=== PATIENT | female | born 1940 | race Caucasian/White ===

== ENCOUNTER 2017-08-12 15:41 | Inpatient (IN) | payer MEDICARE ==
[2017-08-12] MEDS ORDERED: Ketorolac Tromethamine 30 MG/ML VIAL ONE (16:58)
[2017-08-12 17:09] LABS: #Eosinphils 0.3 thou/uL (0.0-0.7); #Lymphocytes 1.6 thou/uL (1.20-3.40); #Monocytes 0.5 thou/uL (0.11-0.59); #Neutrophils 4.1 thou/uL (1.40-6.50); %Basophils 0.4 % (0.0-1.0); %Eosinophils 4.7 % (0.0-10.0); %Monocytes 7.4 % (0.0-10.0); %Neutrophils 62.6 % (42.0-75.0); Hemoglobin 9.9 g/dL (12.0-16.0); Mean Corpuscular HGB CONC 31.7 g/dL (32.0-36.0); Mean Corpuscular Hemoglobin 29.2 pg (27.0-31.0); Mean Corpuscular Volume 92.3 fl (81.0-99.0); Mean Platelet Volume 7.2 fL (7.4-10.4); Platelet Count 185 thou/uL (130-400); RBC Distribution Width 11.5 % (11.5-14.5); Red Blood Cell (RBC) Count 3.39 mill/uL (4.20-5.40); White Blood Cell (WBC) Count 6.5 thou/uL (4.8-10.8)
[2017-08-12 17:30] LABS: ALT (SGPT) 11 U/L (8-55); AST (SGOT) 14 U/L (5-34); Albumin 4.1 g/dL (3.4-4.8); Alkaline Phosphatase 79 U/L (40-150); Anion Gap 14 mmol/L (10-20); BUN (Urea Nitrogen) 36 mg/dL (9.8-20.1); Bilirubin, Total 0.3 mg/dL (0.2-1.2); Calc. Creatinine Clearance 0 mL/min (70-130); Calcium 8.9 mg/dL (7.8-10.44); Carbon Dioxide 24 mmol/L (23-31); Chloride 105 mmol/L (98-107); Estimated GFR-MDRD 39; Globulin 2.9 g/dL (2.4-3.5); Glucose 166 mg/dL (83-110); Sodium 138 mmol/L (136-145)
[2017-08-12] MEDS ORDERED: Ampicillin/Sulbactam 3 GM in Sodium Chloride 0.9% 100 ML IVPB ONE (17:30)
--- NOTE | 2017-08-12 18:14 | RAD ---
FRONTAL VIEW CHEST: 08/12/17 COMPARISON: 04/20/17 HISTORY: Fever. FINDINGS: There is enlargement of the cardiac silhouette and prominence of pulmonary vasculature. Bilateral int erstitial opacities are seen. There is obscuration of the left lung base by the enlarged cardiac silh ouette. Vascular calcifications are present. IMPRESSION: Findings indicate decompensated CHF. Correlate clinically. Recommend imaging followup to confirm reso lution. POS: [facility]
--- NOTE | 2017-08-12 18:16 | RAD ---
RIGHT LEG THREE VIEWS: 08/12/17 INDICATION: Cellulitis, pitting edema. FINDINGS: There is no fracture or dislocation of the osseous structures of the right leg. There is chronic appe aring deformity of the imaged right foot. No radiopaque foreign bodies are identified. IMPRESSION: No acute osseous abnormality of the right leg. POS: [facility]
[2017-08-12] MEDS ORDERED: hydrALAZINE 20 MG/ML VIAL SLOW IVP PRN (20:20)
[2017-08-12] MEDS ORDERED: cloNIDine 0.1 MG TAB PO PRN (20:20)
[2017-08-12] MEDS ORDERED: Ondansetron PF 4 MG/2 ML Vial IVP PRN (20:20)
[2017-08-12] MEDS ORDERED: Ondansetron ODT 4 MG TAB PO PRN (20:20)
[2017-08-12] MEDS ORDERED: HumaLOG 300 UNITS/3 ML VIAL SC PRN ×2 (20:20)
[2017-08-12] MEDS ORDERED: Dextrose 50% Abboject 50 ML SYRINGE SLOW IVP PRN (20:20)
[2017-08-12] MEDS ORDERED: Dextrose 5% in Water 1,000 ML IV PRN (20:20)
[2017-08-12 22:02] VITALS: BMI 43.0
--- NOTE | 2017-08-12 23:52 | ULT ---
ULTRASOUND WITH DOPPLER DUPLEX VENOUS LOWER EXTREMITY RIGHT CPT: 59040 ICD-10-PCS: B54D HISTORY: Pain, edema of right lower extremity. TECHNIQUE: Color flow Doppler, spectral waveform analysis of pulsed Doppler, and giles-scale imaging with giovani rocío and augmentation, were used to evaluate the right common femoral, femoral, popliteal, posterior tibial, and superficial femoral, veins; and the proximal portions of the profunda femoral and greater saphenous, veins. FINDINGS: Appropriate compressibility and flow within the imaged deep vein system of the right lower extremity. There is a incidentally imaged circumscribed hypoechoic focus of the right thigh soft tissues measuri ng approximately 2 cm in diameter. IMPRESSION: 1. No DVT. 2. Incidental note of cystic structure within the soft tissues of the right thigh. This is of in determinate etiology. Consider imaging followup to provide continued assessment. POS: [facility]
--- NOTE | 2017-08-13 00:31 | HP ---
DATE OF ADMISSION: 08/12/2017 PRIMARY CARE PROVIDER: Jay Osorio M.D. CHIEF COMPLAINT: Lower extremity pain and swelling. HISTORY OF PRESENT ILLNESS: This is a 77-year-old female who presents from [place] [facility] where she has been a current resident over the last 3 years who has noticed incr easing pain, redness, and swelling in the right greater than left lower extremities. The patient morgan s admit to history of venous stasis dermatitis and cellulitis, most recently treated in the summer of 2016. The patient denies any recent antibiotic exposure, recent fall, injury, greer, or chemical ex posure. The patient felt like the redness was increasing and that it would resolve on its own; howev er, this was progressed with red areas moving up above her knee into the middle a portion of the thig h. The patient denied any known fever or documented fever, but states she has felt warm. The patien t denied any cough, shortness of breath, fainting episodes or shortness of breath while lying flat. The patient does state that she was recently placed on diabetic medications after glucose was consist ent with new onset diabetes. The patient is unsure of the name of the medication, but denies insulin therapy. The patient denied taking any specific home remedies for the lower extremity, but does pro p her leg up when she is sitting. The patient states she is minimally mobile with use of a rolling w alker and contact guard assistance at the [facility]. The patient denied any recent fall s. In the emergency room, the patient underwent general evaluation including plain radiographs of th e lower extremity showing no acute findings. Chest x-ray was performed showing questionable edema; h owever, patient has no specific hypoxia or shortness of breath on exam. PAST MEDICAL HISTORY: 1. Chronic venous stasis with intermittent dermatitis. 2. Generalized weakness with use of a rolling walker. 3. History of venous insufficiency of lower extremities. 4. Diabetes mellitus type 2. Last hemoglobin A1c 10.3 on 06/03/2017. 5. Hypertension. 6. Hypothyroidism. 7. History of severe cervical spinal stenosis with radiculopathy and myelopathy, improved. 8. Osteoarthritis. 9. Morbid obesity. 10. Chronic back pain. PAST SURGICAL HISTORY: 1. Status post cervical spine decompression and fusion. 2. Status post lumbar laminectomy x3. 3. Status post hysterectomy. 4. Status post EGD. CURRENT MEDICATIONS: Based on previous admission in 2017: 1. Lasix 40 mg p.o. b.i.d. 2. Gabapentin 100 mg p.o. t.i.d. 3. Levothyroxine 100 mcg p.o. daily. 4. Lisinopril 10 mg one tab p.o. daily. 5. Metformin 500 mg p.o. b.i.d. 6. Kenalog 200 mg topically b.i.d. p.r.n. ALLERGIES: MORPHINE SULFATE and BACTRIM. FAMILY HISTORY: Positive for hypertension and diabetes. SOCIAL HISTORY: The patient resides at [facility] x3 years. No current alc ohol, tobacco, or illicit drug use. Ambulates with a rolling walker and contact guard assistance. N o current falls. Accompanied by her daughter in the emergency room. REVIEW OF SYSTEMS: The following complete review of systems was negative, unless otherwise mentioned in the HPI or below: Constitutional: Weight loss or gain, ability to conduct usual activities. Sk in: Rash, itching. Eyes: Double vision, pain. ENT/Mouth: Nose bleeding, neck stiffness, pain, te nderness. Cardiovascular: Palpitations, dyspnea on exertion, orthopnea. Respiratory: Shortness of breath, wheezing, cough, hemoptysis, fever or night sweats. Gastrointestinal: Poor appetite, abdom inal pain, heartburn, nausea, vomiting, constipation, or diarrhea. Genitourinary: Urgency, frequenc y, dysuria, nocturia. Musculoskeletal: Pain, swelling. Neurologic/Psychiatric: Anxiety, depressio n. Allergy/Immunologic: Skin rash, bleeding tendency. Otherwise negative except as stated per HPI. PHYSICAL EXAMINATION: VITAL SIGNS: On admission, blood pressure 153/56, pulse 63, respiratory rate 22, temperature 98 deg james Fahrenheit, O2 saturation 96% on 2 liters per minute by nasal cannula. GENERAL APPEARANCE: This is a 77-year-old female, alert and oriented x3, pleasant, convers ant, smiling, in no acute distress. HEENT: Pupils are equal, round, and reactive to light and accommodation. Extraocular muscles are in tact. No scleral icterus, no conjunctival injection. Nares patent. OP is clear. Teeth in fair rep air. NECK: Supple, no cervical adenopathy, no thyromegaly, no carotid bruits, no JVD appreciated. Cervic al spine with limited range of motion in the terminal degrees of rotation. No meningeal signs apprec iated. CHEST: Diminished breath sounds in the bases bilaterally. No rhonchi, wheezing, or crackles. CARDIOVASCULAR: S1, S2 with distant heart sounds. No murmur detected. ABDOMEN: Obese, soft, nontender, nondistended. Bowel sounds are positive in all four quadrants. Th ere is no hepatosplenomegaly. Landmarks are difficult to palpate due to patient's body habitus. EXTREMITIES: Bilateral lower extremity edema to the knees. Right lower extremity with erythema circ umferential below the knee with smaller section of erythema extending above the knee medially. Warm to touch, mild tenderness to palpation. No palpable cords. Pulses are palpable distally at the dors johana pedis, posterior tibial, and popliteal arteries bilaterally. Capillary refill less than 2 secon ds. NEUROLOGIC: Cranial nerves II-XII are grossly intact. No focal or lateralizing signs appreciated. The patient not observed ambulatory during this exam. PERTINENT LABORATORY AND X-RAY FINDINGS: Sodium 138, potassium 5.0, chloride 105, CO2 of 24, BUN 36, creatinine 1.32 with estimated GFR of 39, glucose 166, calcium 8.9, hemoglobin A1c 10.3 on 8. LFTs within normal limits. Albumin 4.1. CBC showed a white blood cell count of 6.5, hemoglobin 10, hematocrit 31, platelet count 185 with normal differential. Plain radiographs of the right lower extremity including tibia and fibula views showed no acute process. Portable chest x-ray dated 08/02 showed questionable prominence of pulmonary vasculature bilaterally. ASSESSMENT AND PLAN: 1. Right lower extremity acute cellulitis. The patient will be admitted to the medical floor. We w ill continue vancomycin 1 gram IV q.12 hours with additional Rocephin 2 grams IV q.24 hours. We will continue serial monitoring of clinical improvement with antibiotic therapy. Check right lower extrem ity venous Doppler study to rule out deep venous thrombosis. Continue Lovenox 40 mg subcutaneously d aily. 2. Chronic venous stasis dermatitis with venous insufficiency. We will continue symptomatic and sup portive management. Consider Wound Care consult if patient clinically decompensates. 3. Chronic kidney disease stage 3. Avoid nephrotoxic agents and contrast media. Repeat creatinine in the a.m. Hold metformin. 4. Diabetes mellitus type 2. Last hemoglobin A1c 10.3 on 05/2017. Insulin sliding scale for reflex ana coverage. Accu-Cheks before meals and at bedtime. 5. Deconditioning. We will obtain PT evaluation for functional assessment. Contact guard assistanc e for out of bed to chair. Fall risk precautions. 6. Prophylaxis. Sequential compression devices held due to lower extremity edema. Lovenox 40 mg marroquin bcutaneously daily. Pepcid 20 mg p.o. b.i.d. 7. Code status is FULL. Surrogate medical decision maker is the patient's daughter.
[2017-08-13] MEDS: Famotidine 20 MG TAB PO SCH ×3 (00:51→20:26)
[2017-08-13] MEDS: cefTRIAXone\\ROCEPHIN 2 GM in Sodium Chloride 0.9% 100 ML IVPB SCH ×2 (00:51→20:27)
[2017-08-13] MEDS: Vancomycin HCl 1 GM in Premix Bag 1 BAG IVPB SCH ×2 (06:06→17:06)
[2017-08-13 08:01] LABS: ALT (SGPT) 13 U/L (8-55); AST (SGOT) 13 U/L (5-34); Albumin 3.7 g/dL (3.4-4.8); Alkaline Phosphatase 68 U/L (40-150); Anion Gap 13 mmol/L (10-20); BUN (Urea Nitrogen) 39 mg/dL (9.8-20.1); Bilirubin, Total 0.4 mg/dL (0.2-1.2); Calc. Creatinine Clearance 72 mL/min (70-130); Calcium 8.6 mg/dL (7.8-10.44); Carbon Dioxide 25 mmol/L (23-31); Chloride 107 mmol/L (98-107); Estimated GFR-MDRD 41; Globulin 2.5 g/dL (2.4-3.5); Glucose 77 mg/dL (83-110); Potassium 4.6 mmol/L (3.5-5.1); Protein, Total 6.2 g/dL (6.0-8.3); Sodium 140 mmol/L (136-145)
[2017-08-13] MEDS: Enoxaparin Sodium 40 MG/0.4 ML SYRINGE SC SCH (08:08)
[2017-08-13 08:41] LABS: Hemoglobin 9.4 g/dL (12.0-16.0); Mean Corpuscular HGB CONC 32.7 g/dL (32.0-36.0); Mean Corpuscular Hemoglobin 30.1 pg (27.0-31.0); Mean Corpuscular Volume 92.1 fl (81.0-99.0); Mean Platelet Volume 7.7 fL (7.4-10.4); Platelet Count 178 thou/uL (130-400); RBC Distribution Width 11.5 % (11.5-14.5); Red Blood Cell (RBC) Count 3.14 mill/uL (4.20-5.40); White Blood Cell (WBC) Count 5.3 thou/uL (4.8-10.8)
[2017-08-13] MEDS ORDERED: Polyethylene Glycol 3350 17 GM Packet PO PRN (09:02)
[2017-08-13] MEDS ORDERED: Mag-Al Plus 1200 MG/1200 MG/120 MG/30 ML UDCUP PO PRN (09:02)
[2017-08-13] MEDS ORDERED: Milk Of Magnesia 30 ML UDCUP PO PRN (09:02)
[2017-08-13] MEDS ORDERED: Acetaminophen 325 MG TAB PO PRN (09:02)
[2017-08-13] MEDS: Glimepiride 1 MG TAB PO SCH ×2 (09:35→20:23)
[2017-08-13 09:48] LABS: Band 1 % (5-11); Eosinophils 7 % (0-10); Lymphocytes 30 % (21-51); MDiff Complete? YES; Monocytes 7 % (0-10); Neutrophil 55 % (42-75); RBC Morphology Normal
--- NOTE | 2017-08-13 11:34 | PDOC.PN ---
- Subjective Encounter Start Date: 08/13/17 Encounter Start Time: 11:33 Subjective: feels better.still some pain in left lef -: Rash better - Objective Resuscitation Status: Resuscitation Status FULL:Full Resuscitation MAR Reviewed: Yes Vital Signs & Weight: Vital Signs (12 hours) Temp Pulse Resp BP Pulse Ox 08/13/17 08:32 98.7 F 70 16 119/70 94 L 08/13/17 08:00 98.7 F 70 16 94 L 08/13/17 04:00 97.5 F L 69 18 123/72 96 08/13/17 00:00 98.2 F 66 18 100/62 97 Result Diagrams: 08/13/17 03:30 08/13/17 06:30 Additional Labs: Accuchecks 08/13/17 08/12/17 04:09 20:32 POC Glucose 91 128 H Radiology Reviewed by me: Yes (Doppler-no DVT) Phys Exam - Physical Examination Constitutional: NAD HEENT: PERRLA, moist MMs, sclera anicteric, oral pharynx no lesions Neck: no nodes, no JVD, supple, full ROM Respiratory: no wheezing, no rales, no rhonchi, clear to auscultation bilateral Cardiovascular: RRR, no significant murmur Gastrointestinal: soft, non-tender, no distention, positive bowel sounds Musculoskeletal: pulses present, edema present erythem abetter on R leg Neurological: non-focal, normal sensation, moves all 4 limbs Psychiatric: normal affect, A&O x 3 Skin: no rash Dx/Plan (1) Cellulitis of right leg Code(s): L03.115 - CELLULITIS OF RIGHT LOWER LIMB Status: Acute (2) Venous stasis ulcer of left lower extremity Code(s): I83.029 - VARICOSE VEINS OF LEFT LOWER EXTREMITY W ULCER OF UNSP SITE Status: Chronic (3) DJD (degenerative joint disease), lumbar Code(s): M51.36 - OTHER INTERVERTEBRAL DISC DEGENERATION, LUMBAR REGION Status : Chronic (4) Hypertension Code(s): I10 - ESSENTIAL (PRIMARY) HYPERTENSION Status: Chronic (5) Hypothyroidism Code(s): E03.9 - HYPOTHYROIDISM, UNSPECIFIED Status: Chronic (6) Morbid obesity Code(s): E66.01 - MORBID (SEVERE) OBESITY DUE TO EXCESS CALORIES Status: Chronic (7) Anemia Code(s): D64.9 - ANEMIA, UNSPECIFIED Status: Resolved - Plan continue antibiotics, PT/OT, out of bed/ambulate, DVT proph w/SCDs cont IV ABx. Clinically better.follow Cx -: OT/PT * . Review of Systems - Review of Systems Constitutional: negative: fever, chills, sweats, weakness, malaise, other ENT: negative: Ear Pain, Ear Discharge, Nose Pain, Nose Discharge, Nose Congestion, Mouth Pain, Mouth Swelling, Throat Pain, Throat Swelling, Other Respiratory: negative: Cough, Dry, Shortness of Breath, Hemoptysis, SOB with Excertion, Pleuritic Pain, Sputum, Wheezing Cardiovascular: negative: chest pain, palpitations, orthopnea, paroxysmal nocturnal dyspnea, edema, light headedness, other Gastrointestinal: negative: Nausea, Vomiting, Abdominal Pain, Diarrhea, Constipation, Melena, Hematochezia, Other Genitourinary: negative: Dysuria, Frequency, Incontinence, Hematuria, Retention , Other Musculoskeletal: negative: Neck Pain, Shoulder Pain, Arm Pain, Back Pain, Hand Pain, Leg Pain, Foot Pain, Other Skin: Rash. negative: Lesions, Barry, Bruising, Other Neurological: negative: Weakness, Numbness, Incoordination, Change in Speech, Confusion, Seizures, Other - Medications/Allergies Allergies/Adverse Reactions: Allergies Allergy/AdvReac Type Severity Reaction Status Date / Time morphine Allergy Verified 06/30/16 20:06 sulfamethoxazole Allergy Verified 06/30/16 20:06 [From Bactrim] trimethoprim [From Bactrim] Allergy Verified 06/30/16 20:06 Medications: Current Medications Acetaminophen (Tylenol) 1,000 mg PO Q6H PRN PRN Reason: Headache/Fever or Mild Pain Acetaminophen (Tylenol) 650 mg PO Q4H PRN PRN Reason: Fever>101/(Mi/Mod/Sev) Pain Al Hydroxide/Mg Hydroxide (Maalox Plus) 30 ml PO Q4H PRN PRN Reason: GI Upset Clonidine (Catapres) 0.1 mg PO Q4H PRN PRN Reason: Systolic BP > 180 Dextrose/Water (Dextrose 50%) 25 gm SLOW IVP PRN PRN PRN Reason: Hypoglycemia Enoxaparin Sodium (Lovenox) 40 mg SC 0900 RELL Last Admin: 08/13/17 08:08 Dose: 40 mg Famotidine (Pepcid) 20 mg PO BID [facility] Last Admin: 08/13/17 08:08 Dose: 20 mg Furosemide (Lasix) 40 mg PO BID [facility] Gabapentin (Neurontin) 100 mg PO TID [facility] Glimepiride (Amaryl) 1 mg PO BID [facility] Last Admin: 08/13/17 09:35 Dose: 1 mg Glucagon (Glucagon) 1 mg IM PRN PRN PRN Reason: Hypoglycemia Hydralazine HCl (Apresoline) 10 mg SLOW IVP Q4H PRN PRN Reason: Systolic BP > 180 Ceftriaxone Sodium 2 gm/ (Sodium Chloride) 100 mls @ 200 mls/hr IVPB Q24HR [facility] Last Admin: 08/13/17 00:51 Dose: Not Given Dextrose/Water (D5w) 1,000 mls @ 0 mls/hr IV .Q0M PRN; As Directed PRN Reason: Hypoglycemia Vancomycin HCl 1 gm/ Device 200 mls @ 200 mls/hr IVPB 0600,1800 [facility] Last Admin: 08/13/17 06:06 Dose: 200 mls Insulin Human Lispro (Humalog) 0 units SC .MILD SLIDING SCALE PRN PRN Reason: Mild Correctional Scale Insulin Human Lispro (Humalog) 0 units SC .BEDTIME SLIDING SC PRN PRN Reason: Bedtime Correctional Scale Levothyroxine Sodium (Synthroid) 100 mcg PO 0600 [facility] Lisinopril (Zestril) 10 mg PO DAILY [facility] Magnesium Hydroxide (Milk Of Magnesium) 30 ml PO DAILY PRN PRN Reason: Constipation Multivitamins (Theragran) 1 tab PO DAILY [facility] Ondansetron HCl (Zofran Odt) 4 mg PO Q6H PRN PRN Reason: Nausea/Vomiting Ondansetron HCl (Zofran) 4 mg IVP Q6H PRN PRN Reason: Nausea/Vomiting Polyethylene Glycol (Miralax) 17 gm PO DAILYPRN PRN PRN Reason: Constipation Sodium Chloride (Flush - Normal Saline) 10 ml IVF Q12HR [facility] Sodium Chloride (Flush - Normal Saline) 10 ml IVF PRN PRN PRN Reason: Saline Flush Spironolactone (Aldactone) 12.5 mg PO DAILY [facility] Triamcinolone Acetonide (Kenalog 0.1% Cream) 0 gm TOP BID [facility]
[2017-08-13] MEDS: Gabapentin 100 MG CAP PO SCH ×2 (14:00→20:24)
[2017-08-13] MEDS: Acetaminophen 500 MG TAB PO PRN (20:26)
[2017-08-13] MEDS: Triamcinolone 0.1% Cream 15 GM TUBE TOP SCH (20:29)
[2017-08-13] MEDS ORDERED: Furosemide 40 MG TAB PO SCH (21:00)
[2017-08-13] MEDS ORDERED: Glimepiride 4 MG TAB PO SCH (21:00)
[2017-08-13] MEDS ORDERED: Triamcinolone 40 MG/ML VIAL TOP SCH (21:00)
[2017-08-14 05:48] LABS: Vancomycin, Trough 21.2 ug/mL
[2017-08-14] MEDS: Levothyroxine Sodium 100 MCG TAB PO SCH (06:04)
[2017-08-14] MEDS: Vancomycin HCl 1 GM in Premix Bag 1 BAG IVPB SCH (06:04)
[2017-08-14] MEDS ORDERED: Non-Formulary Item 1 EACH (Multivitamin [Multivitamins] 1 CAP) PO SCH (09:00)
[2017-08-14] MEDS: Famotidine 20 MG TAB PO SCH ×2 (09:37→20:13)
[2017-08-14] MEDS: Glimepiride 1 MG TAB PO SCH ×2 (09:37→20:13)
[2017-08-14] MEDS: Lisinopril 10 MG TAB PO SCH (09:37)
[2017-08-14] MEDS: Furosemide 40 MG TAB PO SCH ×2 (09:38→14:33)
[2017-08-14] MEDS: Multivit, Therapeutic 1 TAB PO SCH (09:38)
[2017-08-14] MEDS: Spironolactone 25 MG TAB PO SCH (09:38)
[2017-08-14] MEDS: Gabapentin 100 MG CAP PO SCH ×3 (09:38→20:13)
[2017-08-14] MEDS: Enoxaparin Sodium 40 MG/0.4 ML SYRINGE SC SCH (09:40)
[2017-08-14] MEDS: Triamcinolone 0.1% Cream 15 GM TUBE TOP SCH ×2 (09:48→23:42)
--- NOTE | 2017-08-14 11:53 | PQF ---
CLINICAL DOCUMENTATION IMPROVEMENT CLARIFICATION FORM: ICD-10 Updated PLEASE DO AN ADDENDUM TO THE PROGRESS NOTE WITH ANY DOCUMENTATION UPDATES OR ADDITIONS AND CARRY THROUGH TO DC SUMMARY. THANK YOU. DATE: 08/14/17 ATTN: Dr. Cerda Please exercise your independent, professional judgment in responding to the clarification form. Clinical indicators are provided on the bottom of this form for your review Please check appropriate box(s): I (concur) with the Nursing Assessment findings as stated below. [ ] Pressure Ulcer: (Stage I: Erythema; Stage II: Partial thickness; Stage III : Full thickness; Stage IV: Necrosis to muscle/bone) [ X ] Location: ____Sacrococcygeal Stage (I to IV): _2 (Left Right Bilateral N/ A ) [ ] Location: Stage (I to IV): (Left Right Bilateral N/A ) [ ] No pressure ulcer diagnosis [ ] Deep tissue injury [ ] Other diagnosis [ ] Unable to determine In addition, please specify: Present on Admission (POA): [ X ] Yes [ ] No [ ] Unable to determine For continuity of documentation, please document condition throughout progress notes and discharge summary. Thank You. CLINICAL INDICATORS - SIGNS / SYMPTOMS / LABS NURSING ASSESSMENT 08/13/17 @ 0800: SACROCOCCYGEAL PRESSURE ULCER. STAGE II RISKS: H&P: HX OF CHRONIC VENOUS STASIS W/ INTERMITTENT DERMATITIS. GENERALIZED WEAKNESS W/ USE OF A ROLLING WALKER. DM 2, HYPERTENSION. TREATMENT: SKIN INTERVENTIONS PER NURSING PROTOCOL: SKIN KEPT FROM EXCESSIVE MOISTURE TURN 30 DEGREES SIDE TO SIDE. SUPPORT PILLOWS PLACED. Pre-ulcer skin changes limited to persistent focal edema (Stage 1) Abrasion, blister, partial thickness skin loss involving epidermis and/or dermis (Stage 2) Full thickness skin loss involving damage or necrosis of SQ tissue. (Stage 3) Necrosis of soft tissue through to underlying muscle, tendon, or bone. (Stage 4) Purple or maroon discolored skin or blood filled blister Thank you, Ashley (This form is maintained as a part of the permanent medical record) 2015 [email or web address]. All Rights Reserved Ashley London RN, BSN [email or web address] Office: [phone] [facility]
--- NOTE | 2017-08-14 15:06 | PDOC.PN ---
- Subjective Encounter Start Date: 08/14/17 Encounter Start Time: 15:04 Subjective: feels better. no new complaints - Objective Resuscitation Status: Resuscitation Status FULL:Full Resuscitation MAR Reviewed: Yes Vital Signs & Weight: Vital Signs (12 hours) Temp Pulse Resp BP BP Pulse Ox 08/14/17 09:37 117/70 08/14/17 08:00 98.9 F 70 18 94 L 08/14/17 07:26 98.9 F 70 18 117/70 94 L I&O: 08/13/17 08/14/17 08/15/17 06:59 06:59 06:59 Intake Total 680 400 Balance 680 400 Result Diagrams: 08/13/17 03:30 08/13/17 06:30 Additional Labs: Accuchecks 08/14/17 08/14/17 08/13/17 11:24 06:07 20:23 POC Glucose 192 H 94 186 H 08/13/17 17:12 POC Glucose 112 H Microbiology 08/12/17 16:57 Venous blood - Right Hand Blood Culture - Preliminary Specimen has been received and culture in progress. No Growth to date. 08/12/17 16:57 Venous blood - Right Hand Blood Culture - Preliminary NO GROWTH AT 48 HOURS 08/12/17 16:57 Venous blood - Right Arm Blood Culture - Preliminary Specimen has been received and culture in progress. No Growth to date. 08/12/17 16:57 Venous blood - Right Arm Blood Culture - Preliminary NO GROWTH AT 48 HOURS Laboratory Tests 12/15/16 01/23/17 03/12/17 05:00 11:45 16:30 Creatinine 0.82 1.20 H 1.27 H 04/20/17 05/27/17 08/12/17 23:25 16:20 16:52 Creatinine 1.29 H 1.26 H 1.32 H 08/13/17 06:30 Creatinine 1.27 H Phys Exam - Physical Examination Constitutional: NAD HEENT: PERRLA, moist MMs, sclera anicteric, oral pharynx no lesions Neck: no nodes, no JVD, supple, full ROM Respiratory: no wheezing, no rales, no rhonchi, clear to auscultation bilateral Cardiovascular: RRR, no significant murmur, no rub, gallop Gastrointestinal: soft, non-tender, no distention, positive bowel sounds Musculoskeletal: pulses present, edema present reduced erythema of R lower leg Psychiatric: normal affect, A&O x 3 Skin: no rash Dx/Plan (1) Cellulitis of right leg Code(s): L03.115 - CELLULITIS OF RIGHT LOWER LIMB Status: Acute (2) Venous stasis ulcer of left lower extremity Code(s): I83.029 - VARICOSE VEINS OF LEFT LOWER EXTREMITY W ULCER OF UNSP SITE Status: Chronic (3) DJD (degenerative joint disease), lumbar Code(s): M51.36 - OTHER INTERVERTEBRAL DISC DEGENERATION, LUMBAR REGION Status : Chronic (4) Hypertension Code(s): I10 - ESSENTIAL (PRIMARY) HYPERTENSION Status: Chronic (5) Hypothyroidism Code(s): E03.9 - HYPOTHYROIDISM, UNSPECIFIED Status: Chronic (6) Morbid obesity Code(s): E66.01 - MORBID (SEVERE) OBESITY DUE TO EXCESS CALORIES Status: Chronic (7) Anemia Code(s): D64.9 - ANEMIA, UNSPECIFIED Status: Resolved (8) Sacral decubitus ulcer, stage II Code(s): L89.152 - PRESSURE ULCER OF SACRAL REGION, STAGE 2 Status: Chronic - Plan continue antibiotics, out of bed/ambulate, DVT proph w/SCDs cont IV ABx.clinically better -: asking for Swing bed placement.wiill try to arrange -: DC in next 24 hours if arranged -: cont home meds as below HS stable * . Review of Systems - Review of Systems Constitutional: weakness. negative: fever, chills, sweats, malaise, other ENT: negative: Ear Pain, Ear Discharge, Nose Pain, Nose Discharge, Nose Congestion, Mouth Pain, Mouth Swelling, Throat Pain, Throat Swelling, Other Respiratory: negative: Cough, Dry, Shortness of Breath, Hemoptysis, SOB with Excertion, Pleuritic Pain, Sputum, Wheezing Cardiovascular: negative: chest pain, palpitations, orthopnea, paroxysmal nocturnal dyspnea, edema, light headedness, other Gastrointestinal: negative: Nausea, Vomiting, Abdominal Pain, Diarrhea, Constipation, Melena, Hematochezia, Other Genitourinary: negative: Dysuria, Frequency, Incontinence, Hematuria, Retention , Other Musculoskeletal: negative: Neck Pain, Shoulder Pain, Arm Pain, Back Pain, Hand Pain, Leg Pain, Foot Pain, Other Skin: negative: Rash, Lesions, Barry, Bruising, Other Neurological: negative: Weakness, Numbness, Incoordination, Change in Speech, Confusion, Seizures, Other - Medications/Allergies Allergies/Adverse Reactions: Allergies Allergy/AdvReac Type Severity Reaction Status Date / Time morphine Allergy Verified 06/30/16 20:06 sulfamethoxazole Allergy Verified 06/30/16 20:06 [From Bactrim] trimethoprim [From Bactrim] Allergy Verified 06/30/16 20:06 Medications: Current Medications Acetaminophen (Tylenol) 1,000 mg PO Q6H PRN PRN Reason: Headache/Fever or Mild Pain Last Admin: 08/13/17 20:26 Dose: 1,000 mg Acetaminophen (Tylenol) 650 mg PO Q4H PRN PRN Reason: Fever>101/(Mi/Mod/Sev) Pain Al Hydroxide/Mg Hydroxide (Maalox Plus) 30 ml PO Q4H PRN PRN Reason: GI Upset Clonidine (Catapres) 0.1 mg PO Q4H PRN PRN Reason: Systolic BP > 180 Dextrose/Water (Dextrose 50%) 25 gm SLOW IVP PRN PRN PRN Reason: Hypoglycemia Enoxaparin Sodium (Lovenox) 40 mg SC 0900 [facility] Last Admin: 08/14/17 09:40 Dose: 40 mg Famotidine (Pepcid) 20 mg PO BID [facility] Last Admin: 08/14/17 09:37 Dose: 20 mg Furosemide (Lasix) 40 mg PO 0900,1400 [facility] Last Admin: 08/14/17 14:33 Dose: 40 mg Gabapentin (Neurontin) 100 mg PO TID [facility] Last Admin: 08/14/17 14:33 Dose: 100 mg Glimepiride (Amaryl) 1 mg PO BID [facility] Last Admin: 08/14/17 09:37 Dose: 1 mg Glucagon (Glucagon) 1 mg IM PRN PRN PRN Reason: Hypoglycemia Hydralazine HCl (Apresoline) 10 mg SLOW IVP Q4H PRN PRN Reason: Systolic BP > 180 Ceftriaxone Sodium 2 gm/ (Sodium Chloride) 100 mls @ 200 mls/hr IVPB Q24HR [facility] Last Admin: 08/13/17 20:27 Dose: 100 mls Dextrose/Water (D5w) 1,000 mls @ 0 mls/hr IV .Q0M PRN; As Directed PRN Reason: Hypoglycemia Vancomycin HCl 750 mg/ Sodium (Chloride) 250 mls @ 200 mls/hr IVPB 0600,1800 [facility] Insulin Human Lispro (Humalog) 0 units SC .MILD SLIDING SCALE PRN PRN Reason: Mild Correctional Scale Insulin Human Lispro (Humalog) 0 units SC .BEDTIME SLIDING SC PRN PRN Reason: Bedtime Correctional Scale Levothyroxine Sodium (Synthroid) 100 mcg PO 0600 [facility] Last Admin: 08/14/17 06:04 Dose: 100 mcg Lisinopril (Zestril) 10 mg PO DAILY [facility] Last Admin: 08/14/17 09:37 Dose: 10 mg Magnesium Hydroxide (Milk Of Magnesium) 30 ml PO DAILY PRN PRN Reason: Constipation Miscellaneous Medication (Pharmacy To Dose) 1 each IVPB PRN PRN PRN Reason: . Multivitamins (Theragran) 1 tab PO DAILY [facility] Last Admin: 08/14/17 09:38 Dose: 1 tab Ondansetron HCl (Zofran Odt) 4 mg PO Q6H PRN PRN Reason: Nausea/Vomiting Ondansetron HCl (Zofran) 4 mg IVP Q6H PRN PRN Reason: Nausea/Vomiting Polyethylene Glycol (Miralax) 17 gm PO DAILYPRN PRN PRN Reason: Constipation Sodium Chloride (Flush - Normal Saline) 10 ml IVF Q12HR [facility] Last Admin: 08/14/17 09:38 Dose: 10 ml Sodium Chloride (Flush - Normal Saline) 10 ml IVF PRN PRN PRN Reason: Saline Flush Spironolactone (Aldactone) 12.5 mg PO DAILY [facility] Last Admin: 08/14/17 09:38 Dose: 12.5 mg Triamcinolone Acetonide (Kenalog 0.1% Cream) 0 gm TOP BID [facility] Last Admin: 08/14/17 09:48 Dose: 1 applic
[2017-08-14] MEDS: Vancomycin HCl 750 MG in Sodium Chloride 0.9% 250 ML 250 ML IVPB SCH (17:36)
[2017-08-14] MEDS: cefTRIAXone\\ROCEPHIN 2 GM in Sodium Chloride 0.9% 100 ML IVPB SCH (20:12)
[2017-08-14] MEDS: Acetaminophen 500 MG TAB PO PRN (20:16)
[2017-08-15] MEDS: Vancomycin HCl 750 MG in Sodium Chloride 0.9% 250 ML 250 ML IVPB SCH (06:15)
[2017-08-15] MEDS: Levothyroxine Sodium 100 MCG TAB PO SCH (06:15)
[2017-08-15] MEDS: Multivit, Therapeutic 1 TAB PO SCH (07:57)
[2017-08-15] MEDS: Famotidine 20 MG TAB PO SCH ×2 (07:57→20:31)
[2017-08-15] MEDS: Lisinopril 10 MG TAB PO SCH (07:58)
[2017-08-15] MEDS: Gabapentin 100 MG CAP PO SCH ×3 (07:59→20:31)
[2017-08-15] MEDS: Furosemide 40 MG TAB PO SCH ×2 (07:59→14:18)
[2017-08-15] MEDS: Glimepiride 1 MG TAB PO SCH ×2 (07:59→20:31)
[2017-08-15] MEDS: Spironolactone 25 MG TAB PO SCH (07:59)
[2017-08-15] MEDS: Triamcinolone 0.1% Cream 15 GM TUBE TOP SCH ×2 (08:00→20:36)
[2017-08-15] MEDS: Enoxaparin Sodium 40 MG/0.4 ML SYRINGE SC SCH (08:01)
--- NOTE | 2017-08-15 13:00 | PDOC.PN ---
- Subjective Encounter Start Date: 08/15/17 Encounter Start Time: 12:58 Subjective: feels well. redness and pain much better in leg - Objective Resuscitation Status: Resuscitation Status FULL:Full Resuscitation MAR Reviewed: Yes Vital Signs & Weight: Vital Signs (12 hours) Temp Pulse Resp BP BP Pulse Ox 08/15/17 09:50 98 F 69 20 128/72 96 08/15/17 08:00 98 F 69 20 96 08/15/17 07:58 128/72 I&O: 08/14/17 08/15/17 08/16/17 06:59 06:59 06:59 Intake Total 680 1440 Balance 680 1440 Result Diagrams: 08/13/17 03:30 08/13/17 06:30 Additional Labs: Accuchecks 08/15/17 08/14/17 08/14/17 11:10 20:12 16:35 POC Glucose 145 H 137 H 197 H Microbiology 08/12/17 16:57 Venous blood - Right Hand Blood Culture - Preliminary NO GROWTH AT 48 HOURS 08/12/17 16:57 Venous blood - Right Arm Blood Culture - Preliminary NO GROWTH AT 48 HOURS Phys Exam - Physical Examination Constitutional: NAD HEENT: PERRLA, moist MMs, sclera anicteric, oral pharynx no lesions Neck: no nodes, no JVD, supple, full ROM Respiratory: no wheezing, no rales, no rhonchi, clear to auscultation bilateral Cardiovascular: RRR, no significant murmur Gastrointestinal: soft, non-tender, no distention, positive bowel sounds Musculoskeletal: no edema, pulses present RLE erythem receeding Neurological: non-focal, normal sensation, moves all 4 limbs Psychiatric: normal affect, A&O x 3 Skin: no rash Dx/Plan (1) Cellulitis of right leg Code(s): L03.115 - CELLULITIS OF RIGHT LOWER LIMB Status: Acute (2) Venous stasis ulcer of left lower extremity Code(s): I83.029 - VARICOSE VEINS OF LEFT LOWER EXTREMITY W ULCER OF UNSP SITE Status: Chronic (3) DJD (degenerative joint disease), lumbar Code(s): M51.36 - OTHER INTERVERTEBRAL DISC DEGENERATION, LUMBAR REGION Status : Chronic (4) Hypertension Code(s): I10 - ESSENTIAL (PRIMARY) HYPERTENSION Status: Chronic (5) Hypothyroidism Code(s): E03.9 - HYPOTHYROIDISM, UNSPECIFIED Status: Chronic (6) Morbid obesity Code(s): E66.01 - MORBID (SEVERE) OBESITY DUE TO EXCESS CALORIES Status: Chronic (7) Anemia Code(s): D64.9 - ANEMIA, UNSPECIFIED Status: Resolved (8) Sacral decubitus ulcer, stage II Code(s): L89.152 - PRESSURE ULCER OF SACRAL REGION, STAGE 2 Status: Chronic - Plan continue antibiotics, out of bed/ambulate, DVT proph w/SCDs Cont IV ABx.Clinically better. -: home meds as below. -: DC when swing bed approved. -: am labs * . Review of Systems - Review of Systems Constitutional: weakness. negative: fever, chills, sweats, malaise, other ENT: negative: Ear Pain, Ear Discharge, Nose Pain, Nose Discharge, Nose Congestion, Mouth Pain, Mouth Swelling, Throat Pain, Throat Swelling, Other Respiratory: negative: Cough, Dry, Shortness of Breath, Hemoptysis, SOB with Excertion, Pleuritic Pain, Sputum, Wheezing Cardiovascular: negative: chest pain, palpitations, orthopnea, paroxysmal nocturnal dyspnea, edema, light headedness, other Gastrointestinal: negative: Nausea, Vomiting, Abdominal Pain, Diarrhea, Constipation, Melena, Hematochezia, Other Genitourinary: negative: Dysuria, Frequency, Incontinence, Hematuria, Retention , Other Musculoskeletal: negative: Neck Pain, Shoulder Pain, Arm Pain, Back Pain, Hand Pain, Leg Pain, Foot Pain, Other Skin: negative: Rash, Lesions, Barry, Bruising, Other Neurological: negative: Weakness, Numbness, Incoordination, Change in Speech, Confusion, Seizures, Other - Medications/Allergies Allergies/Adverse Reactions: Allergies Allergy/AdvReac Type Severity Reaction Status Date / Time morphine Allergy Verified 06/30/16 20:06 sulfamethoxazole Allergy Verified 06/30/16 20:06 [From Bactrim] trimethoprim [From Bactrim] Allergy Verified 06/30/16 20:06 Medications: Current Medications Acetaminophen (Tylenol) 1,000 mg PO Q6H PRN PRN Reason: Headache/Fever or Mild Pain Last Admin: 08/14/17 20:16 Dose: 1,000 mg Acetaminophen (Tylenol) 650 mg PO Q4H PRN PRN Reason: Fever>101/(Mi/Mod/Sev) Pain Al Hydroxide/Mg Hydroxide (Maalox Plus) 30 ml PO Q4H PRN PRN Reason: GI Upset Clonidine (Catapres) 0.1 mg PO Q4H PRN PRN Reason: Systolic BP > 180 Dextrose/Water (Dextrose 50%) 25 gm SLOW IVP PRN PRN PRN Reason: Hypoglycemia Enoxaparin Sodium (Lovenox) 40 mg SC 0900 [facility] Last Admin: 08/15/17 08:01 Dose: 40 mg Famotidine (Pepcid) 20 mg PO BID [facility] Last Admin: 08/15/17 07:57 Dose: 20 mg Furosemide (Lasix) 40 mg PO 0900,1400 [facility] Last Admin: 08/15/17 07:59 Dose: 40 mg Gabapentin (Neurontin) 100 mg PO TID [facility] Last Admin: 08/15/17 07:59 Dose: 100 mg Glimepiride (Amaryl) 1 mg PO BID [facility] Last Admin: 08/15/17 07:59 Dose: 1 mg Glucagon (Glucagon) 1 mg IM PRN PRN PRN Reason: Hypoglycemia Hydralazine HCl (Apresoline) 10 mg SLOW IVP Q4H PRN PRN Reason: Systolic BP > 180 Ceftriaxone Sodium 2 gm/ (Sodium Chloride) 100 mls @ 200 mls/hr IVPB Q24HR [facility] Last Admin: 08/14/17 20:12 Dose: 100 mls Dextrose/Water (D5w) 1,000 mls @ 0 mls/hr IV .Q0M PRN; As Directed PRN Reason: Hypoglycemia Vancomycin HCl 750 mg/ Sodium (Chloride) 250 mls @ 200 mls/hr IVPB 0600,1800 [facility] Last Admin: 08/15/17 06:15 Dose: 250 mls Insulin Human Lispro (Humalog) 0 units SC .MILD SLIDING SCALE PRN PRN Reason: Mild Correctional Scale Insulin Human Lispro (Humalog) 0 units SC .BEDTIME SLIDING SC PRN PRN Reason: Bedtime Correctional Scale Levothyroxine Sodium (Synthroid) 100 mcg PO 0600 [facility] Last Admin: 08/15/17 06:15 Dose: 100 mcg Lisinopril (Zestril) 10 mg PO DAILY [facility] Last Admin: 08/15/17 07:58 Dose: 10 mg Magnesium Hydroxide (Milk Of Magnesium) 30 ml PO DAILY PRN PRN Reason: Constipation Miscellaneous Medication (Pharmacy To Dose) 1 each IVPB PRN PRN PRN Reason: . Multivitamins (Theragran) 1 tab PO DAILY [facility] Last Admin: 08/15/17 07:57 Dose: 1 tab Ondansetron HCl (Zofran Odt) 4 mg PO Q6H PRN PRN Reason: Nausea/Vomiting Ondansetron HCl (Zofran) 4 mg IVP Q6H PRN PRN Reason: Nausea/Vomiting Polyethylene Glycol (Miralax) 17 gm PO DAILYPRN PRN PRN Reason: Constipation Sodium Chloride (Flush - Normal Saline) 10 ml IVF Q12HR [facility] Last Admin: 08/15/17 08:00 Dose: 10 ml Sodium Chloride (Flush - Normal Saline) 10 ml IVF PRN PRN PRN Reason: Saline Flush Spironolactone (Aldactone) 12.5 mg PO DAILY [facility] Last Admin: 08/15/17 07:59 Dose: 12.5 mg Triamcinolone Acetonide (Kenalog 0.1% Cream) 0 gm TOP BID [facility] Last Admin: 08/15/17 08:00 Dose: 1 applic
[2017-08-15 17:30] LABS: Vancomycin, Trough 24.6 ug/mL
[2017-08-15] MEDS: Acetaminophen 500 MG TAB PO PRN (19:30)
[2017-08-15] MEDS: cefTRIAXone\\ROCEPHIN 2 GM in Sodium Chloride 0.9% 100 ML IVPB SCH (20:32)
[2017-08-16 05:23] LABS: Anion Gap 11 mmol/L (10-20); BUN (Urea Nitrogen) 30 mg/dL (9.8-20.1); Calc. Creatinine Clearance 89 mL/min (70-130); Calcium 8.4 mg/dL (7.8-10.44); Carbon Dioxide 25 mmol/L (23-31); Chloride 107 mmol/L (98-107); Estimated GFR-MDRD 52; Glucose 90 mg/dL (83-110); Potassium 4.4 mmol/L (3.5-5.1); Sodium 139 mmol/L (136-145)
[2017-08-16] MEDS ORDERED: Vancomycin HCl 1.25 GM in Sodium Chloride 0.9% 250 ML 250 ML IVPB SCH (06:00)
[2017-08-16] MEDS: Levothyroxine Sodium 100 MCG TAB PO SCH (06:15)
[2017-08-16] MEDS: Famotidine 20 MG TAB PO SCH ×2 (07:48→20:27)
[2017-08-16] MEDS: Glimepiride 1 MG TAB PO SCH (07:50)
[2017-08-16] MEDS: Furosemide 40 MG TAB PO SCH ×2 (07:50→14:57)
[2017-08-16] MEDS: Spironolactone 25 MG TAB PO SCH (07:50)
[2017-08-16] MEDS: Multivit, Therapeutic 1 TAB PO SCH (07:52)
[2017-08-16] MEDS: Gabapentin 100 MG CAP PO SCH ×3 (07:52→20:27)
[2017-08-16] MEDS: Lisinopril 10 MG TAB PO SCH (07:52)
[2017-08-16] MEDS: Triamcinolone 0.1% Cream 15 GM TUBE TOP SCH ×2 (07:53→20:28)
[2017-08-16] MEDS: Enoxaparin Sodium 40 MG/0.4 ML SYRINGE SC SCH (07:53)
--- NOTE | 2017-08-16 11:55 | PDOC.PN ---
- Subjective Encounter Start Date: 08/16/17 Encounter Start Time: 11:53 Subjective: feels better. leg pain better -: c/o IV site pain and swelling - Objective Resuscitation Status: Resuscitation Status FULL:Full Resuscitation MAR Reviewed: Yes Vital Signs & Weight: Vital Signs (12 hours) Temp Pulse Resp BP BP Pulse Ox 08/16/17 08:00 98.4 F 65 20 93 L 08/16/17 07:52 115/67 08/16/17 07:12 98.4 F 65 20 115/67 94 L I&O: 08/15/17 08/16/17 08/17/17 06:59 06:59 06:59 Intake Total 1440 1000 Balance 1440 1000 Result Diagrams: 08/13/17 03:30 08/16/17 04:16 Additional Labs: Accuchecks 08/16/17 08/16/17 08/15/17 11:07 06:11 20:26 POC Glucose 173 H 96 183 H 08/15/17 08/15/17 16:22 06:11 POC Glucose 114 H 120 H Microbiology 08/12/17 16:57 Venous blood - Right Hand Blood Culture - Preliminary NO GROWTH AT 48 HOURS 08/12/17 16:57 Venous blood - Right Arm Blood Culture - Preliminary NO GROWTH AT 48 HOURS Phys Exam - Physical Examination Constitutional: NAD HEENT: PERRLA, moist MMs, sclera anicteric, oral pharynx no lesions Neck: no JVD Respiratory: no wheezing, no rales, no rhonchi, clear to auscultation bilateral Cardiovascular: RRR, no significant murmur Gastrointestinal: soft, non-tender, no distention, positive bowel sounds Musculoskeletal: no edema, pulses present Right leg erythem better,no warmth,still operator brandy Neurological: non-focal, normal sensation, moves all 4 limbs Psychiatric: normal affect, A&O x 3 Skin: no rash Dx/Plan (1) Cellulitis of right leg Code(s): L03.115 - CELLULITIS OF RIGHT LOWER LIMB Status: Acute (2) Venous stasis ulcer of left lower extremity Code(s): I83.029 - VARICOSE VEINS OF LEFT LOWER EXTREMITY W ULCER OF UNSP SITE Status: Chronic (3) DJD (degenerative joint disease), lumbar Code(s): M51.36 - OTHER INTERVERTEBRAL DISC DEGENERATION, LUMBAR REGION Status : Chronic (4) Hypertension Code(s): I10 - ESSENTIAL (PRIMARY) HYPERTENSION Status: Chronic (5) Hypothyroidism Code(s): E03.9 - HYPOTHYROIDISM, UNSPECIFIED Status: Chronic (6) Morbid obesity Code(s): E66.01 - MORBID (SEVERE) OBESITY DUE TO EXCESS CALORIES Status: Chronic (7) Anemia Code(s): D64.9 - ANEMIA, UNSPECIFIED Status: Resolved (8) Sacral decubitus ulcer, stage II Code(s): L89.152 - PRESSURE ULCER OF SACRAL REGION, STAGE 2 Status: Chronic - Plan DVT proph w/SCDs clinically better.change IV Abx to PO.DC IV -: awiting placement -: HD stable * . Review of Systems - Review of Systems Constitutional: negative: fever, chills, sweats, weakness, malaise, other ENT: negative: Ear Pain, Ear Discharge, Nose Pain, Nose Discharge, Nose Congestion, Mouth Pain, Mouth Swelling, Throat Pain, Throat Swelling, Other Respiratory: negative: Cough, Dry, Shortness of Breath, Hemoptysis, SOB with Excertion, Pleuritic Pain, Sputum, Wheezing Cardiovascular: negative: chest pain, palpitations, orthopnea, paroxysmal nocturnal dyspnea, edema, light headedness, other Gastrointestinal: negative: Nausea, Vomiting, Abdominal Pain, Diarrhea, Constipation, Melena, Hematochezia, Other Genitourinary: negative: Dysuria, Frequency, Incontinence, Hematuria, Retention , Other Musculoskeletal: negative: Neck Pain, Shoulder Pain, Arm Pain, Back Pain, Hand Pain, Leg Pain, Foot Pain, Other Skin: Rash Neurological: negative: Weakness, Numbness, Incoordination, Change in Speech, Confusion, Seizures, Other - Medications/Allergies Allergies/Adverse Reactions: Allergies Allergy/AdvReac Type Severity Reaction Status Date / Time morphine Allergy Verified 06/30/16 20:06 sulfamethoxazole Allergy Verified 06/30/16 20:06 [From Bactrim] trimethoprim [From Bactrim] Allergy Verified 06/30/16 20:06 Medications: Current Medications Acetaminophen (Tylenol) 1,000 mg PO Q6H PRN PRN Reason: Headache/Fever or Mild Pain Last Admin: 08/15/17 19:30 Dose: 1,000 mg Acetaminophen (Tylenol) 650 mg PO Q4H PRN PRN Reason: Fever>101/(Mi/Mod/Sev) Pain Al Hydroxide/Mg Hydroxide (Maalox Plus) 30 ml PO Q4H PRN PRN Reason: GI Upset Cephalexin (Keflex) 250 mg PO Q6HR [facility] Clonidine (Catapres) 0.1 mg PO Q4H PRN PRN Reason: Systolic BP > 180 Dextrose/Water (Dextrose 50%) 25 gm SLOW IVP PRN PRN PRN Reason: Hypoglycemia Doxycycline Hyclate (Vibramycin) 100 mg PO BID [facility] Enoxaparin Sodium (Lovenox) 40 mg SC 0900 [facility] Last Admin: 08/16/17 07:53 Dose: 40 mg Famotidine (Pepcid) 20 mg PO BID [facility] Last Admin: 08/16/17 07:48 Dose: 20 mg Furosemide (Lasix) 40 mg PO 0900,1400 [facility] Last Admin: 08/16/17 07:50 Dose: 40 mg Gabapentin (Neurontin) 100 mg PO TID [facility] Last Admin: 08/16/17 07:52 Dose: 100 mg Glimepiride (Amaryl) 1 mg PO BID [facility] Last Admin: 08/16/17 07:50 Dose: 1 mg Glucagon (Glucagon) 1 mg IM PRN PRN PRN Reason: Hypoglycemia Hydralazine HCl (Apresoline) 10 mg SLOW IVP Q4H PRN PRN Reason: Systolic BP > 180 Dextrose/Water (D5w) 1,000 mls @ 0 mls/hr IV .Q0M PRN; As Directed PRN Reason: Hypoglycemia Insulin Human Lispro (Humalog) 0 units SC .MILD SLIDING SCALE PRN PRN Reason: Mild Correctional Scale Insulin Human Lispro (Humalog) 0 units SC .BEDTIME SLIDING SC PRN PRN Reason: Bedtime Correctional Scale Levothyroxine Sodium (Synthroid) 100 mcg PO 0600 [facility] Last Admin: 08/16/17 06:15 Dose: 100 mcg Lisinopril (Zestril) 10 mg PO DAILY [facility] Last Admin: 08/16/17 07:52 Dose: 10 mg Magnesium Hydroxide (Milk Of Magnesium) 30 ml PO DAILY PRN PRN Reason: Constipation Miscellaneous Medication (Pharmacy To Dose) 1 each IVPB PRN PRN PRN Reason: . Multivitamins (Theragran) 1 tab PO DAILY [facility] Last Admin: 08/16/17 07:52 Dose: 1 tab Ondansetron HCl (Zofran Odt) 4 mg PO Q6H PRN PRN Reason: Nausea/Vomiting Ondansetron HCl (Zofran) 4 mg IVP Q6H PRN PRN Reason: Nausea/Vomiting Polyethylene Glycol (Miralax) 17 gm PO DAILYPRN PRN PRN Reason: Constipation Sodium Chloride (Flush - Normal Saline) 10 ml IVF Q12HR [facility] Last Admin: 08/16/17 07:48 Dose: 10 ml Sodium Chloride (Flush - Normal Saline) 10 ml IVF PRN PRN PRN Reason: Saline Flush Spironolactone (Aldactone) 12.5 mg PO DAILY [facility] Last Admin: 08/16/17 07:50 Dose: 12.5 mg Triamcinolone Acetonide (Kenalog 0.1% Cream) 0 gm TOP BID [facility] Last Admin: 08/16/17 07:53 Dose: 1 applic
[2017-08-16] MEDS: Cephalexin 250 MG CAP PO SCH ×3 (12:17→23:51)
[2017-08-16] MEDS: Acetaminophen 500 MG TAB PO PRN (17:25)
[2017-08-16] MEDS ORDERED: Glimepiride 1 MG TAB PO SCH (20:15)
[2017-08-16] MEDS: Doxycycline 100 MG CAP PO SCH (20:27)
[2017-08-17] MEDS: Acetaminophen 500 MG TAB PO PRN ×2 (00:46→06:10)
[2017-08-17] MEDS: Cephalexin 250 MG CAP PO SCH ×2 (06:10→12:30)
[2017-08-17] MEDS: Levothyroxine Sodium 100 MCG TAB PO SCH (06:10)
[2017-08-17 07:29] VITALS: BP 124/70; TEMP 98.6
[2017-08-17] MEDS ORDERED: Glimepiride 1 MG TAB PO SCH (08:00)
[2017-08-17] MEDS: Lisinopril 10 MG TAB PO SCH (08:28)
[2017-08-17] MEDS: Furosemide 40 MG TAB PO SCH (08:28)
[2017-08-17] MEDS: Gabapentin 100 MG CAP PO SCH (08:28)
[2017-08-17] MEDS: Spironolactone 25 MG TAB PO SCH (08:28)
[2017-08-17] MEDS: Multivit, Therapeutic 1 TAB PO SCH (08:28)
[2017-08-17] MEDS: Enoxaparin Sodium 40 MG/0.4 ML SYRINGE SC SCH (08:29)
[2017-08-17] MEDS: Doxycycline 100 MG CAP PO SCH (08:29)
[2017-08-17] MEDS: Triamcinolone 0.1% Cream 15 GM TUBE TOP SCH (08:30)
[2017-08-17] MEDS: Famotidine 20 MG TAB PO SCH (09:39)
--- NOTE | 2017-08-17 12:35 | DIS ---
DATE OF ADMISSION: 08/12/2017 DATE OF DISCHARGE: 08/17/2017 CONDITION AT THE TIME OF DISCHARGE: Stable and improved. DISCHARGE DISPOSITION: [facility] swing bed. PRIMARY DISCHARGE DIAGNOSIS: Right lower extremity cellulitis. SECONDARY DISCHARGE DIAGNOSES: 1. Chronic venous stasis of the lower extremities. 2. 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 3. Hypertension. 4. Hypothyroidism. 5. Morbid obesity. 6. Chronic anemia. 7. Sacral decubitus ulcer stage 2. DISCHARGE MEDICATIONS: As follows: Resume home medications as per HPI. New medications, Florastor 250 mg daily, doxycycline 100 mg p.o. b.i.d. and Keflex 250 mg p.o. q.6 hours. Please note that anti biotics were given for 7 more days. Resume home medications as follows, lisinopril 10 mg daily, Shobha ctone 12.5 mg daily, glimepiride 1 mg p.o. b.i.d., Maru lotion topically b.i.d., gabapentin 100 mg t .i.d., Tylenol as needed, Maalox as needed, Synthroid 100 mcg daily, Lasix 40 mg p.o. b.i.d., Kenalog topically b.i.d., MiraLax as needed, milk of magnesia as needed. PRIMARY CARE PHYSICIAN: Jay Osorio M.D. CONSULTATIONS: Inhouse None. PROCEDURES DONE: In the hospital, x-ray of the tibia and fibula of the right leg, which is negative for any acute osseous abnormality. HOSPITAL COURSE: Ms. Leslie is a very pleasant 77-year-old female with past medical history as out lined above presented to the hospital with complaints of lower extremity pain and swelling from her [facility]. She has history of chronic venous stasis dermatitis and cellulit is and most recently was treated in 12/2016 with IV antibiotics. Upon presentation, she was noticed to have worsening of right lower extremity cellulitis extending from her lower leg all the way up to above her knee. She was hemodynamically stable upon presentation. X-ray of the leg done in the ER d id not show any acute osseous processes. She was started on empiric IV antibiotics and was admitted for further evaluation and care. Please see admission history and physical for further details. The patient also underwent an ultrasound of the lower extremity and it was also negative for any DVT. She had somewhat slow response to the IV antibiotic, but eventually the cellulitis started to clear . She was restarted on her home medication including the diuretics and remained stable throughout e hospitalization. PHYSICAL EXAMINATION: She was seen and examined prior to discharge. VITAL SIGNS: Include temperature 98.6, pulse of 75, respirations 18, saturating 94%-97% on room air, blood pressure 124/70. GENERAL: No acute distress, awake, alert, and oriented x3. CHEST: Clear to auscultation without any wheezing, rales or rhonchi. Rhythm is regular without any murmurs, rubs, or gallops. EXTREMITIES: Right lower extremity cellulitis is much improved, but she still has some residual tend erness and erythema, which is receding from the markings. She got done in the ER. LABORATORY DATA: Blood cultures remain negative at 48 hours. Hemoglobin 9.4, which was 9.9 upon adm ission, blood sugar of 152. She is encouraged to follow up with the primary care physician. She was given options for rehabilitation and she chose [facility] bed which was set up for [facility] with the help of the case management. She has been approved and will be discharged today. Total time spent in the discharge of this patient 35 minutes including [id number] interaction and d iscussion of the discharge plan with the patient as well as with the case briefer.
--- NOTE | 2017-09-28 14:19 | EKG ---
Test Reason : Blood Pressure : / mmHG Vent. Rate : 061 BPM Atrial Rate : 340 BPM P-R Int : 000 ms QRS Dur : 078 ms QT Int : 416 ms P-R-T Axes : 000 054 055 degrees QTc Int : 418 ms Junctional rhythm Low voltage QRS Abnormal ECG Reconfirmed by ROSITA ESPINOZA ([id number]), assistant film editor PHILOMENA MUNGUIA ([id number]) on 09/28/2017 2:19:36 PM Referred By: Confirmed By:ROSITA ESPINOZA
== END 2017-08-17 12:52 | disposition swing bed (61) | DRG 603 ==
LOC: ERS 15:41 → T4-A 18:55
PROVIDERS: ADMIT Emergency Medicine; ATTEND Emergency Medicine
DX: L03.115 Cellulitis of right lower limb (principal); L89.152 Pressure ulcer of sacral region, stage 2; E11.22 Type 2 diabetes mellitus with diabetic chronic kidney disease; N18.3 Chronic kidney disease, stage 3 (moderate); E66.01 Morbid (severe) obesity due to excess calories; D64.9 Anemia, unspecified; Z68.41 Body mass index [BMI] 40.0-44.9, adult; I87.8 Other specified disorders of veins; L30.9 Dermatitis, unspecified; Z79.84 Long term (current) use of oral hypoglycemic drugs; E03.9 Hypothyroidism, unspecified; M19.90 Unspecified osteoarthritis, unspecified site; M54.9 Dorsalgia, unspecified; Z88.5 Allergy status to narcotic agent; Z88.2 Allergy status to sulfonamides; I12.9 Hypertensive chronic kidney disease with stage 1 through stage 4 chronic kidney disease, or unspecified chronic kidney disease; M47.9 Spondylosis, unspecified; I83.028 Varicose veins of left lower extremity with ulcer other part of lower leg; M51.36 Other intervertebral disc degeneration, lumbar region
CPT/HCPCS: 36415; 36416; 71045; 80048; 80053; 80202; 83605; 85007; 85025; 85027; 87040; 93005; 94760; 96365; 96366; 96375; G8978-GP-CL; G8979-GP-CJ; J0295; J0696; J1650; J1885; J3370; J7050

== ENCOUNTER 2017-12-16 15:11 | Inpatient (IN) | payer MEDICARE ==
[2017-12-16] MEDS ORDERED: Clindamycin/D5W 900 mg/50 ml Premix Bag ONE (16:28)
[2017-12-16 17:18] LABS: CKMB 1.3 ng/mL (0-6.6); Troponin I Less than 0.010 ng/mL (< 0.028)
--- NOTE | 2017-12-16 18:04 | ULT ---
ULTRASOUND ABDOMEN LIMITED: (RIGHT UPPER QUADRANT) 12/16/17 HISTORY: 77-year-old female with upper abdominal pain and nausea. FINDINGS: Gallbladder: Multiple tiny calculi a few millimeters in size each, intermixed with sludge. Normal wal l thickness. No sonographic Schaefer's sign. Common duct: 3 mm. Liver: Slightly heterogeneously increased echogenicity suggestive of fatty liver. Pancreas: Nonspecific sonographic appearance. Right kidney: No hydronephrosis. IMPRESSION: Positive for cholelithiasis. SU Zuniga POS: SURINDER
[2017-12-16 19:13] LABS: Troponin I Less than 0.010 ng/mL (< 0.028)
[2017-12-16] MEDS ORDERED: Dextrose 5% in Water 1,000 ML IV PRN (19:41)
[2017-12-16] MEDS ORDERED: HumaLOG 300 UNITS/3 ML VIAL SC PRN (19:41)
[2017-12-16] MEDS ORDERED: Dextrose 50% Abboject 50 ML SYRINGE SLOW IVP PRN (19:41)
[2017-12-16] MEDS ORDERED: Nystatin Powder 15 GM BOT TOP PRN (19:46)
[2017-12-16 21:16] VITALS: BMI 41.3
[2017-12-16] MEDS: Vancomycin HCl 1.75 GM in Sodium Chloride 0.9% 500 ML IVPB SCH (22:14)
[2017-12-16 22:51] LABS: Troponin I Less than 0.010 ng/mL (< 0.028)
--- NOTE | 2017-12-17 00:14 | HP ---
CHIEF COMPLAINT: Chest pain. HISTORY OF PRESENT ILLNESS: This patient is a 77-year-old female with history of multiple prior admi ssions for cellulitis in the right lower extremity. The patient today reports that she is having robby st pressure that started after breakfast around 7:30 in the morning. It was initially described as a pressure sensation on the right side of the chest, but eventually migrated to central chest and cove r the entire anterior chest wall. She has reported some gradual progression of this even over the pr evious couple of days. She had no nausea, vomiting or diaphoresis. She did have a bit of dizziness, feel like the room is spinning a bit, especially when standing up. The patient also reports a rash to her right lower extremity for 2-3 days. This has been recurring c ellulitis that has been treated on many occasions. She has been using some steroid lotion for about 4 days. She denies any associated fevers or chills. Also, of note, the patient has recently been on a course of antibiotics for UTI, but she is not aware of what those antibiotics are at this time. REVIEW OF SYSTEMS: Notable for some general malaise. She has had the lower extremity edema. She linares s had some mild palpitations associated with chest pain for the last few days. The patient also repo rts chronic generalized weakness from prior neurologic issues. PAST MEDICAL HISTORY: Notable for chronic low back pain, congestive heart failure, CVA, hypertension , diabetes mellitus, hypothyroidism, recurrent right lower extremity cellulitis and history of cervic al stenosis requiring surgical decompression. PAST SURGICAL HISTORY: Multiple prior back surgeries, hysterectomy, prior anterior approach, decompr ession of cervical spinal stenosis and tonsillectomy. FAMILY HISTORY: Father had an aneurysm. Mother had heart disease and stroke. SOCIAL HISTORY: Nonsmoker, nondrinker, nondrug user. The patient is . She lives in an [facility] facility in [place]. She is DO NOT INTUBATE and her surrogate decision maker would Shakila mandel, her daughter reachable at [phone]. ALLERGIES: Include MORPHINE, SULFA, and SULFAMETHOXAZOLE. CURRENT MEDICATIONS: Include triamcinolone cream, Aldactone 12.5 every day, MiraLax 17 grams daily, multivitamin 1 daily, lisinopril 10 every day, Synthroid 100 mcg every day, glimepiride 1 p.o. daily, gabapentin 300 t.i.d., Lasix 80 mg q.a.m. and 40 mg every 1400 hours, clindamycin 300 mg p.o. q.i.d. , Keflex 500 mg q.6 hours and Tylenol p.r.n. PHYSICAL EXAMINATION: VITAL SIGNS: Temperature 98.5, pulse 65, respirations 18, O2 sat 94%, blood pressure 117/58. GENERAL APPEARANCE: Obese age appropriate female in no distress. She is awake, alert, oriented, ple asant, cooperative. HEENT: PERRL. No OP lesions. NECK: Supple and symmetric. CARDIOVASCULAR: Regular rate and rhythm, no murmur. LUNGS: Clear to auscultation bilaterally. ABDOMEN: Soft, nontender, nondistended, positive bowel sounds. SKIN: Warm and dry. She does have significant erythema over the anteromedial aspect of the right ca lf. The skin has a bumpy appearance in this area and it is warm to touch. SKIN: Reveals some foul smelling moist areas in the pannus folds. LABORATORY DATA: White blood cell count 6.6, hemoglobin 9.7, platelets 180. Sodium 141, potassium 5 .0, BUN 40, creatinine 1.32, magnesium 2.7, AST 47. Troponins negative x3. TSH 1.54. Chest x-ray n egative. Ultrasound of the right upper quadrant obtained in the Emergency Department reveals gallsto bria. No sonographic Schaefer's sign. Some fatty liver, possible. EKG shows no evidence of ischemic c hanges. IMRPESSION AND PLAN: 1. Chest pain. Patient does have some risk factors for coronary artery disease. We will keep on te le overnight. Continue to check isoenzymes. We will get a stress test in the morning. 2. Right lower extremity cellulitis. The patient has been on numerous antibiotics. We will start h er on vancomycin. We are going to consult ID given the recurrent nature of this to ensure that we ca n try to prevent this from coming back in the future as much as possible. 3. Diabetes mellitus. Continue with the usual meds along with sliding scale insulin with Accu-Cheks . 4. Hypertension. Continue with the lisinopril. 5. Hypothyroidism. Continue with her current Synthroid dose.
[2017-12-17 01:17] LABS: Troponin I Less than 0.010 ng/mL (< 0.028)
[2017-12-17 05:50] LABS: #Eosinphils 0.2 thou/uL (0.0-0.7); #Lymphocytes 0.7 thou/uL (1.20-3.40); #Monocytes 0.4 thou/uL (0.11-0.59); #Neutrophils 3.5 thou/uL (1.40-6.50); %Basophils 0.8 % (0.0-1.0); %Eosinophils 4.5 % (0.0-10.0); %Lymphocytes 14.3 % (21.0-51.0); %Monocytes 8.8 % (0.0-10.0); %Neutrophils 71.6 % (42.0-75.0); Mean Corpuscular HGB CONC 33.3 g/dL (32.0-36.0); Mean Corpuscular Hemoglobin 29.5 pg (27.0-31.0); Mean Corpuscular Volume 88.7 fL (78.0-98.0); Mean Platelet Volume 7.8 fL (7.4-10.4); Platelet Count 161 thou/uL (130-400); RBC Distribution Width 11.3 % (11.5-14.5); White Blood Cell (WBC) Count 4.9 thou/uL (4.8-10.8)
[2017-12-17 06:14] LABS: Anion Gap 11 mmol/L (10-20); BUN (Urea Nitrogen) 34 mg/dL (9.8-20.1); Calc. Creatinine Clearance 76 mL/min (70-130); Calcium 8.5 mg/dL (7.8-10.44); Carbon Dioxide 27 mmol/L (23-31); Chloride 105 mmol/L (98-107); Estimated GFR-MDRD 46; Glucose 98 mg/dL (83-110); Potassium 4.4 mmol/L (3.5-5.1); Sodium 139 mmol/L (136-145)
[2017-12-17] MEDS: Enoxaparin Sodium 30 MG/0.3 ML SYRINGE SC SCH (09:14)
[2017-12-17] MEDS: Acetaminophen 325 MG TAB PO PRN ×2 (09:14→16:07)
--- NOTE | 2017-12-17 14:01 | NM ---
RADIONUCLIDE STRESS ONLY MYOCARDIAL PERFUSION SCAN WITH CT ATTENUATION CORRECTION AND SPECT IMAGING: LEFT VENTRICULAR WALL MOTION EVALUATION AND EJECTION FRACTION: HISTORY: Chest pain. FINDINGS: Heterogeneous uptake of radiotracer throughout the left ventricular myocardium on the stress images, without focal perfusion defect apparent. QGS analysis of gated SPECT images show no focal wall motion abnormalities. Ejection fraction calcul ated at 79%. IMPRESSION: Normal myocardial perfusion stress only examination. Normal left ventricular ejection fraction. POS: SURINDER
[2017-12-17] MEDS: Gabapentin 100 MG CAP PO SCH ×2 (15:03→21:17)
[2017-12-17] MEDS: Furosemide 40 MG TAB PO SCH (15:04)
[2017-12-17] MEDS: Vancomycin HCl 1.75 GM in Sodium Chloride 0.9% 500 ML IVPB SCH (21:29)
--- NOTE | 2017-12-18 00:37 | CON ---
DATE OF CONSULTATION: 12/17/2017 REASON FOR CONSULTATION: Cellulitis. HISTORY OF PRESENT ILLNESS: A 77-year-old has quite a few admissions in [place], and also a few ones in the main hospital here in [place]. In 2015, the patient had hemoptysis felt secondary to bronchiectasis. In 08/2016, she came in with a "cellulitis" right lower extremity with a history of venous insufficiency. In 12/2016, she was admitted again with "cellulitis" lower extremities and in 08/2017, she was diagnosed with right lower extremity cellulitis as well. Finally in September and October 2017, she was admitted to [place] with weakness. She also has a history of chronic spinal problems and mostly in the lower back, but also an episode of C-spine injury, which led to quadrant. At this time, she is readmitted with a sensation of chest pressure following breakfast with progression and then she notices changes in the lower extremity, particularly in the right side for the past 2-3 days. The patient has chronic hyperalgesia as well as allodynia in lower extremities. No fever or chills, no headaches, no vomiting, hematemesis, melena, no dyspnea or chest pain, no abdominal pain, no diarrhea. She voids without difficulty. PAST MEDICAL HISTORY: Multiple spine problems including low back pain and fusion surgeries, C-spine injury with quadriparesis with improvement, prior hypertension, type 2 diabetes, hypothyroidism, venous stasis of lower extremities, reported episodes of cellulitis. FAMILY HISTORY: Noncontributory. SOCIAL HISTORY: She lives in an assisted living facility in [place]. Never a smoker. ALLERGIES: MORPHINE, SULFA DRUGS. CURRENT MEDICATIONS: Tylenol, dextrose, Lovenox, Lasix, Neurontin, Amaryl, insulin, Synthroid, Zestril, Aldactone, and vancomycin. PHYSICAL EXAMINATION: VITAL SIGNS: Essentially normal. O2 sats are decreased 90%-94%. SKIN: Examination shows a very faint mild salmon type erythema in the posterior aspect of her right calf region with borderline changes in the calf skin region medial aspect. Remainder aspects of her lower extremity skin appears to be normal. There is no lymphadenopathy. There is marked hyperalgesia and allodynia in lower extremities extending from the toes all the way to the mid thigh region. She has peripheral IV access and voiding spontaneously. No lymphadenopathy. HEENT: Ocular movements conjugate. Oral cavity normal. NECK: Supple. LUNGS: With symmetric clear breath sounds. HEART: S1, S2, regular rate. No S3, S4. ABDOMEN: Soft, nondistended. No ascites. No bladder distention. EXTREMITIES: No joint inflammatory activity noted. Range of motion of ankle, toes, knees are preserved. Pulses 2+ in dorsalis pedis. Cap refill normal. NEUROLOGIC: She is awake, oriented, follows commands. LABORATORY DATA: White cell count 4.9, hemoglobin 10, MCV 88, platelets 161, 71 % neutrophils, 14% lymphocytes, and creatinine 1.14, which is a bit higher than her baseline. She had a nuclear stress test and showed normal perfusion exam, normal ejection fraction. ASSESSMENT: Chronic spinal problems, prior C-spine injury with quadriparesis and improvement, fusion of the lumbosacral spine, chronic allodynia and hyperalgesia, venous insufficiency with stasis dermatitis. DISCUSSION: The clinical picture is more consistent with hyperalgesia and allodynia following spine injury with spinal cord compression, than cellulitis. She has been started on antimicrobial therapy and we can continue it and see the extent of improvement, but I expect that she will continue having this enhanced pain sensation as well as dysesthesia to non-noxious stimuli. The management of this condition is quite problematic and a variety of different modalities can be attempted including anti-seizure medications, Neurontin and so on. It appears that she is already on Neurontin, maybe consultation with pain specialist might be helpful subsequently. She does have skin changes in R calf which are consistent with stasis and lymphedema and peau d'orange changes. MTDD
[2017-12-18] MEDS: Levothyroxine Sodium 100 MCG TAB PO SCH (06:07)
[2017-12-18] MEDS: Glimepiride 1 MG TAB PO SCH (08:00)
[2017-12-18] MEDS: Lisinopril 10 MG TAB PO SCH (08:51)
[2017-12-18] MEDS: Multivit, Therapeutic 1 TAB PO SCH (08:51)
[2017-12-18] MEDS: Gabapentin 100 MG CAP PO SCH ×3 (08:51→20:22)
[2017-12-18] MEDS: Spironolactone 25 MG TAB PO SCH (08:52)
[2017-12-18] MEDS: Furosemide 80 MG TAB PO SCH (08:52)
[2017-12-18] MEDS: Polyethylene Glycol 3350 17 GM Packet PO SCH (08:55)
[2017-12-18] MEDS: Enoxaparin Sodium 30 MG/0.3 ML SYRINGE SC SCH (08:56)
--- NOTE | 2017-12-18 14:13 | PRG ---
DATE OF SERVICE: 12/17/2017 SUBJECTIVE: The patient is feeling a little bit better today. Her chest pressure type pain resolved. She has no other new complaint. OBJECTIVE: VITAL SIGNS: BP 130/60. GENERAL: Age appropriate female who was alert, obese, no distress, awake, alert , oriented, pleasant, cooperative. HEENT: PERRL, No OP lesions. NECK: Supple. HEART: Regular rate and rhythm without murmur. LUNGS: Clear bilaterally. ABDOMEN: Soft, nontender, nondistended. EXTREMITIES: Right lower extremity has persistent denser erythema with warmth over the anteromedial aspect from above the ankle to just below the knee. SKIN: Very boggy in this area, but there is no particular pustules noted. LABORATORY DATA: White count 12.8, hemoglobin 10.0, platelet count 161. BUN 34 , creatinine 1.14, glucose 108 to 183. Troponins negative. Stress test was negative. IMPRESSION AND PLAN: 1. Chest pain. Patient has ruled out, has had a negative stress test and patient can be taken off telemetry and taken to the medical floor. 2. Recurrent cellulitis of the right lower extremity. Continue with the vancomycin and has Dr. Swain can evaluate the patient to determine if there is anything we can do to try and prevent this patient from having significant recurrences. 3. Diabetes mellitus. Continue sliding scale insulin as needed. 4. Hypertension. Continue with lisinopril. 5. Hypothyroidism, stable on Synthroid. 6. Intertrigo of the abdominal pannus, much better today. 7. Chronic kidney disease, baseline at present. [facility] [place]
[2017-12-18] MEDS: Furosemide 40 MG TAB PO SCH (15:00)
--- NOTE | 2017-12-18 15:04 | PRG ---
DATE OF SERVICE: 12/18/2017 SUBJECTIVE: Ms. Leslie is sitting up at the bedside, awake, does not appear in distress. No diarr hea. No respiratory symptoms. OBJECTIVE: VITAL SIGNS: Temperature has been normal for the hospital stay. LUNGS: Clear. HEART: S1, S2, regular rate. ABDOMEN: Soft. EXTREMITIES: Right leg is about the same as yesterday, still quite a bit of sensitivity to touch bot h sides, very symmetric distribution of hyperesthesia or dysesthesia. LABORATORY DATA: White cell count 4.9. The other changes in the labs are about the same. No new la bs submitted. ASSESSMENT AND DISCUSSION: Prior spinal injuries and hyperesthesia/dysesthesia, possible cellulitis. The plan now would be to discharge her on oral Keflex, eventually suppressive Pen-Vee K, although I believe that the neuropathic component is the more important one. I am not even sure that she truly has an infectious cellulitis at this point in time. I discussed with family members the possibility of consulting with [facility].
[2017-12-18] MEDS: Acetaminophen 325 MG TAB PO PRN (20:22)
[2017-12-18 21:24] LABS: Vancomycin, Trough 20.4 ug/mL
--- NOTE | 2017-12-18 22:37 | PDOC.PN ---
- Subjective Encounter Start Date: 12/18/17 Encounter Start Time: 16:00 Doing well. No chest pain. Believes that her leg is feeling better. - Objective Vital Signs & Weight: Vital Signs (12 hours) Temp Pulse Resp BP Pulse Ox 12/18/17 20:00 98.1 F 67 20 109/65 95 12/18/17 16:00 97.7 F 60 20 129/76 97 12/18/17 12:52 122/81 Weight Weight 260 lb I&O: 12/17/17 12/18/17 12/19/17 06:59 06:59 06:59 Intake Total 510 1490 Balance 510 1490 Result Diagrams: 12/17/17 05:10 12/17/17 05:10 Additional Labs: Accuchecks 12/18/17 12/18/17 12/18/17 20:26 16:58 12:50 POC Glucose 202 H 118 H 150 H 12/18/17 12/18/17 12/17/17 11:48 04:40 20:15 POC Glucose 194 H 119 H 142 H Phys Exam - Physical Examination Constitutional: NAD Respiratory: no wheezing, no rales, no rhonchi, clear to auscultation bilateral Cardiovascular: RRR, no significant murmur Gastrointestinal: soft, non-tender, no distention, positive bowel sounds Dx/Plan (1) Stasis dermatitis Code(s): I87.2 - VENOUS INSUFFICIENCY (CHRONIC) (PERIPHERAL) Status: Acute Qualifiers: Laterality: bilateral Qualified Code(s): I87.2 - Venous insufficiency ( chronic) (peripheral) (2) Chest pain Code(s): R07.9 - CHEST PAIN, UNSPECIFIED Status: Acute (3) Cellulitis of right leg Code(s): L03.115 - CELLULITIS OF RIGHT LOWER LIMB Status: Resolved - Plan * Chest pain is resolved and workup is negative. Appreciate Dr. Swain' input. Anticipate discharge in am. Possibly go to swing bed in [place]. Will stay on Keflx for one week and then oral Pen VK.
[2017-12-18] MEDS: Vancomycin HCl 1.5 GM in Sodium Chloride 0.9% 250 ML 300 ML IVPB SCH (22:55)
[2017-12-19] MEDS: Levothyroxine Sodium 100 MCG TAB PO SCH (05:40)
[2017-12-19] MEDS: Glimepiride 1 MG TAB PO SCH (08:30)
[2017-12-19] MEDS: Furosemide 80 MG TAB PO SCH (08:31)
[2017-12-19] MEDS: Gabapentin 100 MG CAP PO SCH ×3 (08:31→20:52)
[2017-12-19] MEDS: Spironolactone 25 MG TAB PO SCH (08:32)
[2017-12-19] MEDS: Lisinopril 10 MG TAB PO SCH (08:32)
[2017-12-19] MEDS: Multivit, Therapeutic 1 TAB PO SCH (08:32)
[2017-12-19] MEDS: Polyethylene Glycol 3350 17 GM Packet PO SCH (08:32)
[2017-12-19] MEDS: Enoxaparin Sodium 30 MG/0.3 ML SYRINGE SC SCH (08:32)
[2017-12-19] MEDS: Furosemide 40 MG TAB PO SCH (14:40)
--- NOTE | 2017-12-19 15:43 | PDOC.PN ---
- Subjective Encounter Start Date: 12/19/17 Encounter Start Time: 10:40 Doing well. No complaints. Leg feels ok. No CP. - Objective Vital Signs & Weight: Vital Signs (12 hours) Temp Pulse Resp BP BP BP Pulse Ox 12/19/17 14:38 64 16 112/69 12/19/17 08:36 98.1 F 68 16 92 L 12/19/17 08:32 122/71 12/19/17 07:49 98 F 64 16 122/71 92 L 12/19/17 04:00 98.1 F 68 16 114/68 93 L Weight Weight 260 lb I&O: 12/18/17 12/19/17 12/20/17 06:59 06:59 06:59 Intake Total 1490 Balance 1490 Result Diagrams: 12/17/17 05:10 12/17/17 05:10 Additional Labs: Accuchecks 12/19/17 12/19/17 12/19/17 11:59 06:41 00:32 POC Glucose 142 H 124 H 177 H 12/18/17 12/18/17 20:26 16:58 POC Glucose 202 H 118 H Phys Exam - Physical Examination Constitutional: NAD Morbidly obese. R calf with slightly worsened erythema compared to yesterday. About where it was two days ago. Dx/Plan (1) Stasis dermatitis Code(s): I87.2 - VENOUS INSUFFICIENCY (CHRONIC) (PERIPHERAL) Status: Acute Qualifiers: Laterality: bilateral Qualified Code(s): I87.2 - Venous insufficiency ( chronic) (peripheral) (2) Chest pain Code(s): R07.9 - CHEST PAIN, UNSPECIFIED Status: Resolved Comment: Negative stress test. Normal echo (3) Cellulitis of right leg Code(s): L03.115 - CELLULITIS OF RIGHT LOWER LIMB Status: Resolved Comment: Plan for po keflex for one week and then suppression with Pen VK for six months. - Plan * OK for discharge. Need to go to swing bed in [facility]. Awaiting arrangements through .
[2017-12-19] MEDS: Acetaminophen 325 MG TAB PO PRN (16:21)
[2017-12-19] MEDS: Vancomycin HCl 1.5 GM in Sodium Chloride 0.9% 250 ML 300 ML IVPB SCH (20:53)
[2017-12-20] MEDS: Levothyroxine Sodium 100 MCG TAB PO SCH (05:40)
[2017-12-20] MEDS: Acetaminophen 325 MG TAB PO PRN ×2 (05:41→15:20)
[2017-12-20] MEDS: Glimepiride 1 MG TAB PO SCH (09:54)
[2017-12-20] MEDS: Gabapentin 100 MG CAP PO SCH ×3 (09:54→20:32)
[2017-12-20] MEDS: Multivit, Therapeutic 1 TAB PO SCH (09:54)
[2017-12-20] MEDS: Lisinopril 10 MG TAB PO SCH (09:55)
[2017-12-20] MEDS: Furosemide 80 MG TAB PO SCH ×2 (09:55→10:13)
[2017-12-20] MEDS: Spironolactone 25 MG TAB PO SCH (09:57)
[2017-12-20] MEDS: Polyethylene Glycol 3350 17 GM Packet PO SCH (09:58)
[2017-12-20] MEDS: Enoxaparin Sodium 30 MG/0.3 ML SYRINGE SC SCH (09:58)
--- NOTE | 2017-12-20 13:01 | PDOC.PN ---
- Subjective Encounter Start Date: 12/20/17 Encounter Start Time: 11:00 No complaints. She is concerned that she is not as functional as she would like to be at this juncture. Reports some exacerbation of her long-standing low back pain. - Objective Vital Signs & Weight: Vital Signs (12 hours) Temp Pulse Resp BP BP BP Pulse Ox 12/20/17 11:38 97.8 F 58 L 18 118/73 94 L 12/20/17 10:10 98.5 F 68 16 93/55 L 94 L 12/20/17 09:55 126/72 12/20/17 08:00 98.5 F 68 16 94 L 12/20/17 07:37 97.9 F 62 18 126/72 95 Weight Weight 260 lb Result Diagrams: 12/17/17 05:10 12/17/17 05:10 Additional Labs: Accuchecks 12/20/17 12/20/17 12/19/17 11:37 05:28 19:26 POC Glucose 188 H 136 H 134 H 12/19/17 16:56 POC Glucose 160 H Phys Exam - Physical Examination Constitutional: NAD obese Respiratory: no wheezing, no rales, no rhonchi, clear to auscultation bilateral Cardiovascular: RRR, no significant murmur Gastrointestinal: soft, non-tender, no distention, positive bowel sounds RLE erythema is improved again today. Less peau d'orange and edema. Neurological: non-focal Dx/Plan (1) Cellulitis of right leg Code(s): L03.115 - CELLULITIS OF RIGHT LOWER LIMB Status: Resolved Comment: Stay on Vanc while here. Plan for po keflex for one week and then suppression with Pen VK for six months. (2) Stasis dermatitis Code(s): I87.2 - VENOUS INSUFFICIENCY (CHRONIC) (PERIPHERAL) Status: Acute Qualifiers: Laterality: bilateral Qualified Code(s): I87.2 - Venous insufficiency ( chronic) (peripheral) (3) Chest pain Code(s): R07.9 - CHEST PAIN, UNSPECIFIED Status: Resolved Comment: Negative stress test. Normal echo - Plan * Anticipate transfer to [facility] tomorrow.
[2017-12-20] MEDS: Furosemide 40 MG TAB PO SCH (15:20)
[2017-12-20 21:23] LABS: Vancomycin, Trough 25.9 ug/mL
[2017-12-21] MEDS: Levothyroxine Sodium 100 MCG TAB PO SCH (05:28)
[2017-12-21] MEDS: Gabapentin 100 MG CAP PO SCH ×3 (08:05→21:11)
[2017-12-21] MEDS: Multivit, Therapeutic 1 TAB PO SCH (08:05)
[2017-12-21] MEDS: Glimepiride 1 MG TAB PO SCH (08:05)
[2017-12-21] MEDS: Spironolactone 25 MG TAB PO SCH (08:05)
[2017-12-21] MEDS: Lisinopril 10 MG TAB PO SCH (08:06)
[2017-12-21] MEDS: Enoxaparin Sodium 30 MG/0.3 ML SYRINGE SC SCH (08:06)
[2017-12-21] MEDS: Furosemide 80 MG TAB PO SCH (08:06)
[2017-12-21] MEDS: Polyethylene Glycol 3350 17 GM Packet PO SCH (08:07)
[2017-12-21] MEDS: Acetaminophen 325 MG TAB PO PRN ×2 (10:21→21:14)
[2017-12-21] MEDS: Furosemide 40 MG TAB PO SCH (14:23)
--- NOTE | 2017-12-21 17:05 | PDOC.PN ---
- Subjective Encounter Start Date: 12/21/17 Encounter Start Time: 16:45 Subjective: f/u for RLE cellulitis on Vancomycin. Feels better over but still weak -: and deconditioned. - Objective MAR Reviewed: Yes Vital Signs & Weight: Vital Signs (12 hours) Temp Pulse Resp BP BP Pulse Ox 12/21/17 11:27 98.2 F 65 16 145/85 H 95 12/21/17 08:15 97.6 F 66 18 97 12/21/17 08:06 120/73 12/21/17 07:41 98.6 F 60 16 120/73 97 Weight Weight 260 lb Result Diagrams: 12/17/17 05:10 12/17/17 05:10 Additional Labs: Accuchecks 12/21/17 12/21/17 12/20/17 11:24 05:40 16:15 POC Glucose 158 H 127 H 145 H Radiology Reviewed by me: Yes (2D echo - EF 60-65%, diast dysfn) Phys Exam - Physical Examination Constitutional: NAD HEENT: PERRLA, sclera anicteric, oral pharynx no lesions Neck: no nodes, no JVD, supple, full ROM Respiratory: no wheezing, no rales, no rhonchi, clear to auscultation bilateral S1, S2 Cardiovascular: RRR, no significant murmur, no rub, gallop Gastrointestinal: soft, non-tender, no distention, positive bowel sounds mild erythema of RLE to proximal/medial calf Musculoskeletal: pulses present, edema present Neurological: normal sensation, moves all 4 limbs Psychiatric: normal affect, A&O x 3 Skin: normal turgor, cap refill <2 seconds Dx/Plan (1) Cellulitis, leg Code(s): L03.119 - CELLULITIS OF UNSPECIFIED PART OF LIMB Status: Acute Qualifiers: Laterality: right Qualified Code(s): L03.115 - Cellulitis of right lower limb Comment: Improved with IV Vancomycin, continue Vancomycin, local skin care (2) Stasis dermatitis Code(s): I87.2 - VENOUS INSUFFICIENCY (CHRONIC) (PERIPHERAL) Status: Acute Qualifiers: Laterality: bilateral Qualified Code(s): I87.2 - Venous insufficiency ( chronic) (peripheral) Comment: Local skin care (3) Physical deconditioning Code(s): R53.81 - OTHER MALAISE Status: Chronic Comment: PT for mobilization , awaiting swing bed approval for continuation of PT/OT (4) Hypertension Code(s): I10 - ESSENTIAL (PRIMARY) HYPERTENSION Status: Chronic Qualifiers: Hypertension type: essential hypertension Qualified Code(s): I10 - Essential (primary) hypertension Comment: Continue Lasix, Lisinopril and Spironolactone (5) Hypothyroidism Code(s): E03.9 - HYPOTHYROIDISM, UNSPECIFIED Status: Chronic Comment: Continue Levothyroxine 100mcg daily - Plan continue antibiotics, PT/OT, secondary social studies teacher, out of bed/ambulate Stable currently -: Continue Vancomycin -: PT for mobilization and ambulation -: Awaiting approval for [facility] swing bed -: Likely d/c to swing bed in 24h * .
[2017-12-21 21:16] LABS: Vancomycin, Random 17.3 ug/mL (See Comment)
[2017-12-21] MEDS: Vancomycin HCl 1 GM in Premix Bag 1 BAG IVPB SCH (21:34)
[2017-12-22] MEDS: Levothyroxine Sodium 100 MCG TAB PO SCH (06:21)
[2017-12-22] MEDS: Lisinopril 10 MG TAB PO SCH (08:47)
[2017-12-22] MEDS: Glimepiride 1 MG TAB PO SCH (08:47)
[2017-12-22] MEDS: Multivit, Therapeutic 1 TAB PO SCH (08:47)
[2017-12-22] MEDS: Gabapentin 100 MG CAP PO SCH ×3 (08:47→20:25)
[2017-12-22] MEDS: Spironolactone 25 MG TAB PO SCH (08:48)
[2017-12-22] MEDS: Furosemide 80 MG TAB PO SCH (08:48)
[2017-12-22] MEDS: Enoxaparin Sodium 30 MG/0.3 ML SYRINGE SC SCH (08:48)
[2017-12-22] MEDS: Polyethylene Glycol 3350 17 GM Packet PO SCH (08:51)
[2017-12-22] MEDS: Acetaminophen 325 MG TAB PO PRN ×2 (12:50→20:29)
[2017-12-22] MEDS: Furosemide 40 MG TAB PO SCH (15:07)
--- NOTE | 2017-12-22 16:29 | PDOC.PN ---
- Subjective Encounter Start Date: 12/22/17 Encounter Start Time: 16:15 Subjective: f/u RLE cellulitis on Vancomycin. Some mild, productive coughing. No fever. -: Ambulated with PT using RW. Appetite improved. - Objective MAR Reviewed: Yes Vital Signs & Weight: Vital Signs (12 hours) Temp Pulse Resp BP BP Pulse Ox 12/22/17 15:57 97.7 F 63 18 105/68 92 L 12/22/17 11:31 97.5 F L 62 16 105/69 97 12/22/17 08:47 133/73 12/22/17 08:00 97.7 F 59 L 16 96 12/22/17 07:17 97.7 F 59 L 16 133/71 94 L Weight Weight 260 lb I&O: 12/21/17 12/22/17 12/23/17 06:59 06:59 06:59 Intake Total 800 Balance 800 Result Diagrams: 12/17/17 05:10 12/17/17 05:10 Additional Labs: Accuchecks 12/22/17 12/22/17 12/21/17 11:31 05:17 19:31 POC Glucose 135 H 127 H 199 H 12/21/17 16:50 POC Glucose 152 H Phys Exam - Physical Examination Constitutional: NAD alert, responsive HEENT: PERRLA, sclera anicteric, oral pharynx no lesions Neck: no nodes, no JVD, supple, full ROM occasional rhonchi Respiratory: clear to auscultation bilateral Cardiovascular: RRR, no significant murmur, no rub, gallop Gastrointestinal: soft, non-tender, no distention, positive bowel sounds minimal LE edema Musculoskeletal: pulses present Neurological: moves all 4 limbs Psychiatric: normal affect, A&O x 3 Deviation from normal: minimal pink discoloration to RLE Skin: normal turgor, cap refill <2 seconds Dx/Plan (1) Cellulitis, leg Code(s): L03.119 - CELLULITIS OF UNSPECIFIED PART OF LIMB Status: Acute Qualifiers: Laterality: right Qualified Code(s): L03.115 - Cellulitis of right lower limb Comment: Improved with IV Vancomycin, continue Vancomycin, local skin care (2) Stasis dermatitis Code(s): I87.2 - VENOUS INSUFFICIENCY (CHRONIC) (PERIPHERAL) Status: Acute Qualifiers: Laterality: bilateral Qualified Code(s): I87.2 - Venous insufficiency ( chronic) (peripheral) Comment: Local skin care (3) Physical deconditioning Code(s): R53.81 - OTHER MALAISE Status: Chronic Comment: PT for mobilization , awaiting swing bed approval for continuation of PT/OT (4) Hypertension Code(s): I10 - ESSENTIAL (PRIMARY) HYPERTENSION Status: Chronic Qualifiers: Hypertension type: essential hypertension Qualified Code(s): I10 - Essential (primary) hypertension Comment: Continue Lasix, Lisinopril and Spironolactone (5) Hypothyroidism Code(s): E03.9 - HYPOTHYROIDISM, UNSPECIFIED Status: Chronic Comment: Continue Levothyroxine 100mcg daily - Plan plan discussed w/ family, continue antibiotics, PT/OT, social work program coordinator, out of bed/ambulate Stable overall -: Continue Vancomycin -: OOB/ambulate with PT -: Continue Levothyroxine -: Likely d/c to [place] [facility] in am * .
[2017-12-22] MEDS: Vancomycin HCl 1 GM in Premix Bag 1 BAG IVPB SCH (20:25)
[2017-12-23] MEDS: Levothyroxine Sodium 100 MCG TAB PO SCH (04:59)
[2017-12-23 08:23] VITALS: BP 143/83; TEMP 97.9
[2017-12-23] MEDS: Spironolactone 25 MG TAB PO SCH (09:07)
[2017-12-23] MEDS: Gabapentin 100 MG CAP PO SCH ×2 (09:07→14:36)
[2017-12-23] MEDS: Multivit, Therapeutic 1 TAB PO SCH (09:08)
[2017-12-23] MEDS: Furosemide 80 MG TAB PO SCH (09:08)
[2017-12-23] MEDS: Lisinopril 10 MG TAB PO SCH (09:08)
[2017-12-23] MEDS: Enoxaparin Sodium 30 MG/0.3 ML SYRINGE SC SCH (09:09)
[2017-12-23] MEDS: Glimepiride 1 MG TAB PO SCH (09:10)
[2017-12-23] MEDS: Polyethylene Glycol 3350 17 GM Packet PO SCH (09:11)
--- NOTE | 2017-12-23 13:35 | DIS ---
DATE OF ADMISSION: 12/16/2017 DATE OF DISCHARGE: 12/23/2017 DISCHARGE DIAGNOSES: 1. Right lower extremity cellulitis, improved. 2. Chronic venous stasis dermatitis. 3. Physical deconditioning. 4. Hypertension, stable. 5. Hypothyroidism. 6. Diastolic dysfunction with preserved ejection fraction of 60%-65%. CONSULTATIONS: Dr. Swain with Infectious Disease service. PERTINENT LAB AND X-RAY FINDINGS: Creatinine ranged between 1.14-1.32, estimated GFR ranged between 39-46, troponin I negative x4. CBC showed a white blood cell count of 4.9, hemoglobin 10, hematocrit 30, platelet count 161,000. Abdominal ultrasound dated 12/16/2017 showed cholelithiasis without obs truction. Fatty liver changes noted. Cardiolite stress test dated 12/17/2017 showed no evidence of reversible or fixed ischemia with calculated ejection fraction of 79%. A 2D transthoracic echocardio gram dated 12/17/2017 showed ejection fraction of 60%-65%. Grade I/III diastolic dysfunction. Aorti c valve sclerosis noted. HOSPITAL COURSE: The patient was initially admitted to the telemetry unit after presenting with ches t pain. The patient underwent general cardiac workup including Cardiolite stress testing showing no evidence of reversible or fixed ischemia. The patient was noted with right lower extremity edema and concerned for cellulitis and placed on IV antibiotic therapy with vancomycin. The patient with long standing chronic venous stasis changes, treated with local skin care and IV antibiotic therapy with o verall improving cellulitis. The patient received general pulmonary supportive care and overall kike ined clinically stable. The patient was transferred to the medical floor where she continued on IV a ntibiotic therapy. Due to the patient's overall comorbid status and deconditioning, the patient was deemed an appropriate candidate for ongoing skilled care at [facility]. The patient has been approved and we will transfer on 12/23/2017. I have examined the patient at the time of dischar ge and discussed followup instructions, at which point the patient verbalizes understanding and agree ment. DISCHARGE MEDICATIONS: 1. Lasix 80 mg p.o. q.a.m. and 40 mg p.o. at 1400 p.m. 2. Neurontin 200 mg p.o. t.i.d. 3. Amaryl 4 mg p.o. daily. 4. Lisinopril 10 mg p.o. daily. 5. Multivitamin 1 tab p.o. daily. 6. MiraLax 17 g p.o. daily. 7. Spironolactone 12.5 mg p.o. daily. 8. Kenalog 1 application topically t.i.d. p.r.n. 9. Augmentin 500 mg 1 tab p.o. b.i.d. Stop on 12/28/2017. 10. Levothyroxine 100 mcg p.o. daily. 11. Mycostatin powder 1 g topically b.i.d. p.r.n. FOLLOWUP: The patient to follow up with her primary care provider, Dr. Osorio. CONDITION ON DISCHARGE: Fair. ACTIVITY: Ad farhan. Rolling walker for ambulation. DIET: Heart healthy. CODE STATUS: Full. DISPOSITION: Discharged to [facility], 12/23/2017. Total time preparing and coordinating discharge is 33 minutes.
[2017-12-23] MEDS: Furosemide 40 MG TAB PO SCH (14:37)
--- NOTE | 2017-12-26 16:56 | EKG ---
Test Reason : CHEST PN Blood Pressure : / mmHG Vent. Rate : 067 BPM Atrial Rate : 067 BPM P-R Int : 208 ms QRS Dur : 078 ms QT Int : 404 ms P-R-T Axes : 084 072 072 degrees QTc Int : 426 ms Normal sinus rhythm Normal ECG Confirmed by KAI LARA DO ([id number]), multimedia editor PHILOMENA MUNGUIA ([id number] on 12/26/2017 4:56:21 PM Referred By: Confirmed By:KAI LARA DO
== END 2017-12-23 15:06 | disposition swing bed (61) | DRG 603 ==
LOC: ERS 15:11 → OBSVTOIN 17:36 → 2SW 17:36 → T4-A 12-17 20:15
PROVIDERS: ADMIT Internal Medicine; ATTEND Internal Medicine
DX: L03.115 Cellulitis of right lower limb (principal); Z68.41 Body mass index [BMI] 40.0-44.9, adult; I13.0 Hypertensive heart and chronic kidney disease with heart failure and stage 1 through stage 4 chronic kidney disease, or unspecified chronic kidney disease; I50.30 Unspecified diastolic (congestive) heart failure; I87.8 Other specified disorders of veins; E03.9 Hypothyroidism, unspecified; E66.01 Morbid (severe) obesity due to excess calories; E11.22 Type 2 diabetes mellitus with diabetic chronic kidney disease; N18.9 Chronic kidney disease, unspecified; L30.4 Erythema intertrigo; Z98.1 Arthrodesis status; Z88.2 Allergy status to sulfonamides; G89.29 Other chronic pain; M54.5 Low back pain; Z82.3 Family history of stroke; Z82.49 Family history of ischemic heart disease and other diseases of the circulatory system; M62.81 Muscle weakness (generalized)
CPT/HCPCS: 36415; 36416; 76705; 78452; 80048; 80202; 82553; 84484; 85025; 93005; 93017; 93306; 96365; A9500; G8978-GP-CM; G8979-GP-CK; J0153; J1650; J3370; J3490; J7050

== ENCOUNTER 2018-02-14 15:27 | Emergency (ER) | payer MEDICARE ==
[2018-02-14 16:55] LABS: #Basophils 0.1 thou/uL (0.0-0.2); #Eosinphils 0.3 thou/uL (0.0-0.7); #Lymphocytes 1.4 thou/uL (1.20-3.40); #Monocytes 0.4 thou/uL (0.11-0.59); #Neutrophils 2.8 thou/uL (1.40-6.50); %Basophils 1.4 % (0.0-1.0); %Eosinophils 6.2 % (0.0-10.0); %Lymphocytes 28.4 % (21.0-51.0); %Monocytes 8.1 % (0.0-10.0); Hemoglobin 10.3 g/dL (12.0-16.0); Mean Corpuscular HGB CONC 32.5 g/dL (32.0-36.0); Mean Corpuscular Hemoglobin 29.2 pg (27.0-31.0); Mean Corpuscular Volume 89.9 fL (78.0-98.0); Mean Platelet Volume 7.9 fL (7.4-10.4); Platelet Count 183 thou/uL (130-400); RBC Distribution Width 11.5 % (11.5-14.5); Red Blood Cell (RBC) Count 3.51 mill/uL (4.20-5.40)
[2018-02-14 17:11] LABS: Anion Gap 14 mmol/L (10-20); BUN (Urea Nitrogen) 23 mg/dL (9.8-20.1); Calc. Creatinine Clearance 0 mL/min (70-130); Calcium 8.9 mg/dL (7.8-10.44); Carbon Dioxide 28 mmol/L (23-31); Chloride 101 mmol/L (98-107); Estimated GFR-MDRD 48; Glucose 159 mg/dL (83-110); Sodium 139 mmol/L (136-145)
== END 2018-02-14 18:09 | disposition home or self-care (01) ==
LOC: ERS 15:27
DX: I87.8 Other specified disorders of veins (principal); L03.116 Cellulitis of left lower limb; E11.9 Type 2 diabetes mellitus without complications; E03.9 Hypothyroidism, unspecified; Z86.73 Personal history of transient ischemic attack (TIA), and cerebral infarction without residual deficits; I11.0 Hypertensive heart disease with heart failure; I50.9 Heart failure, unspecified; D64.9 Anemia, unspecified; Z79.899 Other long term (current) drug therapy
CPT/HCPCS: 36415; 80048; 85025; 87040; 99285

== ENCOUNTER 2018-02-16 12:12 | Inpatient (IN) | payer MEDICARE ==
[2018-02-16 13:17] LABS: #Basophils 0.1 thou/uL (0.0-0.2); #Eosinphils 0.2 thou/uL (0.0-0.7); #Lymphocytes 1.4 thou/uL (1.20-3.40); #Monocytes 0.5 thou/uL (0.11-0.59); #Neutrophils 3.3 thou/uL (1.40-6.50); %Basophils 0.9 % (0.0-1.0); %Eosinophils 4.5 % (0.0-10.0); %Lymphocytes 25.4 % (21.0-51.0); %Monocytes 8.6 % (0.0-10.0); %Neutrophils 60.6 % (42.0-75.0); Hemoglobin 9.5 g/dL (12.0-16.0); Mean Corpuscular HGB CONC 31.8 g/dL (32.0-36.0); Mean Corpuscular Hemoglobin 28.2 pg (27.0-31.0); Mean Corpuscular Volume 88.8 fL (78.0-98.0); Mean Platelet Volume 7.8 fL (7.4-10.4); Platelet Count 157 thou/uL (130-400); RBC Distribution Width 11.6 % (11.5-14.5); Red Blood Cell (RBC) Count 3.35 mill/uL (4.20-5.40); White Blood Cell (WBC) Count 5.4 thou/uL (4.8-10.8)
[2018-02-16 13:49] LABS: ALT (SGPT) 14 U/L (8-55); AST (SGOT) 16 U/L (5-34); Albumin 3.5 g/dL (3.4-4.8); Alkaline Phosphatase 73 U/L (40-150); Anion Gap 12 mmol/L (10-20); BUN (Urea Nitrogen) 24 mg/dL (9.8-20.1); Bilirubin, Total 0.4 mg/dL (0.2-1.2); CK (CPK) 74 U/L (29-168); Calc. Creatinine Clearance 0 mL/min (70-130); Calcium 8.3 mg/dL (7.8-10.44); Carbon Dioxide 26 mmol/L (23-31); Chloride 104 mmol/L (98-107); Estimated GFR-MDRD 50; Globulin 2.7 g/dL (2.4-3.5); Glucose 162 mg/dL (83-110); Protein, Total 6.2 g/dL (6.0-8.3); Sodium 138 mmol/L (136-145)
[2018-02-16 15:01] LABS: Bilirubin Negative (Negative); Blood, Urine Negative (Negative); Clarity CLOUDY (Clear); Glucose, Urine (Dipstick) Negative (Negative); Leukocyte Large (Negative); Nitrite Positive (Negative); Protein, Urine (Dipstick) Negative (Neg-Trace); Specific Gravity, Urine 1.011 (1.002-1.036); Urobilinogen 0.2 mg/dL (0.2-1.0)
[2018-02-16 15:03] LABS: Bacteria/HPF 1+ HPF (None Seen); Hyaline Casts/LPF 0-3 HYALINE CAST LPF (0-3 Hyaline); Pathc Cast-AUWi Flag 0.43 (0-2.49); RBC/HPF None Seen HPF (0-3); Squamous Epithelial None Seen HPF (0-3); WBC/HPF 21-50 HPF (0-3)
[2018-02-16] MEDS ORDERED: Piperacillin/Tazobactam 4.5 GM VIAL ONE (15:15)
[2018-02-16] MEDS ORDERED: Fentanyl 100 MCG/2 ML VIAL ONE (16:38)
[2018-02-16] MEDS ORDERED: Ondansetron ODT 4 MG TAB SL PRN (17:59)
[2018-02-16] MEDS ORDERED: Acetaminophen 325 MG TAB PO PRN (17:59)
[2018-02-16] MEDS ORDERED: Sodium Chloride 0.9% 1,000 ML IV SCH (17:59)
[2018-02-16] MEDS ORDERED: Ondansetron PF 4 MG/2 ML Vial IVP PRN ×2 (17:59→18:09)
[2018-02-16] MEDS ORDERED: Ondansetron ODT 4 MG TAB PO PRN (18:09)
[2018-02-16] MEDS ORDERED: Insulin Regular 300 UNITS/3 ML VIAL SC PRN ×2 (18:16)
[2018-02-16] MEDS ORDERED: Dextrose 50% Abboject 50 ML SYRINGE SLOW IVP PRN (18:16)
[2018-02-16] MEDS ORDERED: Dextrose 5% in Water 1,000 ML IV PRN (18:16)
[2018-02-16 18:17] VITALS: BMI 45.5
--- NOTE | 2018-02-16 18:39 | ULT ---
ULTRASOUND LOWER EXTREMITY VENOUS BILATERAL: 02/16/18 HISTORY: Lower extremity edema, pain, swelling. COMPARISON: Ultrasound right 08/12/17. FINDINGS: Real time giles scale, color doppler and spectral analysis of the bilateral lower extremity venous sys tem was performed. The common femoral, femoral, proximal portions of the greater saphenous and deep f emoral veins as well as popliteal and posterior tibial veins were attempted to be interrogated. There is nonvisualization of the right posterior tibial and popliteal veins. The remainder of the vei ns have normal flow, augmentation and compression. IMPRESSION: Limited exam. No deep venous thrombosis. POS: [facility]
--- NOTE | 2018-02-16 18:41 | HP ---
DATE OF SERVICE: 02/16/2018 PRIMARY CARE PHYSICIAN: Dr. Osorio. CHIEF COMPLAINT: Worsening erythema with pain in bilateral lower extremities. HISTORY OF PRESENT ILLNESS: The patient is a 77-year-old female with chronic venous stasis, hyperten rocío, diabetes mellitus type 2 and chronic diastolic heart failure, who presented to the emergency ro with above complaints. The patient was discharged from this facility 2 months ago with a diagnosis of right lower extremity cellulitis. She was discharged on Augmentin. She completed Augmentin at intermediate. She was t hen started on Pen-Vee K prophylaxis per Infectious Disease recommendation for 6 months. Three weeks ago, she was discharged to assisted living. Over the last 3-4 days, the patient noticed gradual worsening erythema along with swelling and pain i n bilateral lower extremities. She also felt somewhat feverish; however, denies any chills. She den ies recent injury. No recent immobilization or travel reported. She is compliant with all of her me dications including Pen-Vee K. She was seen in the emergency room 2 days ago and was started on Kefl ex without much improvement. Her symptoms worsened along with some serosanguineous draining from the wound. For this reason, she presented to the emergency room. In the emergency room, her initial vital signs showed temperature 97.8, respirations 20, pulse 70, bl ood pressure 157/55 with O2 saturation 96% on room air. CRP was elevated at 2.39. Bilateral lower e xtremity Doppler has been done, report is pending at this time. She received vancomycin, Zosyn and f entanyl in the emergency room. The pain was mainly in the right lower extremity and was 8/10. PAST MEDICAL HISTORY: 1. Diabetes mellitus type 2. 2. Deconditioning. 3. Recurrent cellulitis in lower extremity due to chronic stasis. 4. Cervical myelopathy with allodynia/hyperalgesia. 5. Diabetes mellitus type 2. 6. Hypertension. 7. Hypothyroidism. 8. Degenerative joint disease. 9. Severe cervical spinal stenosis complicated by myelopathy. 10. Wheelchair dependent. 11. Chronic low back pain. 12. Morbid obesity. 13. Anemia of chronic disease. 14. Chronic diastolic heart failure. 15. Asthmatic bronchitis. 16. Candidiasis. PAST SURGICAL HISTORY: 1. Multiple back surgeries. 2. Hysterectomy. 3. Decompression of cervical spinal stenosis. 4. Tonsillectomy. ALLERGIES: MORPHINE, SULFA. FAMILY HISTORY: Father with aneurysm. Mother with heart disease and stroke. SOCIAL HISTORY: The patient is , lives in an assisted living. Decision maker is daughter, Sylwia rothman. She will be full code. CURRENT HOME MEDICATIONS: We will try to obtain accurate list of medication from the nursing facilit y. REVIEW OF SYSTEMS: The following complete review of systems was negative, unless otherwise mentioned in the HPI or below: Constitutional: Weight loss or gain, ability to conduct usual activities. Sk in: Rash, itching. Eyes: Double vision, pain. ENT/Mouth: Nose bleeding, neck stiffness, pain, te nderness. Cardiovascular: Palpitations, dyspnea on exertion, orthopnea. Respiratory: Shortness of breath, wheezing, cough, hemoptysis, fever or night sweats. Gastrointestinal: Poor appetite, abdom inal pain, heartburn, nausea, vomiting, constipation, or diarrhea. Genitourinary: Urgency, frequenc y, dysuria, nocturia. Musculoskeletal: Pain, swelling. Neurologic/Psychiatric: Anxiety, depressio n. Allergy/Immunologic: Skin rash, bleeding tendency. PHYSICAL EXAMINATION: VITAL SIGNS: As discussed above. GENERAL: A 77-year-old female in mild distress due to bilateral lower extremity pain. HEENT: Head atraumatic, normocephalic. Sclerae are anicteric. Moist mucous membrane. No oral lesi on. NECK: Supple, no JVD, no carotid bruit. LUNGS: Showed diminished air entry at bilateral bases. No wheezing or rhonchi. HEART: S1, S2 present. Regular rate and rhythm. No murmur, rubs or gallops. ABDOMEN: Soft, obese. Bowel sounds present. EXTREMITIES: There is significant erythema in bilateral lower extremities with hyperalgesia. There is peau d'orange appearance mainly in the right posterior calf. SKIN: As discussed above. LYMPH NODES: No palpable lymph nodes in the neck. PERIPHERAL VASCULAR: Radial pulses palpable bilaterally. MUSCULOSKELETAL: No joint swelling or tenderness. LABORATORY FINDINGS: CBC showed WBC 5.4 with hemoglobin 9.5, hematocrit 29.8, platelets 157,000. Chemistries showed sodium 138, potassium 4, chloride 104, bicarbonate 26, BUN 24, creatinine 1.06, CR P 2.39. Urinalysis showed 21-50 WBCs with 1+ bacteria. Blood cultures have been sent. IMAGING: Bilateral lower extremity Doppler has been done, report pending at this time. IMPRESSION: 1. Bilateral lower extremity cellulitis. Please note that the patient failed outpatient treatment. 2. Severe cervical spinal stenosis complicated by myelopathy and causing hyperalgesia in bilateral l ower extremities. 3. Physical deconditioning. 4. Diabetes mellitus type 2. 5. Hypertension. 6. Hypothyroidism. 7. Severe venous insufficiency of lower extremities. 8. Morbid obesity. 9. Chronic diastolic heart failure, compensated. 10. Asthmatic bronchitis. 11. Chronic pain syndrome. 12. SULFA allergy. 13. Urinary tract infection. PLAN: The patient will be monitored on the medical floor. We will continue vancomycin. We will sta rt her on ceftriaxone. Consult Infectious Disease, Dr. Swain. We will repeat labs on a daily basis. We will resume home medications once confirmed. Physical therapy, occupational therapy consultatio n. Vital signs q.4. Plan of care was discussed with the patient. She stated understanding.
[2018-02-16] MEDS: Gabapentin 100 MG CAP PO SCH (20:42)
[2018-02-16] MEDS: Nystatin Powder 15 GM BOT TOP SCH (20:42)
[2018-02-16] MEDS ORDERED: Piperacillin/Tazobactam 4.5 GM in Sodium Chloride 0.9% 100 ML IVPB SCH (21:00)
[2018-02-16] MEDS: Acetaminophen 325 MG TAB PO PRN (23:52)
[2018-02-17 04:36] LABS: Anion Gap 12 mmol/L (10-20); BUN (Urea Nitrogen) 23 mg/dL (9.8-20.1); Calc. Creatinine Clearance 95 mL/min (70-130); Calcium 8.4 mg/dL (7.8-10.44); Carbon Dioxide 29 mmol/L (23-31); Chloride 105 mmol/L (98-107); Estimated GFR-MDRD 52; Glucose 143 mg/dL (83-110); Magnesium 2.2 mg/dL (1.6-2.6); Sodium 142 mmol/L (136-145)
[2018-02-17] MEDS: Vancomycin HCl 1 GM in Premix Bag 1 BAG IVPB SCH ×2 (05:00→15:07)
[2018-02-17] MEDS: Glimepiride 1 MG TAB PO SCH (07:52)
[2018-02-17] MEDS: Saccharomyces boulardii 250 MG CAP PO SCH (07:53)
[2018-02-17] MEDS: Multivit, Therapeutic 1 TAB PO SCH (07:53)
[2018-02-17] MEDS: Gabapentin 100 MG CAP PO SCH ×3 (07:53→20:55)
[2018-02-17] MEDS: Furosemide 80 MG TAB PO SCH (07:53)
[2018-02-17] MEDS: Famotidine 20 MG TAB PO SCH (07:53)
[2018-02-17] MEDS: cefTRIAXone\\ROCEPHIN 2 GM in Sodium Chloride 0.9% 100 ML IVPB SCH (07:53)
[2018-02-17] MEDS: Enoxaparin Sodium 40 MG/0.4 ML SYRINGE SC SCH (07:54)
[2018-02-17] MEDS: Nystatin Powder 15 GM BOT TOP SCH ×2 (07:58→20:57)
[2018-02-17] MEDS ORDERED: Polyethylene Glycol 3350 17 GM Packet PO SCH (09:00)
[2018-02-17] MEDS: Acetaminophen 325 MG TAB PO PRN (09:17)
[2018-02-17] MEDS ORDERED: Fentanyl 100 MCG/2 ML VIAL SLOW IVP PRN (11:28)
--- NOTE | 2018-02-17 19:30 | CON ---
DATE OF CONSULTATION: 02/17/2018 REASON FOR CONSULTATION: Possible cellulitis. HISTORY OF PRESENT ILLNESS: A 77-year-old whom I had seen recently who has a history spine issues wi th chronic low back pain, fusion surgery, C-spine injury quadriparesis with improvement as well as ty pe 2 diabetes with chronic venous stasis. She was admitted with possible cellulitis in December. At t hat time, we felt that she had hyperalgesia or allodynia following spinal cord issues, but she also h as this changes of waxing and waning of this lower extremity pain. We decided to treat her at least for a period of time with antimicrobials to see what the response would be and she did not have a kamar ar-cut response. Now, she comes back with what she describes as worsening pain in lower extremities for the past 5-6 days. She has erythema as well in the lower extremities. She had been on Pen-Vee K prophylaxis for possible cellulitis prophylaxis and I think she then noticed a gradual worsening of the erythema with swelling and pain in the lower extremities. No headaches, visual symptoms, sore th roat, odynophagia or dysphagia. No neurological function changes. No cough or sputum production. N o chest pain, no abdominal pain or diarrhea. No genitourinary symptoms. Initial temperature 97.8, r espiratory rate 20, pulse 70 and blood pressure 150/55. PAST MEDICAL HISTORY: Type 2 diabetes, spinal stenosis, multiple spinal procedures with paraparesis/ quadriparesis, possible allodynia/hyperalgesia associated with spinal cord problems, type 2 diabetes, hypertension, stasis dermatitis with possible cellulitis, wheelchair dependency, obesity, asthma. PAST SURGICAL HISTORY: As above plus hysterectomy and tonsillectomy. ALLERGIES: MORPHINE and SULFA DRUGS. FAMILY HISTORY: Noncontributory. SOCIAL HISTORY: Lives in assisted living. She spends most of the day in a recliner and she does not wear compression stockings because she does not have anybody to assist her with putting them on. CURRENT MEDICATIONS: She is receiving ceftriaxone, enoxaparin, famotidine, glucagon, insulin, Synthr oid, ondansetron, vancomycin. PHYSICAL EXAMINATION: VITAL SIGNS: Essentially normal. O2 sats were 98% down to 93%. GENERAL: She is awake, oriented. EXTREMITIES: Shows circumferential erythema with a very symmetric distribution of right and left leg extending from area right below the knee all the way to the ankle, right at the foot transition both sides. She has a little bit of abrasion on the lateral aspect of the left leg. She has no lymphade nopathy. HEENT: Noncontributory. NECK: Supple. LUNGS: Symmetric clear breath sounds. HEART: S1, S2, regular rate. ABDOMEN: Soft, not distended or tender. She is voiding at the bedside commode. LABORATORY DATA AND IMAGING DATA: White cell count 5.4, hemoglobin 9.5, normal differential. Sodium 138, creatinine 1.06 with normal liver profile, CRP 2.39. Urinalysis, 21-50 wbc's. Microbiology wi pending blood cultures thus far negative and a venogram done this time with no evidence of deep ve in thrombosis. This was a limited exam. Last echocardiogram from December this year with estimated EF of 60%, some diastolic dysfunction. The valves are okay. ASSESSMENT: 1. 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 2. Chronic venous insufficiency. 3. Possible recurrent cellulitis. 4. Hyperalgesia/allodynia. DISCUSSION: The clinical presentation would be consistent with plain venous stasis dermatitis with t he associated hyperalgesia. It is hard to completely rule out cellulitis, so I think it is okay to c ontinue Rocephin for a few more days and then transition to oral antimicrobials. I have asked the nu rse to try to place MARCOS hose in the right or the left lower extremity to see what the results would b e from a little bit of compression. I think what she probably needs is compression stockings to be w orn on a daily basis and somebody will have to figure out how to make it feasible for her to have kennedy t beneficial intervention for her venous stasis which probably would decrease the frequency of those complications. I am not totally convinced that she had truly has an infectious cellulitis at this po int in time.
--- NOTE | 2018-02-17 23:09 | PDOC.PN ---
- Subjective Encounter Start Date: 02/17/18 Encounter Start Time: 13:00 - Objective Resuscitation Status: Resuscitation Status FULL:Full Resuscitation MAR Reviewed: Yes Vital Signs & Weight: Vital Signs (12 hours) Temp Pulse Resp BP BP Pulse Ox 02/17/18 20:00 98.2 F 71 20 114/66 92 L 02/17/18 16:30 97.9 F 74 18 118/71 90 L 02/17/18 11:35 98.2 F 72 18 131/77 93 L Weight Admit Weight 290 lb 11.224 oz Weight 290 lb 11.224 oz I&O: 02/16/18 02/17/18 02/18/18 06:59 06:59 06:59 Intake Total 680 1000 Balance 680 1000 Result Diagrams: 02/16/18 13:08 02/17/18 03:19 Additional Labs: Accuchecks 02/17/18 02/17/18 02/17/18 20:08 16:32 11:33 POC Glucose 154 H 135 H 198 H 02/17/18 05:04 POC Glucose 146 H Radiology Reviewed by me: No (Doppler - Neg) Phys Exam - Physical Examination Constitutional: NAD Respiratory: no wheezing, no rhonchi Cardiovascular: RRR, no rub Gastrointestinal: soft, non-tender, positive bowel sounds Musculoskeletal: edema present Neurological: moves all 4 limbs Dx/Plan - Plan DVT proph w/lovenox IMPRESSION: 1. Bilateral lower extremity cellulitis. Please note that the patient failed outpatient treatment. 2. Severe cervical spinal stenosis complicated by myelopathy and causing hyperalgesia in bilateral lower extremities. 3. Urinary tract infection. 4. Diabetes mellitus type 2. 5. Hypertension. 6. Hypothyroidism. 7. Severe venous insufficiency of lower extremities. 8. Morbid obesity. 9. Chronic diastolic heart failure, compensated. 10. Asthmatic bronchitis. 11. Chronic pain syndrome. 12. SULFA allergy. 13. Physical deconditioning. PLAN: Con Rocephin DC Vancomycin Increase Gabapentin dose Cont sliding scale Cont other meds as below Microbiology 02/16/18 14:44 Urine clean catch Urine Culture - Preliminary 02/16/18 14:15 Venous blood - Left Hand Blood Culture - Preliminary Specimen has been received and culture in progress. No Growth to date. 02/16/18 14:10 Venous blood - Left Arm Blood Culture - Preliminary Specimen has been received and culture in progress. No Growth to date. Review of Systems - Review of Systems Respiratory: negative: Cough, Dry, Shortness of Breath, Hemoptysis, SOB with Excertion, Pleuritic Pain, Sputum, Wheezing Cardiovascular: negative: chest pain, palpitations, orthopnea, paroxysmal nocturnal dyspnea, edema, light headedness, other - Medications/Allergies Allergies/Adverse Reactions: Allergies Allergy/AdvReac Type Severity Reaction Status Date / Time morphine Allergy Verified 02/16/18 18:20 Sulfa (Sulfonamide Allergy Verified 02/16/18 18:20 Antibiotics) sulfamethoxazole Allergy Verified 02/16/18 18:20 [From Bactrim] trimethoprim [From Bactrim] Allergy Verified 02/16/18 18:20 Medications: Current Medications Acetaminophen (Tylenol) 650 mg PO Q4H PRN PRN Reason: Headache/Fever/Mild Pain (1-3) Last Admin: 02/17/18 09:17 Dose: 650 mg Dextrose/Water (Dextrose 50%) 25 gm SLOW IVP PRN PRN PRN Reason: Hypoglycemia Enoxaparin Sodium (Lovenox) 40 mg SC 0900 [facility] Last Admin: 02/17/18 07:54 Dose: 40 mg Famotidine (Pepcid) 20 mg PO DAILY [facility] Last Admin: 02/17/18 07:53 Dose: 20 mg Fentanyl (Sublimaze) 25 mcg SLOW IVP Q6H PRN PRN Reason: Severe Pain (7-10) Last Admin: 02/17/18 11:55 Dose: 25 mcg Furosemide (Lasix) 80 mg PO DAILY-[facility] Last Admin: 02/17/18 07:53 Dose: 80 mg Gabapentin (Neurontin) 200 mg PO TID [facility] Last Admin: 02/17/18 20:55 Dose: 200 mg Glimepiride (Amaryl) 1 mg PO QAM-[facility] Last Admin: 02/17/18 07:52 Dose: 1 mg Glucagon (Glucagon) 1 mg IM PRN PRN PRN Reason: Hypoglycemia Ceftriaxone Sodium 2 gm/ (Sodium Chloride) 100 mls @ 200 mls/hr IVPB DAILY [facility] Last Admin: 02/17/18 07:53 Dose: 100 mls Dextrose/Water (D5w) 1,000 mls @ 0 mls/hr IV .Q0M PRN PRN Reason: Hypoglycemia Insulin Human Regular (Humulin R) 0 units SC .MILD SLIDING SCALE PRN PRN Reason: Mild Correctional Scale Last Admin: 02/17/18 11:56 Dose: 2 unit Insulin Human Regular (Humulin R) 0 units SC .BEDTIME SLIDING SC PRN PRN Reason: Bedtime Correctional Scale Levothyroxine Sodium (Synthroid) 100 mcg PO 0600 [facility] Multivitamins (Theragran) 1 tab PO DAILY [facility] Last Admin: 02/17/18 07:53 Dose: 1 tab Nystatin (Mycostatin Powder) 0 gm TOP BID [facility] Last Admin: 02/17/18 20:57 Dose: 1 applic Ondansetron HCl (Zofran Odt) 4 mg PO Q6H PRN PRN Reason: Nausea/Vomiting Ondansetron HCl (Zofran) 4 mg IVP Q6H PRN PRN Reason: Nausea/Vomiting Polyethylene Glycol (Miralax) 17 gm PO DAILY [facility] Saccharomyces Boulardii (Florastor) 250 mg PO DAILY [facility] Last Admin: 02/17/18 07:53 Dose: 250 mg
[2018-02-18] MEDS: Levothyroxine Sodium 100 MCG TAB PO SCH (06:10)
[2018-02-18] MEDS: Gabapentin 100 MG CAP PO SCH ×3 (08:28→20:37)
[2018-02-18] MEDS: Saccharomyces boulardii 250 MG CAP PO SCH (08:28)
[2018-02-18] MEDS: Furosemide 80 MG TAB PO SCH (08:28)
[2018-02-18] MEDS: Glimepiride 1 MG TAB PO SCH (08:28)
[2018-02-18] MEDS: cefTRIAXone\\ROCEPHIN 2 GM in Sodium Chloride 0.9% 100 ML IVPB SCH (08:29)
[2018-02-18] MEDS: Famotidine 20 MG TAB PO SCH (08:29)
[2018-02-18] MEDS: Multivit, Therapeutic 1 TAB PO SCH (08:29)
[2018-02-18] MEDS: Enoxaparin Sodium 40 MG/0.4 ML SYRINGE SC SCH (08:29)
[2018-02-18] MEDS: Polyethylene Glycol 3350 17 GM Packet PO SCH (08:29)
[2018-02-18] MEDS: Nystatin Powder 15 GM BOT TOP SCH ×2 (11:36→20:38)
[2018-02-18] MEDS: Acetaminophen 325 MG TAB PO PRN ×2 (14:32→20:45)
--- NOTE | 2018-02-18 16:36 | PDOC.PN ---
- Subjective Encounter Start Date: 02/18/18 Encounter Start Time: 13:00 Patient seen and examined for Cellulitis. Pain slightly better. No new complaints. No overnight events - Objective Resuscitation Status: Resuscitation Status FULL:Full Resuscitation MAR Reviewed: Yes Vital Signs & Weight: Vital Signs (12 hours) Temp Pulse Resp BP Pulse Ox 02/18/18 11:00 98.6 F 68 16 148/75 H 94 L 02/18/18 08:00 98.1 F 71 16 151/74 H 94 L Weight Admit Weight 290 lb 11.224 oz Weight 290 lb 11.224 oz I&O: 02/17/18 02/18/18 02/19/18 06:59 06:59 06:59 Intake Total 680 1240 Balance 680 1240 Result Diagrams: 02/16/18 13:08 02/17/18 03:19 Additional Labs: Accuchecks 02/18/18 02/18/18 02/18/18 15:38 11:31 04:34 POC Glucose 115 H 132 H 111 H 02/17/18 02/17/18 20:08 16:32 POC Glucose 154 H 135 H Radiology Reviewed by me: No (Doppler - neg) Phys Exam - Physical Examination Constitutional: NAD Respiratory: no wheezing, no rhonchi Cardiovascular: RRR, no rub Gastrointestinal: soft, non-tender, positive bowel sounds Musculoskeletal: edema present (improving erythema) Neurological: non-focal, moves all 4 limbs Dx/Plan - Plan DVT proph w/lovenox IMPRESSION: 1. Bilateral lower extremity cellulitis. (Patient failed outpatient treatment) 2. Severe cervical spinal stenosis complicated by myelopathy and causing hyperalgesia in bilateral lower extremities. 3. E coli Urinary tract infection. 4. Diabetes mellitus type 2. 5. Hypertension. 6. Hypothyroidism. 7. Severe venous insufficiency of lower extremities. 8. Morbid obesity. 9. Chronic diastolic heart failure, compensated. 10. Asthmatic bronchitis. 11. Chronic pain syndrome. 12. SULFA allergy. 13. Physical deconditioning. PLAN: Cont Rocephin Cont current Gabapentin dose Cont sliding scale and other meds as below Cont PT/OT Microbiology 02/16/18 14:44 Urine clean catch Urine Culture - Preliminary Presumptive Escherichia coli 02/16/18 14:15 Venous blood - Left Hand Blood Culture - Preliminary NO GROWTH AT 48 HOURS 02/16/18 14:10 Venous blood - Left Arm Blood Culture - Preliminary NO GROWTH AT 48 HOURS Review of Systems - Review of Systems Respiratory: negative: Cough, Dry, Shortness of Breath, Hemoptysis, SOB with Excertion, Pleuritic Pain, Sputum, Wheezing Cardiovascular: negative: chest pain, palpitations, orthopnea, paroxysmal nocturnal dyspnea, edema, light headedness, other - Medications/Allergies Allergies/Adverse Reactions: Allergies Allergy/AdvReac Type Severity Reaction Status Date / Time morphine Allergy Verified 02/16/18 18:20 Sulfa (Sulfonamide Allergy Verified 02/16/18 18:20 Antibiotics) sulfamethoxazole Allergy Verified 02/16/18 18:20 [From Bactrim] trimethoprim [From Bactrim] Allergy Verified 02/16/18 18:20 Medications: Current Medications Acetaminophen (Tylenol) 650 mg PO Q4H PRN PRN Reason: Headache/Fever/Mild Pain (1-3) Last Admin: 02/18/18 14:32 Dose: 650 mg Dextrose/Water (Dextrose 50%) 25 gm SLOW IVP PRN PRN PRN Reason: Hypoglycemia Enoxaparin Sodium (Lovenox) 40 mg SC 0900 [facility] Last Admin: 02/18/18 08:29 Dose: 40 mg Famotidine (Pepcid) 20 mg PO DAILY [facility] Last Admin: 02/18/18 08:29 Dose: 20 mg Fentanyl (Sublimaze) 25 mcg SLOW IVP Q6H PRN PRN Reason: Severe Pain (7-10) Last Admin: 02/17/18 11:55 Dose: 25 mcg Furosemide (Lasix) 80 mg PO DAILY-[facility] Last Admin: 02/18/18 08:28 Dose: 80 mg Gabapentin (Neurontin) 200 mg PO TID [facility] Last Admin: 02/18/18 14:29 Dose: 200 mg Glimepiride (Amaryl) 1 mg PO QAM-[facility] Last Admin: 02/18/18 08:28 Dose: 1 mg Glucagon (Glucagon) 1 mg IM PRN PRN PRN Reason: Hypoglycemia Ceftriaxone Sodium 2 gm/ (Sodium Chloride) 100 mls @ 200 mls/hr IVPB DAILY [facility] Last Admin: 02/18/18 08:29 Dose: 100 mls Dextrose/Water (D5w) 1,000 mls @ 0 mls/hr IV .Q0M PRN PRN Reason: Hypoglycemia Insulin Human Regular (Humulin R) 0 units SC .MILD SLIDING SCALE PRN PRN Reason: Mild Correctional Scale Last Admin: 02/17/18 11:56 Dose: 2 unit Insulin Human Regular (Humulin R) 0 units SC .BEDTIME SLIDING SC PRN PRN Reason: Bedtime Correctional Scale Levothyroxine Sodium (Synthroid) 100 mcg PO 0600 [facility] Last Admin: 02/18/18 06:10 Dose: 100 mcg Multivitamins (Theragran) 1 tab PO DAILY [facility] Last Admin: 02/18/18 08:29 Dose: 1 tab Nystatin (Mycostatin Powder) 0 gm TOP BID [facility] Last Admin: 02/18/18 11:36 Dose: 1 applic Ondansetron HCl (Zofran Odt) 4 mg PO Q6H PRN PRN Reason: Nausea/Vomiting Ondansetron HCl (Zofran) 4 mg IVP Q6H PRN PRN Reason: Nausea/Vomiting Polyethylene Glycol (Miralax) 17 gm PO DAILY [facility] Last Admin: 02/18/18 08:29 Dose: 17 gm Saccharomyces Boulardii (Florastor) 250 mg PO DAILY [facility] Last Admin: 02/18/18 08:28 Dose: 250 mg
--- NOTE | 2018-02-18 23:03 | PRG ---
DATE OF SERVICE: 02/18/2018 SUBJECTIVE: Still with pain the legs, but not as much as before. The patient has no respiratory symptoms, no abdominal pain. PHYSICAL EXAMINATION: VITAL SIGNS: She is afebrile. BP 140/75. LUNGS: With symmetric clear breath sounds. HEART: S1, S2, regular rate. ABDOMEN: Soft. The legs have narrow clearcut purpuric color to the erythema and is not so much of blanching erythema anymore. It is clearly reflects an intradermal bleeding or petechiae. This is more typical of a cellulitic infectious process than just stasis dermatitis. I think it pretty much clenches the diagnosis of cellulitis. I would therefore continue treating with Rocephin and transitioned to Keflex eventually with then prophylactic penicillin VK 250 mg twice daily for full year after that. MTDD
[2018-02-19 04:24] LABS: #Eosinphils 0.3 thou/uL (0.0-0.7); #Lymphocytes 1.1 thou/uL (1.20-3.40); #Monocytes 0.5 thou/uL (0.11-0.59); #Neutrophils 3.5 thou/uL (1.40-6.50); %Basophils 0.5 % (0.0-1.0); %Eosinophils 4.9 % (0.0-10.0); %Lymphocytes 20.6 % (21.0-51.0); %Monocytes 9.6 % (0.0-10.0); %Neutrophils 64.4 % (42.0-75.0); Hemoglobin 9.6 g/dL (12.0-16.0); Mean Corpuscular HGB CONC 31.9 g/dL (32.0-36.0); Mean Corpuscular Hemoglobin 28.3 pg (27.0-31.0); Mean Corpuscular Volume 88.9 fL (78.0-98.0); Mean Platelet Volume 7.4 fL (7.4-10.4); Platelet Count 169 thou/uL (130-400); RBC Distribution Width 11.6 % (11.5-14.5); Red Blood Cell (RBC) Count 3.37 mill/uL (4.20-5.40); White Blood Cell (WBC) Count 5.5 thou/uL (4.8-10.8)
[2018-02-19 05:00] LABS: Anion Gap 12 mmol/L (10-20); BUN (Urea Nitrogen) 17 mg/dL (9.8-20.1); Calc. Creatinine Clearance 88 mL/min (70-130); Calcium 8.6 mg/dL (7.8-10.44); Carbon Dioxide 28 mmol/L (23-31); Chloride 102 mmol/L (98-107); Estimated GFR-MDRD 48; Glucose 116 mg/dL (83-110); Potassium 3.9 mmol/L (3.5-5.1); Sodium 138 mmol/L (136-145)
[2018-02-19] MEDS: Levothyroxine Sodium 100 MCG TAB PO SCH (05:19)
[2018-02-19] MEDS: Saccharomyces boulardii 250 MG CAP PO SCH (08:20)
[2018-02-19] MEDS: Gabapentin 100 MG CAP PO SCH ×3 (08:20→20:53)
[2018-02-19] MEDS: Glimepiride 1 MG TAB PO SCH (08:20)
[2018-02-19] MEDS: Multivit, Therapeutic 1 TAB PO SCH (08:21)
[2018-02-19] MEDS: Polyethylene Glycol 3350 17 GM Packet PO SCH (08:21)
[2018-02-19] MEDS: Famotidine 20 MG TAB PO SCH (08:21)
[2018-02-19] MEDS: Furosemide 80 MG TAB PO SCH (08:21)
[2018-02-19] MEDS: Enoxaparin Sodium 40 MG/0.4 ML SYRINGE SC SCH (08:21)
[2018-02-19] MEDS: cefTRIAXone\\ROCEPHIN 2 GM in Sodium Chloride 0.9% 100 ML IVPB SCH (08:21)
[2018-02-19] MEDS: Acetaminophen 325 MG TAB PO PRN (14:15)
[2018-02-19] MEDS: Nystatin Powder 15 GM BOT TOP SCH ×2 (14:19→20:53)
--- NOTE | 2018-02-19 22:40 | PDOC.PN ---
- Subjective Encounter Start Date: 02/19/18 Encounter Start Time: 12:00 Patient seen and examined for Cellulitis. LE pain improving. No new complaints. No overnight events - Objective Resuscitation Status: Resuscitation Status FULL:Full Resuscitation MAR Reviewed: Yes Vital Signs & Weight: Vital Signs (12 hours) Temp Pulse Resp BP Pulse Ox 02/19/18 19:45 98 F 71 18 128/73 92 L Weight Admit Weight 290 lb 11.224 oz Weight 290 lb 11.224 oz I&O: 02/18/18 02/19/18 02/20/18 06:59 06:59 06:59 Intake Total 1240 110 Balance 1240 110 Result Diagrams: 02/19/18 04:02 02/19/18 04:02 Additional Labs: Accuchecks 02/19/18 02/19/18 02/19/18 19:40 16:20 10:46 POC Glucose 133 H 117 H 127 H 02/19/18 05:17 POC Glucose 119 H Phys Exam - Physical Examination Constitutional: NAD Respiratory: no wheezing, no rhonchi Cardiovascular: RRR, no rub Gastrointestinal: soft, non-tender, positive bowel sounds Musculoskeletal: edema present improving erythema Neurological: moves all 4 limbs Dx/Plan - Plan DVT proph w/SCDs IMPRESSION: 1. Bilateral lower extremity cellulitis. (Patient failed outpatient treatment) 2. Severe cervical spinal stenosis complicated by myelopathy and causing hyperalgesia in bilateral lower extremities. 3. E coli Urinary tract infection. 4. Diabetes mellitus type 2. 5. Hypertension. 6. Hypothyroidism. 7. Severe venous insufficiency of lower extremities. 8. Morbid obesity. 9. Chronic diastolic heart failure, compensated. 10. Asthmatic bronchitis. 11. Chronic pain syndrome. 12. SULFA allergy. 13. Physical deconditioning. PLAN: Cont IV Atbx/Gabapentin Cont sliding scale Cont current meds as below Cont PT/OT SNF Eval per patient req Review of Systems - Review of Systems Respiratory: negative: Cough, Dry, Shortness of Breath, Hemoptysis, SOB with Excertion, Pleuritic Pain, Sputum, Wheezing Cardiovascular: negative: chest pain, palpitations, orthopnea, paroxysmal nocturnal dyspnea, edema, light headedness, other - Medications/Allergies Allergies/Adverse Reactions: Allergies Allergy/AdvReac Type Severity Reaction Status Date / Time morphine Allergy Verified 02/16/18 18:20 Sulfa (Sulfonamide Allergy Verified 02/16/18 18:20 Antibiotics) sulfamethoxazole Allergy Verified 02/16/18 18:20 [From Bactrim] trimethoprim [From Bactrim] Allergy Verified 02/16/18 18:20 Medications: Current Medications Acetaminophen (Tylenol) 650 mg PO Q4H PRN PRN Reason: Headache/Fever/Mild Pain (1-3) Last Admin: 02/19/18 14:15 Dose: 650 mg Dextrose/Water (Dextrose 50%) 25 gm SLOW IVP PRN PRN PRN Reason: Hypoglycemia Enoxaparin Sodium (Lovenox) 40 mg SC 0900 [facility] Last Admin: 02/19/18 08:21 Dose: 40 mg Famotidine (Pepcid) 20 mg PO DAILY [facility] Last Admin: 02/19/18 08:21 Dose: 20 mg Fentanyl (Sublimaze) 25 mcg SLOW IVP Q6H PRN PRN Reason: Severe Pain (7-10) Last Admin: 02/17/18 11:55 Dose: 25 mcg Furosemide (Lasix) 80 mg PO DAILY-[facility] Last Admin: 02/19/18 08:21 Dose: 80 mg Gabapentin (Neurontin) 200 mg PO TID [facility] Last Admin: 02/19/18 20:53 Dose: 200 mg Glimepiride (Amaryl) 1 mg PO QAM-[facility] Last Admin: 02/19/18 08:20 Dose: 1 mg Glucagon (Glucagon) 1 mg IM PRN PRN PRN Reason: Hypoglycemia Ceftriaxone Sodium 2 gm/ (Sodium Chloride) 100 mls @ 200 mls/hr IVPB DAILY [facility] Last Admin: 02/19/18 08:21 Dose: 100 mls Dextrose/Water (D5w) 1,000 mls @ 0 mls/hr IV .Q0M PRN PRN Reason: Hypoglycemia Insulin Human Regular (Humulin R) 0 units SC .MILD SLIDING SCALE PRN PRN Reason: Mild Correctional Scale Last Admin: 02/17/18 11:56 Dose: 2 unit Insulin Human Regular (Humulin R) 0 units SC .BEDTIME SLIDING SC PRN PRN Reason: Bedtime Correctional Scale Levothyroxine Sodium (Synthroid) 100 mcg PO 0600 [facility] Last Admin: 02/19/18 05:19 Dose: 100 mcg Multivitamins (Theragran) 1 tab PO DAILY [facility] Last Admin: 02/19/18 08:21 Dose: 1 tab Nystatin (Mycostatin Powder) 0 gm TOP BID [facility] Last Admin: 02/19/18 20:53 Dose: 1 applic Ondansetron HCl (Zofran Odt) 4 mg PO Q6H PRN PRN Reason: Nausea/Vomiting Ondansetron HCl (Zofran) 4 mg IVP Q6H PRN PRN Reason: Nausea/Vomiting Polyethylene Glycol (Miralax) 17 gm PO DAILY [facility] Last Admin: 02/19/18 08:21 Dose: 17 gm Saccharomyces Boulardii (Florastor) 250 mg PO DAILY [facility] Last Admin: 02/19/18 08:20 Dose: 250 mg
[2018-02-20] MEDS: Levothyroxine Sodium 100 MCG TAB PO SCH (05:40)
[2018-02-20] MEDS: Acetaminophen 325 MG TAB PO PRN ×2 (08:40→14:13)
[2018-02-20] MEDS: Polyethylene Glycol 3350 17 GM Packet PO SCH (08:41)
[2018-02-20] MEDS: Gabapentin 100 MG CAP PO SCH ×3 (08:41→20:31)
[2018-02-20] MEDS: Glimepiride 1 MG TAB PO SCH (08:41)
[2018-02-20] MEDS: Multivit, Therapeutic 1 TAB PO SCH (08:41)
[2018-02-20] MEDS: Furosemide 80 MG TAB PO SCH (08:41)
[2018-02-20] MEDS: Famotidine 20 MG TAB PO SCH (08:41)
[2018-02-20] MEDS: Saccharomyces boulardii 250 MG CAP PO SCH (08:41)
[2018-02-20] MEDS: Enoxaparin Sodium 40 MG/0.4 ML SYRINGE SC SCH (08:41)
[2018-02-20] MEDS: Nystatin Powder 15 GM BOT TOP SCH ×2 (08:41→20:33)
[2018-02-20] MEDS: cefTRIAXone\\ROCEPHIN 2 GM in Sodium Chloride 0.9% 100 ML IVPB SCH (08:42)
--- NOTE | 2018-02-20 20:08 | PDOC.PN ---
- Subjective Encounter Start Date: 02/20/18 Encounter Start Time: 12:00 Patient seen and examined for Cellulitis. No new complaints. No overnight events - Objective Resuscitation Status: Resuscitation Status FULL:Full Resuscitation MAR Reviewed: Yes Vital Signs & Weight: Vital Signs (12 hours) Temp Pulse Resp BP Pulse Ox 02/20/18 15:21 98.2 F 67 20 131/77 92 L 02/20/18 11:00 98.0 F 69 20 146/70 H 92 L Weight Admit Weight 290 lb 11.224 oz Weight 290 lb 11.224 oz I&O: 02/19/18 02/20/18 02/21/18 06:59 06:59 06:59 Intake Total 110 130 Balance 110 130 Result Diagrams: 02/19/18 04:02 02/19/18 04:02 Additional Labs: Accuchecks 02/20/18 02/20/18 02/20/18 15:24 11:15 04:26 POC Glucose 97 117 H 94 02/19/18 19:40 POC Glucose 133 H Phys Exam - Physical Examination Constitutional: NAD Respiratory: no wheezing, no rhonchi Cardiovascular: RRR, no rub Gastrointestinal: soft, non-tender, positive bowel sounds Musculoskeletal: edema present Erythema improving Neurological: moves all 4 limbs Dx/Plan - Plan DVT proph w/lovenox IMPRESSION: 1. Bilateral lower extremity cellulitis. (Patient failed outpatient treatment) 2. Severe cervical spinal stenosis complicated by myelopathy and causing hyperalgesia in bilateral lower extremities. 3. E coli Urinary tract infection. 4. Diabetes mellitus type 2. 5. Hypertension. 6. Hypothyroidism. 7. Severe venous insufficiency of lower extremities. 8. Morbid obesity. 9. Chronic diastolic heart failure, compensated. 10. Asthmatic bronchitis. 11. Chronic pain syndrome. 12. SULFA allergy. 13. Physical deconditioning. PLAN: Cont IV Atbx- Change to Keflex at dc Pen VK prophylaxis after completion of Atbx Cont sliding scale Cont current meds as below Cont PT/OT Await Placement Stable for dc Review of Systems - Review of Systems Respiratory: negative: Cough, Dry, Shortness of Breath, Hemoptysis, SOB with Excertion, Pleuritic Pain, Sputum, Wheezing Cardiovascular: negative: chest pain, palpitations, orthopnea, paroxysmal nocturnal dyspnea, edema, light headedness, other - Medications/Allergies Allergies/Adverse Reactions: Allergies Allergy/AdvReac Type Severity Reaction Status Date / Time morphine Allergy Verified 02/16/18 18:20 Sulfa (Sulfonamide Allergy Verified 02/16/18 18:20 Antibiotics) sulfamethoxazole Allergy Verified 02/16/18 18:20 [From Bactrim] trimethoprim [From Bactrim] Allergy Verified 02/16/18 18:20 Medications: Current Medications Acetaminophen (Tylenol) 650 mg PO Q4H PRN PRN Reason: Headache/Fever/Mild Pain (1-3) Last Admin: 02/20/18 14:13 Dose: 650 mg Dextrose/Water (Dextrose 50%) 25 gm SLOW IVP PRN PRN PRN Reason: Hypoglycemia Enoxaparin Sodium (Lovenox) 40 mg SC 0900 [facility] Last Admin: 02/20/18 08:41 Dose: 40 mg Famotidine (Pepcid) 20 mg PO DAILY [facility] Last Admin: 02/20/18 08:41 Dose: 20 mg Fentanyl (Sublimaze) 25 mcg SLOW IVP Q6H PRN PRN Reason: Severe Pain (7-10) Last Admin: 02/17/18 11:55 Dose: 25 mcg Furosemide (Lasix) 80 mg PO DAILY-AC [facility] Last Admin: 02/20/18 08:41 Dose: 80 mg Gabapentin (Neurontin) 200 mg PO TID [facility] Last Admin: 02/20/18 14:12 Dose: 200 mg Glimepiride (Amaryl) 1 mg PO QAM-[facility] Last Admin: 02/20/18 08:41 Dose: 1 mg Glucagon (Glucagon) 1 mg IM PRN PRN PRN Reason: Hypoglycemia Ceftriaxone Sodium 2 gm/ (Sodium Chloride) 100 mls @ 200 mls/hr IVPB DAILY [facility] Last Admin: 02/20/18 08:42 Dose: 100 mls Dextrose/Water (D5w) 1,000 mls @ 0 mls/hr IV .Q0M PRN PRN Reason: Hypoglycemia Insulin Human Regular (Humulin R) 0 units SC .MILD SLIDING SCALE PRN PRN Reason: Mild Correctional Scale Last Admin: 02/17/18 11:56 Dose: 2 unit Insulin Human Regular (Humulin R) 0 units SC .BEDTIME SLIDING SC PRN PRN Reason: Bedtime Correctional Scale Levothyroxine Sodium (Synthroid) 100 mcg PO 0600 [facility] Last Admin: 02/20/18 05:40 Dose: 100 mcg Multivitamins (Theragran) 1 tab PO DAILY [facility] Last Admin: 02/20/18 08:41 Dose: 1 tab Nystatin (Mycostatin Powder) 0 gm TOP BID [facility] Last Admin: 02/20/18 08:41 Dose: 1 applic Ondansetron HCl (Zofran Odt) 4 mg PO Q6H PRN PRN Reason: Nausea/Vomiting Ondansetron HCl (Zofran) 4 mg IVP Q6H PRN PRN Reason: Nausea/Vomiting Polyethylene Glycol (Miralax) 17 gm PO DAILY [facility] Last Admin: 02/20/18 08:41 Dose: 17 gm Saccharomyces Boulardii (Florastor) 250 mg PO DAILY [facility] Last Admin: 02/20/18 08:41 Dose: 250 mg
[2018-02-21] MEDS: Levothyroxine Sodium 100 MCG TAB PO SCH (05:31)
[2018-02-21] MEDS: cefTRIAXone\\ROCEPHIN 2 GM in Sodium Chloride 0.9% 100 ML IVPB SCH (07:46)
[2018-02-21] MEDS: Saccharomyces boulardii 250 MG CAP PO SCH (07:47)
[2018-02-21] MEDS: Multivit, Therapeutic 1 TAB PO SCH (07:47)
[2018-02-21] MEDS: Glimepiride 1 MG TAB PO SCH (07:47)
[2018-02-21] MEDS: Enoxaparin Sodium 40 MG/0.4 ML SYRINGE SC SCH (07:47)
[2018-02-21] MEDS: Gabapentin 100 MG CAP PO SCH ×3 (07:48→20:55)
[2018-02-21] MEDS: Polyethylene Glycol 3350 17 GM Packet PO SCH (07:48)
[2018-02-21] MEDS: Famotidine 20 MG TAB PO SCH (07:49)
[2018-02-21] MEDS: Nystatin Powder 15 GM BOT TOP SCH ×2 (07:49→20:57)
[2018-02-21] MEDS: Furosemide 80 MG TAB PO SCH (07:49)
--- NOTE | 2018-02-21 13:35 | PRG ---
DATE OF SERVICE: 02/21/2018 SUBJECTIVE: Still with quite marked sensitivity in the lower extremities, no respiratory symptoms or abdominal pain, no diarrhea. Today, she sat at the bedside and then stood up for very few seconds, had to lay down again because of pain in lower extremities. OBJECTIVE: VITAL SIGNS: Remained normal except for mild elevation in systolic blood pressure, pulse 67. GENERAL: Awake, alert, oriented, follows commands. LUNGS: Clear. CARDIOVASCULAR: S1, S2, regular rate. ABDOMEN: Soft, not distended. Hypomotility. SKIN AND EXTREMITIES: Stiffness in the extremities. Marked tenderness on very light palpation of th e skin in both the lower extremities consistent with hyperesthesia/allodynia. Now, she has a very vi olaceous/purpuric change in the color of the petechial rash in the lower extremities. LABORATORY DATA: White cell count 5.5, hemoglobin 9.6. Chemistry: Creatinine 1.10. Blood cultures negative. ASSESSMENT AND DISCUSSION: Chronic spinal pain in the lumbosacral spine area with multiple procedure s in the past, radiculopathy with hyperesthesia and allodynia in the lower extremities, venous stasis with now what appears to be of quite interesting episode of cellulitis, which is atypical because of the various symmetric aspect of the skin eruption. It is going through the changes that when she is typically with cellulitis with an initial blanching erythroderma, then transition to a more petechia l hemorrhagic aspect. The pain in the lower extremities is more consistent with hyperesthesia, but w alma delia will continue with antimicrobial therapy. The last time she remembers being without pain was about a month ago after completion of antimicrobials, then transitioned to suppressive Penicillin VK 250 m g twice daily for a long period of time. The patient does not tolerate compression stockings.
--- NOTE | 2018-02-21 20:53 | PDOC.PN ---
- Subjective Encounter Start Date: 02/21/18 Encounter Start Time: 11:00 Patient seen and examined for cellulitis. No new complaints. No overnight events - Objective Resuscitation Status: Resuscitation Status FULL:Full Resuscitation MAR Reviewed: Yes Vital Signs & Weight: Vital Signs (12 hours) Temp Pulse Resp BP BP Pulse Ox 02/21/18 19:46 98.6 F 65 18 128/73 91 L 02/21/18 16:00 98.1 F 70 18 122/74 90 L 02/21/18 12:00 98 F 68 18 123/81 92 L Weight Admit Weight 290 lb 11.224 oz Weight 290 lb 11.224 oz I&O: 02/20/18 02/21/18 02/22/18 06:59 06:59 06:59 Intake Total 130 460 Balance 130 460 Result Diagrams: 02/19/18 04:02 02/19/18 04:02 Additional Labs: Accuchecks 02/21/18 02/21/18 02/21/18 17:03 12:13 04:47 POC Glucose 118 H 143 H 137 H 02/20/18 20:28 POC Glucose 143 H Phys Exam - Physical Examination Constitutional: NAD Respiratory: no wheezing, no rhonchi Cardiovascular: RRR, no rub Gastrointestinal: soft, positive bowel sounds Musculoskeletal: edema present (improving erythema) Neurological: moves all 4 limbs Dx/Plan - Plan DVT proph w/lovenox IMPRESSION: 1. Bilateral lower extremity cellulitis. (Patient failed outpatient treatment) 2. Severe cervical spinal stenosis complicated by myelopathy and causing hyperalgesia in bilateral lower extremities. 3. E coli Urinary tract infection. 4. Diabetes mellitus type 2 - on sliding scale 5. Hypertension. 6. Hypothyroidism. 7. Severe venous insufficiency of lower extremities. 8. Morbid obesity. 9. Chronic diastolic heart failure, compensated. 10. Asthmatic bronchitis. 11. Chronic pain syndrome. 12. SULFA allergy. 13. Physical deconditioning. PLAN: Cont IV Ceftriaxone - Change to Omnicef at dc (Will cover UTI and Cellulitis) Pen VK prophylaxis after completion of Atbx Cont current meds as below Cont PT/OT Await Placement Stable for dc Review of Systems - Review of Systems Respiratory: negative: Cough, Dry, Shortness of Breath, Hemoptysis, SOB with Excertion, Pleuritic Pain, Sputum, Wheezing Cardiovascular: negative: chest pain, palpitations, orthopnea, paroxysmal nocturnal dyspnea, edema, light headedness, other - Medications/Allergies Allergies/Adverse Reactions: Allergies Allergy/AdvReac Type Severity Reaction Status Date / Time morphine Allergy Verified 02/16/18 18:20 Sulfa (Sulfonamide Allergy Verified 02/16/18 18:20 Antibiotics) sulfamethoxazole Allergy Verified 02/16/18 18:20 [From Bactrim] trimethoprim [From Bactrim] Allergy Verified 02/16/18 18:20 Medications: Current Medications Acetaminophen (Tylenol) 650 mg PO Q4H PRN PRN Reason: Headache/Fever/Mild Pain (1-3) Last Admin: 02/20/18 14:13 Dose: 650 mg Dextrose/Water (Dextrose 50%) 25 gm SLOW IVP PRN PRN PRN Reason: Hypoglycemia Enoxaparin Sodium (Lovenox) 40 mg SC 0900 [facility] Last Admin: 02/21/18 07:47 Dose: 40 mg Famotidine (Pepcid) 20 mg PO DAILY [facility] Last Admin: 02/21/18 07:49 Dose: 20 mg Fentanyl (Sublimaze) 25 mcg SLOW IVP Q6H PRN PRN Reason: Severe Pain (7-10) Last Admin: 02/17/18 11:55 Dose: 25 mcg Furosemide (Lasix) 80 mg PO DAILY-AC [facility] Last Admin: 02/21/18 07:49 Dose: 80 mg Gabapentin (Neurontin) 200 mg PO TID [facility] Last Admin: 02/21/18 16:07 Dose: 200 mg Glimepiride (Amaryl) 1 mg PO QAM-[facility] Last Admin: 02/21/18 07:47 Dose: 1 mg Glucagon (Glucagon) 1 mg IM PRN PRN PRN Reason: Hypoglycemia Ceftriaxone Sodium 2 gm/ (Sodium Chloride) 100 mls @ 200 mls/hr IVPB DAILY [facility] Last Admin: 02/21/18 07:46 Dose: 100 mls Dextrose/Water (D5w) 1,000 mls @ 0 mls/hr IV .Q0M PRN PRN Reason: Hypoglycemia Insulin Human Regular (Humulin R) 0 units SC .MILD SLIDING SCALE PRN PRN Reason: Mild Correctional Scale Last Admin: 02/17/18 11:56 Dose: 2 unit Insulin Human Regular (Humulin R) 0 units SC .BEDTIME SLIDING SC PRN PRN Reason: Bedtime Correctional Scale Levothyroxine Sodium (Synthroid) 100 mcg PO 0600 [facility] Last Admin: 02/21/18 05:31 Dose: 100 mcg Multivitamins (Theragran) 1 tab PO DAILY [facility] Last Admin: 02/21/18 07:47 Dose: 1 tab Nystatin (Mycostatin Powder) 0 gm TOP BID [facility] Last Admin: 02/21/18 07:49 Dose: 1 applic Ondansetron HCl (Zofran Odt) 4 mg PO Q6H PRN PRN Reason: Nausea/Vomiting Ondansetron HCl (Zofran) 4 mg IVP Q6H PRN PRN Reason: Nausea/Vomiting Polyethylene Glycol (Miralax) 17 gm PO DAILY [facility] Last Admin: 02/21/18 07:48 Dose: Not Given Saccharomyces Boulardii (Florastor) 250 mg PO DAILY [facility] Last Admin: 02/21/18 07:47 Dose: 250 mg
[2018-02-22 04:40] LABS: #Basophils 0.1 thou/uL (0.0-0.2); #Eosinphils 0.4 thou/uL (0.0-0.7); #Lymphocytes 1.5 thou/uL (1.20-3.40); #Monocytes 0.4 thou/uL (0.11-0.59); #Neutrophils 3.1 thou/uL (1.40-6.50); %Basophils 1.2 % (0.0-1.0); %Eosinophils 6.4 % (0.0-10.0); %Lymphocytes 27.9 % (21.0-51.0); %Neutrophils 56.6 % (42.0-75.0); Hemoglobin 10.4 g/dL (12.0-16.0); Mean Corpuscular HGB CONC 32.1 g/dL (32.0-36.0); Mean Corpuscular Hemoglobin 28.5 pg (27.0-31.0); Mean Corpuscular Volume 88.8 fL (78.0-98.0); Mean Platelet Volume 7.7 fL (7.4-10.4); Platelet Count 212 thou/uL (130-400); RBC Distribution Width 11.7 % (11.5-14.5); Red Blood Cell (RBC) Count 3.66 mill/uL (4.20-5.40); White Blood Cell (WBC) Count 5.5 thou/uL (4.8-10.8)
[2018-02-22 04:50] LABS: Anion Gap 7 mmol/L (10-20); BUN (Urea Nitrogen) 19 mg/dL (9.8-20.1); Calc. Creatinine Clearance 95 mL/min (70-130); Calcium 8.7 mg/dL (7.8-10.44); Carbon Dioxide 32 mmol/L (23-31); Chloride 104 mmol/L (98-107); Estimated GFR-MDRD 52; Glucose 104 mg/dL (83-110); Potassium 3.9 mmol/L (3.5-5.1); Sodium 139 mmol/L (136-145)
[2018-02-22] MEDS: Levothyroxine Sodium 100 MCG TAB PO SCH (05:32)
[2018-02-22 07:12] VITALS: BP 142/76; TEMP 97.6
[2018-02-22] MEDS: cefTRIAXone\\ROCEPHIN 2 GM in Sodium Chloride 0.9% 100 ML IVPB SCH (07:54)
[2018-02-22] MEDS: Polyethylene Glycol 3350 17 GM Packet PO SCH (07:55)
[2018-02-22] MEDS: Multivit, Therapeutic 1 TAB PO SCH (07:55)
[2018-02-22] MEDS: Famotidine 20 MG TAB PO SCH (07:55)
[2018-02-22] MEDS: Gabapentin 100 MG CAP PO SCH ×2 (07:55→15:14)
[2018-02-22] MEDS: Furosemide 80 MG TAB PO SCH (07:55)
[2018-02-22] MEDS: Glimepiride 1 MG TAB PO SCH (07:55)
[2018-02-22] MEDS: Saccharomyces boulardii 250 MG CAP PO SCH (07:55)
[2018-02-22] MEDS: Nystatin Powder 15 GM BOT TOP SCH (08:01)
[2018-02-22] MEDS: Enoxaparin Sodium 40 MG/0.4 ML SYRINGE SC SCH (08:04)
--- NOTE | 2018-02-22 09:22 | PDOC.PN ---
- Subjective Encounter Start Date: 02/22/18 Encounter Start Time: 09:22 Subjective: feels very weak but feels that leg rash is much better -: no F/C.no abd pain/N/V/D - Objective Resuscitation Status: Resuscitation Status FULL:Full Resuscitation MAR Reviewed: Yes Vital Signs & Weight: Vital Signs (12 hours) Temp Pulse Resp BP Pulse Ox 02/22/18 07:07 97.6 F 68 18 142/76 H 92 L 02/22/18 05:00 98.1 F 70 19 138/71 95 Weight Admit Weight 290 lb 11.224 oz Weight 290 lb 11.224 oz I&O: 02/21/18 02/22/18 02/23/18 06:59 06:59 06:59 Intake Total 460 360 240 Balance 460 360 240 Result Diagrams: 02/22/18 03:49 02/22/18 03:49 Additional Labs: Accuchecks 02/22/18 02/21/18 02/21/18 05:28 20:41 17:03 POC Glucose 109 131 H 118 H 02/21/18 12:13 POC Glucose 143 H Microbiology 02/16/18 14:44 Urine clean catch Urine Culture - Final Escherichia coli 02/16/18 14:15 Venous blood - Left Hand Blood Culture - Final NO GROWTH IN 5 DAYS 02/16/18 14:10 Venous blood - Left Arm Blood Culture - Final NO GROWTH IN 5 DAYS Phys Exam - Physical Examination Constitutional: NAD HEENT: PERRLA, moist MMs, sclera anicteric, oral pharynx no lesions, 2+ tonsils Neck: no nodes, no JVD, supple, full ROM Respiratory: no wheezing, no rales, no rhonchi, clear to auscultation bilateral Cardiovascular: RRR, no significant murmur, no rub Gastrointestinal: soft, non-tender, no distention, positive bowel sounds Musculoskeletal: no edema, pulses present papular rash b/l legs Neurological: non-focal, normal sensation, moves all 4 limbs Dx/Plan - Plan * .. Bilateral lower extremity cellulitis. Please note that the patient failed outpatient treatment. 2. Severe cervical spinal stenosis complicated by myelopathy and causing hyperalgesia in bilateral lower extremities. 3. Urinary tract infection. 4. Diabetes mellitus type 2. 5. Hypertension. 6. Hypothyroidism. 7. Severe venous insufficiency of lower extremities. 8. Morbid obesity. 9. Chronic diastolic heart failure, compensated. 10. Asthmatic bronchitis. 11. Chronic pain syndrome. 12. SULFA allergy. 13. Physical deconditioning. PLAN: Con Rocephin.last dose to be given today as it will cover UTi as well. Then Dc to rehab Increased Gabapentin dose .continue Cont sliding scale Cont other meds as below Accepted at rehab . will DC. Pen V K for [address] red Review of Systems - Medications/Allergies Allergies/Adverse Reactions: Allergies Allergy/AdvReac Type Severity Reaction Status Date / Time morphine Allergy Verified 02/16/18 18:20 Sulfa (Sulfonamide Allergy Verified 02/16/18 18:20 Antibiotics) sulfamethoxazole Allergy Verified 02/16/18 18:20 [From Bactrim] trimethoprim [From Bactrim] Allergy Verified 02/16/18 18:20 Medications: Current Medications Acetaminophen (Tylenol) 650 mg PO Q4H PRN PRN Reason: Headache/Fever/Mild Pain (1-3) Last Admin: 02/20/18 14:13 Dose: 650 mg Dextrose/Water (Dextrose 50%) 25 gm SLOW IVP PRN PRN PRN Reason: Hypoglycemia Enoxaparin Sodium (Lovenox) 40 mg SC 0900 [facility] Last Admin: 02/22/18 08:04 Dose: 40 mg Famotidine (Pepcid) 20 mg PO DAILY [facility] Last Admin: 02/22/18 07:55 Dose: 20 mg Fentanyl (Sublimaze) 25 mcg SLOW IVP Q6H PRN PRN Reason: Severe Pain (7-10) Last Admin: 02/17/18 11:55 Dose: 25 mcg Furosemide (Lasix) 80 mg PO DAILY-AC [facility] Last Admin: 02/22/18 07:55 Dose: 80 mg Gabapentin (Neurontin) 200 mg PO TID [facility] Last Admin: 02/22/18 07:55 Dose: 200 mg Glimepiride (Amaryl) 1 mg PO QAM-[facility] Last Admin: 02/22/18 07:55 Dose: 1 mg Glucagon (Glucagon) 1 mg IM PRN PRN PRN Reason: Hypoglycemia Ceftriaxone Sodium 2 gm/ (Sodium Chloride) 100 mls @ 200 mls/hr IVPB DAILY [facility] Last Admin: 02/22/18 07:54 Dose: 100 mls Dextrose/Water (D5w) 1,000 mls @ 0 mls/hr IV .Q0M PRN PRN Reason: Hypoglycemia Insulin Human Regular (Humulin R) 0 units SC .MILD SLIDING SCALE PRN PRN Reason: Mild Correctional Scale Last Admin: 02/17/18 11:56 Dose: 2 unit Insulin Human Regular (Humulin R) 0 units SC .BEDTIME SLIDING SC PRN PRN Reason: Bedtime Correctional Scale Levothyroxine Sodium (Synthroid) 100 mcg PO 0600 [facility] Last Admin: 02/22/18 05:32 Dose: 100 mcg Multivitamins (Theragran) 1 tab PO DAILY [facility] Last Admin: 02/22/18 07:55 Dose: 1 tab Nystatin (Mycostatin Powder) 0 gm TOP BID [facility] Last Admin: 02/22/18 08:01 Dose: 1 applic Ondansetron HCl (Zofran Odt) 4 mg PO Q6H PRN PRN Reason: Nausea/Vomiting Ondansetron HCl (Zofran) 4 mg IVP Q6H PRN PRN Reason: Nausea/Vomiting Polyethylene Glycol (Miralax) 17 gm PO DAILY [facility] Last Admin: 02/22/18 07:55 Dose: 17 gm Saccharomyces Boulardii (Florastor) 250 mg PO DAILY [facility] Last Admin: 02/22/18 07:55 Dose: 250 mg
--- NOTE | 2018-02-23 01:20 | DIS ---
DATE OF ADMISSION: 02/16/2018 DATE OF DISCHARGE: 02/22/2018 DISCHARGE DISPOSITION: Swing bed in [place]. DISCHARGE DIAGNOSES: 1. Bilateral lower extremity cellulitis, improving. 2. Urinary tract infection with Escherichia coli resistant to ampicillin and nitrofurantoin. 3. Severe spinal canal stenosis complicated by myelopathy with resultant hyperalgesia in bilateral l ower extremities. 4. Type 2 diabetes mellitus. 5. Hypertension. 6. Hypothyroidism. 7. Severe chronic venous insufficiency of lower extremities. 8. Morbid obesity. 9. Chronic diastolic heart failure, currently compensated. 10. History of asthmatic bronchitis. 11. Chronic pain syndrome. 12. SULFONAMIDE allergy. 13. Physical deconditioning. DISCHARGE MEDICATIONS: Penicillin VK 250 mg p.o. b.i.d. for 1 year as per ID recommendations. Resum e home medications as follows: MiraLax 17 grams daily, multivitamin daily, glimepiride 1 mg daily, T ylenol Extra strength p.r.n., levothyroxine 100 mcg daily, Lasix 80 mg daily, Zofran p.r.n., nystatin topical b.i.d. as needed, Neurontin 200 mg p.o. t.i.d., Pepcid 20 mg daily, and Lovenox 40 mg subcut aneously daily while she is in the rehabilitation. PROCEDURES DONE IN THE HOSPITAL: Lower extremity ultrasound which is negative for any DVT bilaterall y. CONSULTATION IN-HOUSE: Infectious Disease, Dr. Swain. PRIMARY CARE PHYSICIAN: Jay Osorio M.D. HISTORY OF PRESENT ILLNESS: Ms. Leslie is a 77-year-old female with known history of chronic venou s insufficiency and cervical myelopathy with allodynia and hyperalgesia as well as diabetes and chron ic diastolic congestive heart failure, presented to the emergency room with complaints of worsening e rythema and pain in bilateral lower extremities. She was seen in our facility 2 months ago with lucas lar complaints and was discharged on Augmentin. [facility] and has been on Penicillin VK prophylaxis for the last 6 months. She was discharged to [facility] weeks ago. She came back to the ER with worsening lower extremity swelling, erythema, and pain. She has failed outpatient therapy as started by the emergency room 2 days ago on Keflex. Ple ase see admission history and physical for further detail. Lower extremity ultrasound was done which was negative for DVT. She was started on empiric IV antibiotic and ID was consulted. Dr. Swain saw the patient and recommended continuation of Rocephin for the duration. The patient had slow clinical improvement. She was also found to have a urinary tract infection with E. coli which was resistant to ampicillin and nitrofurantoin. She was treated with 6 or 7 days of IV Rocephin whil e in the hospital. For discharge, Dr. Swain recommended continuation of Penicillin VK 250 b.i.d. for 1 year. She was seen and examined prior to discharge. Please see hospitalist progress note from today's date for [id number] interaction. She is back to her baseline and ready for the next level of care. Di scharge plan was discussed with the patient who verbalized understanding. Medication reconciliation was done. She has been accepted to [facility] for rehabilitation and will be discharged. Total time spent 32 minutes in the discharge.
--- NOTE | 2018-02-24 17:07 | PQF ---
SAMI GOINS MALIK MD [id number] CLINICAL DOCUMENTATION CLARIFICATION FORM: POST DISCHARGE Addendum to original discharge summary date: ____ Late entry note date: __ DATE: 02/24/18 ATTN: Please exercise your independent, professional judgment in responding to the clarification form. Clinical indicators are provided on the bottom of this form for your review Patient noted for quadriparesis. Please further clarify quadriparesis as: Please check appropriate box(s): [ ] Quadriplegia [ ] Muscle Weakness [ ] Other diagnosis [ ] Unable to determine In addition, please specify: Present on Admission (POA): [ ] Yes [ ] No [ ] Unable to determine For continuity of documentation, please document condition throughout progress notes and discharge summary. Thank You. CLINICAL INDICATORS - SIGNS / SYMPTOMS / LABS C-Spine iinjury with wheelchair confinement status RISK FACTORS Cellulitis of legs (This form is maintained as a part of the permanent medical record) 2014 [employer] All Rights Reserved [email or web address] [phone] [email or web address]
--- NOTE | 2018-02-26 10:47 | PQF ---
SAMI GOINS MALIK MD [id number] CLINICAL DOCUMENTATION CLARIFICATION FORM: POST DISCHARGE Addendum to original discharge summary date: ____ Late entry note date: __ DATE: 02/26/18 ATTN: Please exercise your independent, professional judgment in responding to the clarification form. Clinical indicators are provided on the bottom of this form for your review Patient noted for quadriparesis. Please clarify quadriparesis as: Please check appropriate box(s): [ ] Quadriplegia [ ] Muscle Weakness [ ] Other diagnosis [ x] Unable to determine In addition, please specify: Present on Admission (POA): [ ] Yes [ ] No [ ] Unable to determine For continuity of documentation, please document condition throughout progress notes and discharge summary. Thank You. CLINICAL INDICATORS - SIGNS / SYMPTOMS / LABS C-Spine injury with wheelchair confinement status - per Consult notes, Dr. Swain 02/17/18 RISK FACTORS Bilateral cellulitis of legs TREATMENTS: Consult evaluation by Dr. Jon on 02/17/18 (This form is maintained as a part of the permanent medical record) 2014 [employer]. All Rights Reserved [email or web address] [phone] [email or web address]
== END 2018-02-22 16:23 | DRG 602 ==
LOC: ERS 12:12 → T4-A 17:57
PROVIDERS: ADMIT Internal Medicine; ATTEND Internal Medicine
DX: L03.116 Cellulitis of left lower limb (principal); G82.50 Quadriplegia, unspecified; Z68.41 Body mass index [BMI] 40.0-44.9, adult; I50.32 Chronic diastolic (congestive) heart failure; N39.0 Urinary tract infection, site not specified; G95.9 Disease of spinal cord, unspecified; L03.115 Cellulitis of right lower limb; E66.01 Morbid (severe) obesity due to excess calories; M48.02 Spinal stenosis, cervical region; B96.20 Unspecified Escherichia coli [E. coli] as the cause of diseases classified elsewhere; I87.8 Other specified disorders of veins; R20.8 Other disturbances of skin sensation; J45.909 Unspecified asthma, uncomplicated; E11.9 Type 2 diabetes mellitus without complications; L89.151 Pressure ulcer of sacral region, stage 1; E03.9 Hypothyroidism, unspecified; M19.90 Unspecified osteoarthritis, unspecified site; Z99.3 Dependence on wheelchair; D63.8 Anemia in other chronic diseases classified elsewhere; B37.9 Candidiasis, unspecified; Z88.2 Allergy status to sulfonamides; Z88.5 Allergy status to narcotic agent; G89.4 Chronic pain syndrome; Z79.1 Long term (current) use of non-steroidal anti-inflammatories (NSAID); Z79.4 Long term (current) use of insulin; Z79.899 Other long term (current) drug therapy; M62.81 Muscle weakness (generalized)
CPT/HCPCS: 36415; 36416; 80048; 80053; 81003; 81015; 82550; 83735; 85025; 85652; 85730; 86140; 87040; 87077; 87086; 87186; 90471; 90662; 93970; 96365; 96367; 96375; 99285; G0008; G8978-GP-CN; G8979-GP-CK; G8987-GO-CM; G8988-GO-CK; J0696; J1650; J1815; J2543; J3010; J3370; J7050

== ENCOUNTER 2021-03-19 13:27 | Inpatient (IN) | payer MEDICARE, MEDICAID ==
[~2021-03-19 13:27] MED LIST: Iopamidol-370 76% 500 ML 1 ML ONE
[2021-03-19 14:06] LABS: Hemoglobin 11.7 g/dL (12.0-16.0); Mean Corpuscular HGB CONC 31.2 g/dL (32.0-36.0); Mean Corpuscular Hemoglobin 27.7 pg (27.0-31.0); Mean Corpuscular Volume 88.7 fL (78.0-98.0); Mean Platelet Volume 7.8 fL (7.4-10.4); Platelet Count 169 thou/uL (130-400); RBC Distribution Width 11.8 % (11.5-14.5); Red Blood Cell (RBC) Count 4.22 mill/uL (4.20-5.40); White Blood Cell (WBC) Count 14.4 thou/uL (4.8-10.8)
[2021-03-19 14:19] LABS: Band 6 % (5-11); Eosinophils 1 % (0-10); Lymphocytes 3 % (21-51); MDiff Complete? YES; Monocytes 2 % (0-10); Neutrophil 88 % (42-75); Platelet Morphology Comment Appears Adequate; RBC Morphology Normal
[2021-03-19 14:27] LABS: ALT (SGPT) 13 U/L (8-55); AST (SGOT) 16 U/L (5-34); Albumin 3.3 g/dL (3.4-4.8); Alkaline Phosphatase 87 U/L (40-110); Anion Gap 13 mmol/L (10-20); BUN (Urea Nitrogen) 20 mg/dL (9.8-20.1); Bilirubin, Total 0.8 mg/dL (0.2-1.2); Calc. Creatinine Clearance 0 mL/min (70-130); Calcium 7.9 mg/dL (7.8-10.44); Carbon Dioxide 20 mmol/L (23-31); Chloride 109 mmol/L (98-107); Globulin 2.9 g/dL (2.4-3.5); Glucose 149 mg/dL (83-110); Potassium 4.8 mmol/L (3.5-5.1); Protein, Total 6.2 g/dL (5.8-8.1); Sodium 137 mmol/L (136-145)
[2021-03-19] MEDS ORDERED: Acetaminophen 500 MG TAB ONE (14:45)
[2021-03-19 15:38] LABS: Bilirubin Negative (Negative); Blood, Urine 2+ (Negative); Clarity Extra Turbid (Clear); Glucose, Urine (Dipstick) Normal (Negative); Ketone, Urine Negative (Negative); Leukocyte 500 Leu/uL (Negative); Nitrite Negative (Negative); Protein, Urine (Dipstick) 100 mg/dL (Neg-Trace); Squamous Epithelial None Seen HPF (0-3); Urobilinogen Normal mg/dL (Less than 2); WBC/HPF Greater than 50 HPF (0-3); pH, Urine 5.5 (5.0-9.0)
[2021-03-19 15:47] LABS: Bacteria/HPF 2+ HPF (None Seen); Specific Gravity, Urine 1.016 (1.002-1.036)
[2021-03-19] MEDS ORDERED: cefTRIAXone\\ROCEPHIN 1 GM VIAL ONE (16:40)
[2021-03-19] MEDS ORDERED: Bisacodyl 5 MG TAB PO PRN (17:03)
[2021-03-19] MEDS ORDERED: Guaifenesin DM 100-10/5 ML UDCUP PO PRN (17:03)
[2021-03-19] MEDS ORDERED: Calcium Carbonate 500 MG ChewTAB PO PRN (17:03)
[2021-03-19 17:40] LABS: SARS-CoV-2 NAA Rapid Test Not Detected (NotDetected)
[2021-03-19] MEDS ORDERED: Gabapentin 100 MG CAP PO SCH (17:45)
[2021-03-19] MEDS ORDERED: Piperacillin/Tazobactam 3.375 GM in Sodium Chloride 0.9% 100 ML IVPB SCH ×2 (20:00→23:59)
[2021-03-19 20:10] LABS: Legionella Urinary Ag Negative (Negative); Strep pneumo Urine Ag NEGATIVE (NEGATIVE)
[2021-03-19] MEDS: Famotidine 20 MG TAB PO SCH (21:25)
[2021-03-19] MEDS: Gabapentin 100 MG CAP PO SCH (21:27)
[2021-03-19 23:50] VITALS: BMI 40.6
[2021-03-20] MEDS: Piperacillin/Tazobactam 3.375 GM in Sodium Chloride 0.9% 100 ML IVPB SCH ×3 (00:31→15:18)
[2021-03-20] MEDS: Famotidine 20 MG TAB PO SCH (08:06)
[2021-03-20] MEDS: Gabapentin 100 MG CAP PO SCH ×3 (08:06→22:30)
[2021-03-20] MEDS ORDERED: Enoxaparin Sodium 40 MG/0.4 ML SYRINGE SC SCH (09:00)
[2021-03-20 09:39] LABS: #Eosinphils 0.6 thou/uL (0.0-0.7); #Lymphocytes 0.8 thou/uL (1.20-3.40); #Monocytes 0.7 thou/uL (0.11-0.59); #Neutrophils 14.1 thou/uL (1.40-6.50); %Basophils 0.1 % (0.0-1.0); %Eosinophils 3.6 % (0.0-10.0); %Lymphocytes 4.8 % (21.0-51.0); %Monocytes 4.3 % (0.0-10.0); %Neutrophils 87.3 % (42.0-75.0); Hemoglobin 10.5 g/dL (12.0-16.0); Mean Corpuscular HGB CONC 31.8 g/dL (32.0-36.0); Mean Corpuscular Hemoglobin 28.8 pg (27.0-31.0); Mean Corpuscular Volume 90.7 fL (78.0-98.0); Mean Platelet Volume 8.1 fL (7.4-10.4); Platelet Count 176 thou/uL (130-400); Red Blood Cell (RBC) Count 3.63 mill/uL (4.20-5.40); White Blood Cell (WBC) Count 16.1 thou/uL (4.8-10.8)
[2021-03-20 10:46] LABS: Anion Gap 13 mmol/L (10-20); BUN (Urea Nitrogen) 31 mg/dL (9.8-20.1); Calc. Creatinine Clearance 42 mL/min (70-130); Carbon Dioxide 22 mmol/L (23-31); Chloride 105 mmol/L (98-107); Glucose 129 mg/dL (83-110); Potassium 5.1 mmol/L (3.5-5.1); Sodium 135 mmol/L (136-145)
[2021-03-20] MEDS ORDERED: cefTRIAXone\\ROCEPHIN 2 GM in Sodium Chloride 0.9% 100 ML IVPB SCH (16:00)
[2021-03-20] MEDS: Acetaminophen 325 MG TAB PO PRN (22:30)
[2021-03-21] MEDS: Piperacillin/Tazobactam 3.375 GM in Sodium Chloride 0.9% 100 ML IVPB SCH ×3 (00:15→15:55)
[2021-03-21] MEDS: Levothyroxine Sodium 100 MCG TAB PO SCH (06:13)
[2021-03-21 06:32] LABS: #Eosinphils 0.8 thou/uL (0.0-0.7); #Lymphocytes 0.9 thou/uL (1.20-3.40); #Monocytes 0.4 thou/uL (0.11-0.59); #Neutrophils 5.8 thou/uL (1.40-6.50); %Basophils 0.2 % (0.0-1.0); %Eosinophils 9.9 % (0.0-10.0); %Lymphocytes 11.4 % (21.0-51.0); %Monocytes 5.5 % (0.0-10.0); Hemoglobin 9.9 g/dL (12.0-16.0); Mean Corpuscular HGB CONC 33.6 g/dL (32.0-36.0); Mean Corpuscular Hemoglobin 30.1 pg (27.0-31.0); Mean Corpuscular Volume 89.7 fL (78.0-98.0); Mean Platelet Volume 8.4 fL (7.4-10.4); Platelet Count 148 thou/uL (130-400); RBC Distribution Width 12.1 % (11.5-14.5); Red Blood Cell (RBC) Count 3.28 mill/uL (4.20-5.40); White Blood Cell (WBC) Count 7.9 thou/uL (4.8-10.8)
[2021-03-21 06:57] LABS: Anion Gap 10 mmol/L (10-20); BUN (Urea Nitrogen) 35 mg/dL (9.8-20.1); Calc. Creatinine Clearance 45 mL/min (70-130); Calcium 7.9 mg/dL (7.8-10.44); Carbon Dioxide 23 mmol/L (23-31); Chloride 108 mmol/L (98-107); Glucose 131 mg/dL (83-110); Potassium 4.3 mmol/L (3.5-5.1); Sodium 137 mmol/L (136-145)
[2021-03-21] MEDS: Famotidine 20 MG TAB PO SCH (09:00)
[2021-03-21] MEDS: Enoxaparin Sodium 30 MG/0.3 ML SYRINGE SC SCH (09:00)
[2021-03-21] MEDS ORDERED: Lisinopril 10 MG TAB PO SCH (09:00)
[2021-03-21] MEDS: Sodium Chloride 0.9% 1,000 ML IV SCH (09:00)
[2021-03-21] MEDS: Gabapentin 100 MG CAP PO SCH ×3 (09:01→21:16)
[2021-03-21] MEDS: Lantus 1000 UNITS/10 ML VIAL SC SCH (09:45)
[2021-03-21] MEDS: Acetaminophen 325 MG TAB PO PRN ×2 (17:42→21:16)
[2021-03-22] MEDS: Piperacillin/Tazobactam 3.375 GM in Sodium Chloride 0.9% 100 ML IVPB SCH ×3 (00:35→15:52)
[2021-03-22] MEDS: Sodium Chloride 0.9% 1,000 ML IV SCH ×2 (01:56→06:51)
[2021-03-22] MEDS: Acetaminophen 325 MG TAB PO PRN (05:11)
[2021-03-22] MEDS: Levothyroxine Sodium 100 MCG TAB PO SCH (05:15)
[2021-03-22 05:42] LABS: #Eosinphils 0.6 thou/uL (0.0-0.7); #Lymphocytes 0.9 thou/uL (1.20-3.40); #Monocytes 0.3 thou/uL (0.11-0.59); #Neutrophils 3.1 thou/uL (1.40-6.50); %Basophils 0.2 % (0.0-1.0); %Eosinophils 12.2 % (0.0-10.0); %Lymphocytes 18.8 % (21.0-51.0); %Monocytes 5.8 % (0.0-10.0); Hemoglobin 9.4 g/dL (12.0-16.0); Mean Corpuscular HGB CONC 31.6 g/dL (32.0-36.0); Mean Corpuscular Hemoglobin 28.2 pg (27.0-31.0); Mean Corpuscular Volume 89.4 fL (78.0-98.0); Mean Platelet Volume 8.3 fL (7.4-10.4); Platelet Count 161 thou/uL (130-400); RBC Distribution Width 11.9 % (11.5-14.5); Red Blood Cell (RBC) Count 3.34 mill/uL (4.20-5.40); White Blood Cell (WBC) Count 4.9 thou/uL (4.8-10.8)
[2021-03-22 06:02] LABS: Anion Gap 11 mmol/L (10-20); BUN (Urea Nitrogen) 23 mg/dL (9.8-20.1); Calc. Creatinine Clearance 69 mL/min (70-130); Calcium 7.9 mg/dL (7.8-10.44); Carbon Dioxide 23 mmol/L (23-31); Chloride 108 mmol/L (98-107); Glucose 202 mg/dL (83-110); Potassium 4.5 mmol/L (3.5-5.1); Sodium 137 mmol/L (136-145)
[2021-03-22] MEDS: Enoxaparin Sodium 30 MG/0.3 ML SYRINGE SC SCH (08:31)
[2021-03-22] MEDS: Famotidine 20 MG TAB PO SCH (08:31)
[2021-03-22] MEDS: Gabapentin 100 MG CAP PO SCH ×3 (08:31→21:18)
[2021-03-22] MEDS: Lantus 1000 UNITS/10 ML VIAL SC SCH (08:32)
[2021-03-22] MEDS: Senokot S 8.6-50 MG TAB PO SCH (21:18)
[2021-03-23] MEDS: Piperacillin/Tazobactam 3.375 GM in Sodium Chloride 0.9% 100 ML IVPB SCH ×3 (00:08→15:16)
[2021-03-23] MEDS: Levothyroxine Sodium 100 MCG TAB PO SCH (05:08)
[2021-03-23] MEDS: Enoxaparin Sodium 30 MG/0.3 ML SYRINGE SC SCH (08:05)
[2021-03-23] MEDS: Senokot S 8.6-50 MG TAB PO SCH (08:06)
[2021-03-23] MEDS: Gabapentin 100 MG CAP PO SCH ×2 (08:06→15:16)
[2021-03-23] MEDS: Famotidine 20 MG TAB PO SCH (08:06)
[2021-03-23] MEDS: Lantus 1000 UNITS/10 ML VIAL SC SCH (08:10)
[2021-03-23] MEDS ORDERED: Polyethylene Glycol 3350 17 GM Packet PO SCH (09:00)
[2021-03-23 11:49] VITALS: TEMP 98.6
[2021-03-23] MEDS ORDERED: Amlodipine 5 MG TAB PO SCH (16:00)
[2021-03-23 16:30] VITALS: BP 163/79
== END 2021-03-23 17:48 | DRG 871 ==
LOC: ERS 13:27 → T4-A 17:07
PROVIDERS: ADMIT Hospitalist; ATTEND Family Medicine
DX: A41.59 Other Gram-negative sepsis (principal); G93.41 Metabolic encephalopathy; N30.00 Acute cystitis without hematuria; N17.9 Acute kidney failure, unspecified; I13.0 Hypertensive heart and chronic kidney disease with heart failure and stage 1 through stage 4 chronic kidney disease, or unspecified chronic kidney disease; Z68.41 Body mass index [BMI] 40.0-44.9, adult; Z20.822 Contact with and (suspected) exposure to COVID-19; F03.90 Unspecified dementia, unspecified severity, without behavioral disturbance, psychotic disturbance, mood disturbance, and anxiety; H91.90 Unspecified hearing loss, unspecified ear; E66.01 Morbid (severe) obesity due to excess calories; E11.22 Type 2 diabetes mellitus with diabetic chronic kidney disease; E03.9 Hypothyroidism, unspecified; I50.9 Heart failure, unspecified; M19.90 Unspecified osteoarthritis, unspecified site; N18.9 Chronic kidney disease, unspecified; D63.1 Anemia in chronic kidney disease; R13.12 Dysphagia, oropharyngeal phase; Z90.710 Acquired absence of both cervix and uterus; Z88.1 Allergy status to other antibiotic agents; Z88.5 Allergy status to narcotic agent; Z88.2 Allergy status to sulfonamides; Z88.8 Allergy status to other drugs, medicaments and biological substances; Z79.890 Hormone replacement therapy; Z79.4 Long term (current) use of insulin; Z79.899 Other long term (current) drug therapy; Z91.81 History of falling; Z74.01 Bed confinement status; Z86.73 Personal history of transient ischemic attack (TIA), and cerebral infarction without residual deficits; Z86.16 Personal history of COVID-19
CPT/HCPCS: 36415; 36416; 51701; 71045; 74177; 80048; 80053; 81003; 81015; 83605; 83880; 84484; 85025; 86140; 87040; 87077; 87086; 87186; 87449; 87899; 93970; 94640; 96365; J0696; J1650; J1815; J2543; J3490; J7050; J7620; Q9967; U0002

== ENCOUNTER 2021-10-01 09:33 | Emergency (ER) | payer MEDICARE, MEDICAID ==
[2021-10-01 11:48] LABS: #Basophils 0.1 thou/uL (0.0-0.2); #Eosinphils 0.2 thou/uL (0.0-0.7); #Lymphocytes 1.6 thou/uL (1.20-3.40); #Monocytes 0.3 thou/uL (0.11-0.59); #Neutrophils 4.6 thou/uL (1.40-6.50); %Basophils 0.8 % (0.0-1.0); %Eosinophils 2.6 % (0.0-10.0); %Lymphocytes 23.7 % (21.0-51.0); %Monocytes 4.9 % (0.0-10.0); Hemoglobin 12.9 g/dL (12.0-16.0); Mean Corpuscular HGB CONC 31.2 g/dL (32.0-36.0); Mean Corpuscular Hemoglobin 28.3 pg (27.0-31.0); Mean Corpuscular Volume 90.6 fL (78.0-98.0); Mean Platelet Volume 7.7 fL (7.4-10.4); Platelet Count 220 thou/uL (130-400); RBC Distribution Width 11.4 % (11.5-14.5); Red Blood Cell (RBC) Count 4.58 mill/uL (4.20-5.40); White Blood Cell (WBC) Count 6.8 thou/uL (4.8-10.8)
[2021-10-01 12:09] LABS: ALT (SGPT) 10 U/L (8-55); AST (SGOT) 14 U/L (5-34); Albumin 3.7 g/dL (3.4-4.8); Alkaline Phosphatase 92 U/L (40-110); Anion Gap 10 mmol/L (10-20); BUN (Urea Nitrogen) 13 mg/dL (9.8-20.1); Bilirubin, Total 0.6 mg/dL (0.2-1.2); Calc. Creatinine Clearance 0 mL/min (70-130); Calcium 8.6 mg/dL (7.8-10.44); Carbon Dioxide 28 mmol/L (23-31); Chloride 105 mmol/L (98-107); Globulin 3.4 g/dL (2.4-3.5); Glucose 139 mg/dL (83-110); Potassium 4.8 mmol/L (3.5-5.1); Protein, Total 7.1 g/dL (5.8-8.1); Sodium 138 mmol/L (136-145)
== END 2021-10-01 15:00 ==
LOC: ERS 09:33
DX: R06.02 Shortness of breath (principal); M79.602 Pain in left arm; I13.0 Hypertensive heart and chronic kidney disease with heart failure and stage 1 through stage 4 chronic kidney disease, or unspecified chronic kidney disease; E11.22 Type 2 diabetes mellitus with diabetic chronic kidney disease; N18.9 Chronic kidney disease, unspecified; I50.9 Heart failure, unspecified; E03.9 Hypothyroidism, unspecified; M19.90 Unspecified osteoarthritis, unspecified site; F03.90 Unspecified dementia, unspecified severity, without behavioral disturbance, psychotic disturbance, mood disturbance, and anxiety; D64.9 Anemia, unspecified; Z86.73 Personal history of transient ischemic attack (TIA), and cerebral infarction without residual deficits
CPT/HCPCS: 71045; 80053; 84484; 85025; 93005

== ENCOUNTER 2021-11-02 16:19 | Emergency (ER) | payer MEDICAID, MEDICARE, OTHER ==
[2021-11-02] MEDS ORDERED: cefTRIAXone\\ROCEPHIN 1 GM VIAL ONE (16:53)
[2021-11-02] MEDS ORDERED: Acetaminophen 500 MG TAB ONE (16:53)
[2021-11-02 17:08] LABS: #Lymphocytes 0.6 thou/uL (1.20-3.40); #Monocytes 0.5 thou/uL (0.11-0.59); #Neutrophils 11.8 thou/uL (1.40-6.50); %Basophils 0.1 % (0.0-1.0); %Eosinophils 0.2 % (0.0-10.0); %Lymphocytes 4.2 % (21.0-51.0); %Monocytes 3.7 % (0.0-10.0); %Neutrophils 91.7 % (42.0-75.0); Hemoglobin 12.1 g/dL (12.0-16.0); Mean Corpuscular HGB CONC 31.1 g/dL (32.0-36.0); Mean Corpuscular Hemoglobin 28.3 pg (27.0-31.0); Mean Platelet Volume 7.9 fL (7.4-10.4); Platelet Count 213 thou/uL (130-400); RBC Distribution Width 11.8 % (11.5-14.5); Red Blood Cell (RBC) Count 4.27 mill/uL (4.20-5.40); White Blood Cell (WBC) Count 12.9 thou/uL (4.8-10.8)
[2021-11-02 17:21] LABS: INR-International Normal Ratio 1.1; PTT 29.7 sec (22.9-36.1); Prothrombin Time 14.4 sec (12.0-14.7)
[2021-11-02 17:28] LABS: ALT (SGPT) 24 U/L (8-55); AST (SGOT) 21 U/L (5-34); Albumin 3.3 g/dL (3.4-4.8); Alkaline Phosphatase 103 U/L (40-110); Anion Gap 15 mmol/L (10-20); BUN (Urea Nitrogen) 14 mg/dL (9.8-20.1); Bilirubin, Total 1.1 mg/dL (0.2-1.2); Calc. Creatinine Clearance 0 mL/min (70-130); Carbon Dioxide 21 mmol/L (23-31); Chloride 105 mmol/L (98-107); Estimated GFR 61; Globulin 3.5 g/dL (2.4-3.5); Glucose 171 mg/dL (83-110); Potassium 5.1 mmol/L (3.5-5.1); Protein, Total 6.8 g/dL (5.8-8.1); Sodium 136 mmol/L (136-145)
[2021-11-02] MEDS ORDERED: Vancomycin 1 GM/200 ML BAG ONE (18:26)
[2021-11-02 18:55] LABS: Clarity Turbid (Clear); Leukocyte 500 Leu/uL (Negative); Nitrite Negative (Negative); Protein, Urine (Dipstick) 70 mg/dL (Neg-Trace); Specific Gravity, Urine 1.017 (1.002-1.036); pH, Urine 5.5 (5.0-9.0)
[2021-11-02 18:56] LABS: Bilirubin Negative (Negative); Blood, Urine 2+ (Negative); Glucose, Urine (Dipstick) Negative (Negative); Ketone, Urine Negative (Negative)
[2021-11-02 18:57] LABS: Bacteria/HPF 4+ HPF (None Seen); Renal Epithelial 0-3 HPF (None Seen); Squamous Epithelial 0-3 HPF (0-3); Transitional Epithelial 0-3 HPF (None Seen); WBC/HPF Greater than 50 HPF (0-3)
[2021-11-02 21:13] LABS: SARS-CoV-2 NAA Rapid Test Not Detected (NotDetected)
== END 2021-11-02 20:28 | disposition short-term general hospital (02) ==
LOC: ERS 16:19
DX: A41.9 Sepsis, unspecified organism (principal); N39.0 Urinary tract infection, site not specified; E03.9 Hypothyroidism, unspecified; M19.90 Unspecified osteoarthritis, unspecified site; I13.0 Hypertensive heart and chronic kidney disease with heart failure and stage 1 through stage 4 chronic kidney disease, or unspecified chronic kidney disease; E11.22 Type 2 diabetes mellitus with diabetic chronic kidney disease; N18.9 Chronic kidney disease, unspecified; D64.9 Anemia, unspecified; Z79.899 Other long term (current) drug therapy; Z86.73 Personal history of transient ischemic attack (TIA), and cerebral infarction without residual deficits; Z79.4 Long term (current) use of insulin; Z79.84 Long term (current) use of oral hypoglycemic drugs; Z20.822 Contact with and (suspected) exposure to COVID-19
CPT/HCPCS: 36415; 71045; 80053; 81003; 81015; 83605; 83880; 84484; 85025; 85610; 85730; 87040; 87086; 93005; 94760; J0696; J3370

== ENCOUNTER 2022-01-28 20:17 | Inpatient (IN) | payer MEDICARE, MEDICAID ==
[2022-01-28 21:22] LABS: Hemoglobin 13.3 g/dL (12.0-16.0); Mean Corpuscular HGB CONC 31.2 g/dL (32.0-36.0); Mean Corpuscular Hemoglobin 28.5 pg (27.0-31.0); Mean Corpuscular Volume 91.5 fL (78.0-98.0); Mean Platelet Volume 8.7 fL (7.4-10.4); Platelet Count 182 thou/uL (130-400); Red Blood Cell (RBC) Count 4.68 mill/uL (4.20-5.40)
[2022-01-28] MEDS ORDERED: Cefepime 2 GM VIAL ONE (21:23)
[2022-01-28] MEDS ORDERED: Vancomycin 1 GM/200 ML BAG ONE (21:23)
[2022-01-28 21:39] LABS: ALT (SGPT) 9 U/L (8-55); AST (SGOT) 17 U/L (5-34); Albumin 3.5 g/dL (3.4-4.8); Alkaline Phosphatase 92 U/L (40-110); Anion Gap 16 mmol/L (10-20); BUN (Urea Nitrogen) 28 mg/dL (9.8-20.1); Bilirubin, Total 1.5 mg/dL (0.2-1.2); Calc. Creatinine Clearance 0 mL/min (70-130); Calcium 8.4 mg/dL (7.8-10.44); Carbon Dioxide 22 mmol/L (23-31); Chloride 105 mmol/L (98-107); Estimated GFR 61; Globulin 2.8 g/dL (2.4-3.5); Glucose 151 mg/dL (83-110); Potassium 4.3 mmol/L (3.5-5.1); Protein, Total 6.3 g/dL (5.8-8.1); Sodium 139 mmol/L (136-145)
[2022-01-28 21:41] LABS: Band 23 % (5-11); Lymphocytes 3 % (21-51); MDiff Complete? YES; Metamyelocyte 1 % (0-0); Monocytes 7 % (0-10); Neutrophil 66 % (42-75)
[2022-01-28] MEDS ORDERED: Ondansetron ODT 4 MG TAB PO PRN (23:19)
[2022-01-28] MEDS ORDERED: Ondansetron PF 4 MG/2 ML Vial IVP PRN (23:19)
[2022-01-28] MEDS ORDERED: Acetaminophen 650 MG Suppository PR PRN (23:19)
[2022-01-28] MEDS ORDERED: Dextrose 5% in Water 1,000 ML IV PRN (23:23)
[2022-01-28] MEDS ORDERED: Dextrose 50% Abboject 50 ML SYRINGE SLOW IVP PRN (23:23)
[2022-01-28] MEDS ORDERED: HumaLOG 300 UNITS/3 ML VIAL SC PRN ×2 (23:23)
[2022-01-29 00:29] LABS: Lactic Acid 3.1 mmol/L (0.5-2.2)
[2022-01-29] MEDS ORDERED: Sodium Chloride 0.9% 1,000 ML IV SCH (03:15)
[2022-01-29] MEDS: Sodium Chloride 0.9% 1,000 ML IV SCH ×3 (03:31→20:59)
[2022-01-29 04:00] LABS: Bilirubin Negative (Negative); Blood, Urine 1+ (Negative); Clarity Turbid (Clear); Glucose, Urine (Dipstick) Normal (Negative); Ketone, Urine Negative (Negative); Leukocyte 500 Leu/uL (Negative); Nitrite Negative (Negative); Protein, Urine (Dipstick) 50 mg/dL (Neg-Trace); Specific Gravity, Urine 1.022 (1.002-1.036); Squamous Epithelial 0-3 HPF (0-3); Urobilinogen Normal mg/dL (Less than 2); WBC/HPF Greater than 50 HPF (0-3); pH, Urine 7.5 (5.0-9.0)
[2022-01-29 04:01] LABS: Bacteria/HPF 1+ HPF (None Seen); Urine Culture Reflex Yes Yes
[2022-01-29 05:23] LABS: #Eosinphils 0.1 thou/uL (0.0-0.7); #Lymphocytes 0.6 thou/uL (1.20-3.40); #Monocytes 0.7 thou/uL (0.11-0.59); %Eosinophils 0.5 % (0.0-10.0); %Lymphocytes 3.3 % (21.0-51.0); %Monocytes 3.9 % (0.0-10.0); %Neutrophils 92.3 % (42.0-75.0); Hemoglobin 11.7 g/dL (12.0-16.0); Mean Corpuscular HGB CONC 31.5 g/dL (32.0-36.0); Mean Corpuscular Volume 91.9 fL (78.0-98.0); Mean Platelet Volume 8.3 fL (7.4-10.4); Platelet Count 175 thou/uL (130-400); RBC Distribution Width 12.1 % (11.5-14.5); Red Blood Cell (RBC) Count 4.05 mill/uL (4.20-5.40); White Blood Cell (WBC) Count 18.4 thou/uL (4.8-10.8)
[2022-01-29 05:42] LABS: Lactic Acid 2.3 mmol/L (0.5-2.2)
[2022-01-29 05:48] LABS: Anion Gap 11 mmol/L (10-20); BUN (Urea Nitrogen) 28 mg/dL (9.8-20.1); Calc. Creatinine Clearance 209 mL/min (70-130); Calcium 7.6 mg/dL (7.8-10.44); Carbon Dioxide 22 mmol/L (23-31); Chloride 107 mmol/L (98-107); Estimated GFR 62; Glucose 147 mg/dL (83-110); Potassium 4.2 mmol/L (3.5-5.1); Sodium 136 mmol/L (136-145)
[2022-01-29] MEDS: Enoxaparin Sodium 40 MG/0.4 ML SYRINGE SC SCH (09:30)
[2022-01-29] MEDS: Acetaminophen 325 MG TAB PO PRN (15:44)
[2022-01-29] MEDS ORDERED: traMADol HCl 50 MG TAB PO PRN (16:12)
[2022-01-29] MEDS: Cefepime 1 GM in Sodium Chloride 0.9% 100 ML IVPB SCH (19:49)
[2022-01-29] MEDS ORDERED: Vancomycin 1.5 GRAM/300 ML BAG 1.5 GM in Premix Bag 1 BAG IVPB SCH (21:00)
[2022-01-29] MEDS ORDERED: Vancomycin 1 GM in Premix Bag 1 BAG IVPB SCH (21:00)
[2022-01-30] MEDS: Sodium Chloride 0.9% 1,000 ML IV SCH (04:45)
[2022-01-30] MEDS: Levothyroxine Sodium 100 MCG TAB PO SCH (05:50)
[2022-01-30] MEDS: Cefepime 1 GM in Sodium Chloride 0.9% 100 ML IVPB SCH (08:11)
[2022-01-30] MEDS: Enoxaparin Sodium 40 MG/0.4 ML SYRINGE SC SCH (08:12)
[2022-01-30 08:43] LABS: #Eosinphils 0.4 thou/uL (0.0-0.7); #Monocytes 0.3 thou/uL (0.11-0.59); #Neutrophils 6.9 thou/uL (1.40-6.50); %Basophils 0.2 % (0.0-1.0); %Eosinophils 4.5 % (0.0-10.0); %Lymphocytes 11.8 % (21.0-51.0); %Monocytes 3.4 % (0.0-10.0); %Neutrophils 80.2 % (42.0-75.0); Hemoglobin 11.3 g/dL (12.0-16.0); Mean Corpuscular HGB CONC 30.8 g/dL (32.0-36.0); Mean Corpuscular Hemoglobin 28.2 pg (27.0-31.0); Mean Corpuscular Volume 91.8 fL (78.0-98.0); Mean Platelet Volume 8.7 fL (7.4-10.4); Platelet Count 171 thou/uL (130-400); RBC Distribution Width 12.2 % (11.5-14.5); White Blood Cell (WBC) Count 8.6 thou/uL (4.8-10.8)
[2022-01-30] MEDS ORDERED: Levothyroxine Sodium 100 MCG TAB PO SCH (09:00)
[2022-01-30 09:02] LABS: Anion Gap 8 mmol/L (10-20); BUN (Urea Nitrogen) 22 mg/dL (9.8-20.1); Calc. Creatinine Clearance 99 mL/min (70-130); Carbon Dioxide 23 mmol/L (23-31); Chloride 110 mmol/L (98-107); Estimated GFR 82; Glucose 124 mg/dL (83-110); Potassium 4.1 mmol/L (3.5-5.1); Sodium 137 mmol/L (136-145)
[2022-01-30] MEDS ORDERED: Cefepime 2 GM in Sodium Chloride 0.9% 100 ML IVPB SCH (20:00)
[2022-01-30] MEDS: Cefprozil 250 MG TAB PO SCH (20:37)
[2022-01-30 20:43] LABS: Vancomycin, Trough 13.1 ug/mL
[2022-01-31] MEDS: Acetaminophen 325 MG TAB PO PRN (02:44)
[2022-01-31] MEDS: Levothyroxine Sodium 100 MCG TAB PO SCH (05:40)
[2022-01-31 06:27] LABS: #Eosinphils 0.4 thou/uL (0.0-0.7); #Lymphocytes 1.3 thou/uL (1.20-3.40); #Monocytes 0.3 thou/uL (0.11-0.59); #Neutrophils 3.3 thou/uL (1.40-6.50); %Basophils 0.5 % (0.0-1.0); %Eosinophils 7.7 % (0.0-10.0); %Lymphocytes 24.8 % (21.0-51.0); %Monocytes 5.4 % (0.0-10.0); %Neutrophils 61.7 % (42.0-75.0); Hemoglobin 11.1 g/dL (12.0-16.0); Mean Corpuscular HGB CONC 30.9 g/dL (32.0-36.0); Mean Corpuscular Hemoglobin 28.1 pg (27.0-31.0); Mean Platelet Volume 8.8 fL (7.4-10.4); Platelet Count 174 thou/uL (130-400); RBC Distribution Width 12.1 % (11.5-14.5); Red Blood Cell (RBC) Count 3.94 mill/uL (4.20-5.40); White Blood Cell (WBC) Count 5.4 thou/uL (4.8-10.8)
[2022-01-31 06:42] LABS: Anion Gap 11 mmol/L (10-20); BUN (Urea Nitrogen) 14 mg/dL (9.8-20.1); Calc. Creatinine Clearance 119 mL/min (70-130); Calcium 8.1 mg/dL (7.8-10.44); Carbon Dioxide 24 mmol/L (23-31); Chloride 109 mmol/L (98-107); Estimated GFR 89; Glucose 128 mg/dL (83-110); Sodium 140 mmol/L (136-145)
[2022-01-31] MEDS: Cefprozil 250 MG TAB PO SCH ×2 (08:29→19:37)
[2022-01-31] MEDS: Enoxaparin Sodium 40 MG/0.4 ML SYRINGE SC SCH (08:31)
[2022-01-31 20:19] VITALS: BP 165/80; TEMP 98.2
== END 2022-01-31 20:00 | DRG 871 ==
LOC: ERS 20:17 → T4-A 22:27
PROVIDERS: ADMIT Student in an Organized Health Care Education/Training Program; ATTEND Internal Medicine
PROC: 3E0334Z Introduction of Serum, Toxoid and Vaccine into Peripheral Vein, Percutaneous Approach (ICD-10-PCS; principal; 2022-01-28)
DX: A41.9 Sepsis, unspecified organism (principal); G93.41 Metabolic encephalopathy; I69.951 Hemiplegia and hemiparesis following unspecified cerebrovascular disease affecting right dominant side; I13.0 Hypertensive heart and chronic kidney disease with heart failure and stage 1 through stage 4 chronic kidney disease, or unspecified chronic kidney disease; N30.00 Acute cystitis without hematuria; Z20.822 Contact with and (suspected) exposure to COVID-19; E03.9 Hypothyroidism, unspecified; I50.9 Heart failure, unspecified; I87.2 Venous insufficiency (chronic) (peripheral); M19.90 Unspecified osteoarthritis, unspecified site; K59.00 Constipation, unspecified; E11.22 Type 2 diabetes mellitus with diabetic chronic kidney disease; N18.9 Chronic kidney disease, unspecified; D63.1 Anemia in chronic kidney disease; I69.991 Dysphagia following unspecified cerebrovascular disease; R13.12 Dysphagia, oropharyngeal phase; L89.152 Pressure ulcer of sacral region, stage 2; F03.90 Unspecified dementia, unspecified severity, without behavioral disturbance, psychotic disturbance, mood disturbance, and anxiety; E66.9 Obesity, unspecified; Z90.710 Acquired absence of both cervix and uterus; Z86.16 Personal history of COVID-19; Z90.09 Acquired absence of other part of head and neck; Z98.890 Other specified postprocedural states; Z88.2 Allergy status to sulfonamides; Z88.1 Allergy status to other antibiotic agents; Z88.5 Allergy status to narcotic agent; Z88.8 Allergy status to other drugs, medicaments and biological substances; Z79.51 Long term (current) use of inhaled steroids; Z79.899 Other long term (current) drug therapy; Z79.84 Long term (current) use of oral hypoglycemic drugs; Z79.4 Long term (current) use of insulin; Z79.890 Hormone replacement therapy; Z68.37 Body mass index [BMI] 37.0-37.9, adult
CPT/HCPCS: 36415; 36416; 71045; 80048; 80053; 80202; 81001; 83605; 83880; 84484; 85025; 87040; 87086; 93005; 93970; 96374; 96375; J0692; J1650; J3370; J3490; J7050; U0003; U0005

== ENCOUNTER 2022-08-11 09:01 | Inpatient (IN) | payer MEDICARE, MEDICAID ==
[2022-08-11 09:48] LABS: #Lymphocytes 1.2 thou/uL (1.20-3.40); #Monocytes 0.6 thou/uL (0.11-0.59); #Neutrophils 6.6 thou/uL (1.40-6.50); %Basophils 0.1 % (0.0-1.0); %Eosinophils 0.1 % (0.0-10.0); %Lymphocytes 14.1 % (21.0-51.0); %Monocytes 6.6 % (0.0-10.0); Hemoglobin 11.6 g/dL (12.0-16.0); Mean Corpuscular HGB CONC 31.7 g/dL (32.0-36.0); Mean Corpuscular Volume 91.4 fl (78.0-98.0); Platelet Count 145 10x3/uL (130-400); RBC Distribution Width 12.5 % (11.5-14.5); White Blood Cell (WBC) Count 8.3 10x3/uL (4.8-10.8)
[2022-08-11] MEDS ORDERED: Cefepime 2 GM VIAL ONE (09:50)
[2022-08-11] MEDS ORDERED: Iopamidol-370 76% 500 ML MDV (1 ML CHARGE) ONE (10:06)
[2022-08-11 10:09] LABS: ALT (SGPT) 7 U/L (8-55); AST (SGOT) 12 U/L (5-34); Albumin 2.9 g/dL (3.4-4.8); Alkaline Phosphatase 73 U/L (40-110); Anion Gap 13 mmol/L (10-20); BUN (Urea Nitrogen) 18 mg/dL (9.8-20.1); Bilirubin, Total 1.2 mg/dL (0.2-1.2); Calc. Creatinine Clearance 0 mL/min (70-130); Calcium 7.2 mg/dL (7.8-10.44); Carbon Dioxide 19 mmol/L (23-31); Chloride 108 mmol/L (98-107); Estimated GFR 74; Globulin 2.5 g/dL (2.4-3.5); Glucose 146 mg/dL (83-110); Potassium 3.9 mmol/L (3.5-5.1); Protein, Total 5.4 g/dL (5.8-8.1); Sodium 136 mmol/L (136-145)
[2022-08-11 10:15] LABS: Bacteria/HPF 4+ HPF (None Seen); Bilirubin Negative (Negative); Blood, Urine 2+ (Negative); Glucose, Urine (Dipstick) Normal (Negative); Ketone, Urine 20 mg/dL (Negative); Leukocyte 500 Leu/uL (Negative); Nitrite Negative (Negative); Protein, Urine (Dipstick) 70 mg/dL (Neg-Trace); Specific Gravity, Urine 1.023 (1.002-1.036); Squamous Epithelial 0-3 HPF (0-3); WBC/HPF Greater than 50 HPF (0-3); pH, Urine 5.5 (5.0-9.0)
[2022-08-11 10:17] LABS: Clarity Turbid (Clear)
[2022-08-11] MEDS ORDERED: VANCOMYCIN 2 GRAM/500 ML BAG 2 GM in Premix Bag 1 BAG IVPB SCH (11:30)
[2022-08-11] MEDS ORDERED: Acetaminophen 325 MG TAB PO PRN (12:21)
[2022-08-11] MEDS ORDERED: Senokot S 8.6-50 MG TAB PO PRN (12:21)
[2022-08-11] MEDS ORDERED: Bisacodyl 10 MG SUPP PR PRN (12:21)
[2022-08-11] MEDS ORDERED: Ondansetron PF 4 MG/2 ML Vial IVP PRN (12:21)
[2022-08-11] MEDS ORDERED: Bisacodyl 5 MG TAB PO PRN (12:21)
[2022-08-11] MEDS ORDERED: Dextrose 50% Abboject 50 ML SYRINGE SLOW IVP PRN (12:27)
[2022-08-11] MEDS ORDERED: HumaLOG 300 UNITS/3 ML VIAL SC PRN ×2 (12:27)
[2022-08-11] MEDS ORDERED: Dextrose 5% in Water 1,000 ML IV PRN (12:27)
[2022-08-11 12:30] LABS: INR-International Normal Ratio 1.3; Prothrombin Time 16.7 sec (12.0-14.7)
[2022-08-11] MEDS ORDERED: VANCOMYCIN IVPB PRN (12:30)
[2022-08-11] MEDS ORDERED: MEROPENEM IVPB PRN (12:30)
[2022-08-11 12:31] LABS: PTT 37.8 sec (22.9-36.1)
[2022-08-11] MEDS ORDERED: Meropenem 1 GM in Sodium Chloride 0.9% 100 ML IVPB SCH (13:00)
[2022-08-11] MEDS ORDERED: Ondansetron PF 4 MG/2 ML Vial ONE (13:59)
[2022-08-11] MEDS: Lactated Ringer's 1,000 ML IV SCH (15:30)
[2022-08-11 19:24] VITALS: BMI 35.6
[2022-08-11] MEDS: Meropenem 1 GM in Sodium Chloride 0.9% 100 ML IVPB SCH (20:38)
[2022-08-11] MEDS ORDERED: Vancomycin HCl 1 GM in Sodium Chloride 0.9% 250 ML 300 ML IVPB SCH (21:00)
[2022-08-12] MEDS: Meropenem 1 GM in Sodium Chloride 0.9% 100 ML IVPB SCH (04:08)
[2022-08-12 06:18] LABS: SARS-CoV-2 NAA Rapid Test Not Detected (NotDetected)
[2022-08-12 07:00] LABS: #Lymphocytes 1.1 thou/uL (1.20-3.40); #Monocytes 0.7 thou/uL (0.11-0.59); #Neutrophils 8.7 thou/uL (1.40-6.50); %Basophils 0.3 % (0.0-1.0); %Eosinophils 0.4 % (0.0-10.0); %Monocytes 6.8 % (0.0-10.0); %Neutrophils 82.6 % (42.0-75.0); Hemoglobin 12.3 g/dL (12.0-16.0); Mean Corpuscular HGB CONC 31.7 g/dL (32.0-36.0); Mean Corpuscular Hemoglobin 29.3 pg (27.0-31.0); Mean Corpuscular Volume 92.6 fl (78.0-98.0); Mean Platelet Volume 9.1 fL (7.4-10.4); Platelet Count 145 10x3/uL (130-400); RBC Distribution Width 12.8 % (11.5-14.5); Red Blood Cell (RBC) Count 4.19 mill/uL (4.20-5.40); White Blood Cell (WBC) Count 10.5 10x3/uL (4.8-10.8)
[2022-08-12 07:31] LABS: ALT (SGPT) 12 U/L (8-55); AST (SGOT) 19 U/L (5-34); Albumin 2.4 g/dL (3.4-4.8); Alkaline Phosphatase 67 U/L (40-110); Anion Gap 13 mmol/L (10-20); BUN (Urea Nitrogen) 25 mg/dL (9.8-20.1); Bilirubin, Direct 0.4 mg/dL (0.1-0.3); Bilirubin, Total 0.6 mg/dL (0.2-1.2); Calc. Creatinine Clearance 72 mL/min (70-130); Calcium 7.3 mg/dL (7.8-10.44); Carbon Dioxide 19 mmol/L (23-31); Cardiac Risk 7.4 (Less than 4.5); Chloride 107 mmol/L (98-107); Cholesterol 111 mg/dl (< 200 Desired); Estimated GFR 65; Glucose 82 mg/dL (83-110); HDL Cholesterol 15 mg/dL (>60 Neg Risk); LDL Cholesterol, Calculated 72 mg/dL; Magnesium 1.8 mg/dL (1.6-2.6); Potassium 3.9 mmol/L (3.5-5.1); Protein, Total 4.9 g/dL (5.8-8.1); Sodium 135 mmol/L (136-145); Triglycerides 121 mg/dL (Less than 150)
[2022-08-12] MEDS: Lactated Ringer's 1,000 ML IV SCH ×4 (08:16→23:32)
[2022-08-12] MEDS ORDERED: Vancomycin 1.5 GRAM/300 ML BAG 1.5 GM in Premix Bag 1 BAG IVPB SCH (12:00)
[2022-08-12] MEDS: Clindamycin/D5W 900 MG in Premix Bag 1 BAG IVPB SCH ×2 (13:10→21:02)
[2022-08-12] MEDS: Gabapentin 100 MG CAP PO SCH ×2 (15:11→20:21)
[2022-08-12] MEDS ORDERED: Non-Formulary Item 1 EACH (Amino Acids/Protein Hydrolys [Pro-Stat Awc Liquid] 887 ML Bott PO SCH (21:00)
[2022-08-12] MEDS ORDERED: PROTEIN HYDROLYS PO SCH (21:00)
[2022-08-12] MEDS ORDERED: AMINO ACIDS PO SCH (21:00)
[2022-08-13] MEDS: Lactated Ringer's 1,000 ML IV SCH (05:12)
[2022-08-13] MEDS: Levothyroxine Sodium 100 MCG TAB PO SCH (05:18)
[2022-08-13] MEDS: Clindamycin/D5W 900 MG in Premix Bag 1 BAG IVPB SCH ×3 (05:18→21:57)
[2022-08-13 08:31] LABS: #Eosinphils 0.4 thou/uL (0.0-0.7); #Monocytes 0.4 thou/uL (0.11-0.59); #Neutrophils 4.3 thou/uL (1.40-6.50); %Basophils 0.5 % (0.0-1.0); %Eosinophils 5.9 % (0.0-10.0); %Lymphocytes 16.8 % (21.0-51.0); %Monocytes 5.7 % (0.0-10.0); %Neutrophils 71.1 % (42.0-75.0); Hemoglobin 12.2 g/dL (12.0-16.0); Mean Corpuscular HGB CONC 32.1 g/dL (32.0-36.0); Mean Corpuscular Hemoglobin 29.3 pg (27.0-31.0); Mean Corpuscular Volume 91.5 fl (78.0-98.0); Mean Platelet Volume 9.5 fL (7.4-10.4); Platelet Count 125 10x3/uL (130-400); RBC Distribution Width 12.7 % (11.5-14.5); Red Blood Cell (RBC) Count 4.15 mill/uL (4.20-5.40); White Blood Cell (WBC) Count 6.1 10x3/uL (4.8-10.8)
[2022-08-13 08:53] LABS: Anion Gap 10 mmol/L (10-20); BUN (Urea Nitrogen) 18 mg/dL (9.8-20.1); Calc. Creatinine Clearance 89 mL/min (70-130); Calcium 7.7 mg/dL (7.8-10.44); Carbon Dioxide 23 mmol/L (23-31); Chloride 108 mmol/L (98-107); Estimated GFR 84; Glucose 102 mg/dL (83-110); Magnesium 1.8 mg/dL (1.6-2.6); Potassium 3.7 mmol/L (3.5-5.1); Sodium 137 mmol/L (136-145)
[2022-08-13] MEDS ORDERED: Levothyroxine Sodium 100 MCG TAB PO SCH (09:00)
[2022-08-13] MEDS: Gabapentin 100 MG CAP PO SCH ×3 (10:01→20:24)
[2022-08-13] MEDS: Ciprofloxacin 500 MG TAB PO SCH (20:24)
[2022-08-14] MEDS: Ciprofloxacin 500 MG TAB PO SCH ×2 (04:01→20:19)
[2022-08-14] MEDS: Clindamycin/D5W 900 MG in Premix Bag 1 BAG IVPB SCH ×3 (04:01→22:09)
[2022-08-14] MEDS: Levothyroxine Sodium 100 MCG TAB PO SCH (04:01)
[2022-08-14 07:16] LABS: #Eosinphils 0.4 thou/uL (0.0-0.7); #Lymphocytes 1.1 thou/uL (1.20-3.40); #Monocytes 0.4 thou/uL (0.11-0.59); %Basophils 0.8 % (0.0-1.0); %Eosinophils 7.5 % (0.0-10.0); %Monocytes 7.9 % (0.0-10.0); %Neutrophils 60.8 % (42.0-75.0); Hemoglobin 11.4 g/dL (12.0-16.0); Mean Corpuscular HGB CONC 31.9 g/dL (32.0-36.0); Mean Corpuscular Hemoglobin 29.1 pg (27.0-31.0); Mean Corpuscular Volume 91.2 fl (78.0-98.0); Mean Platelet Volume 9.2 fL (7.4-10.4); Platelet Count 178 10x3/uL (130-400); RBC Distribution Width 12.6 % (11.5-14.5); Red Blood Cell (RBC) Count 3.93 mill/uL (4.20-5.40); White Blood Cell (WBC) Count 4.9 10x3/uL (4.8-10.8)
[2022-08-14 07:31] LABS: Anion Gap 11 mmol/L (10-20); BUN (Urea Nitrogen) 15 mg/dL (9.8-20.1); Calc. Creatinine Clearance 97 mL/min (70-130); Calcium 7.6 mg/dL (7.8-10.44); Carbon Dioxide 23 mmol/L (23-31); Chloride 108 mmol/L (98-107); Estimated GFR 87; Glucose 106 mg/dL (83-110); Magnesium 1.9 mg/dL (1.6-2.6); Potassium 3.9 mmol/L (3.5-5.1); Sodium 138 mmol/L (136-145)
[2022-08-14] MEDS: Gabapentin 100 MG CAP PO SCH ×3 (10:14→20:19)
[2022-08-15] MEDS: Ciprofloxacin 500 MG TAB PO SCH (04:09)
[2022-08-15] MEDS: Clindamycin/D5W 900 MG in Premix Bag 1 BAG IVPB SCH (05:37)
[2022-08-15] MEDS: Levothyroxine Sodium 100 MCG TAB PO SCH (05:37)
[2022-08-15 07:02] LABS: #Basophils 0.1 thou/uL (0.0-0.2); #Eosinphils 0.3 thou/uL (0.0-0.7); #Lymphocytes 1.2 thou/uL (1.20-3.40); #Monocytes 0.3 thou/uL (0.11-0.59); #Neutrophils 1.7 thou/uL (1.40-6.50); %Basophils 1.8 % (0.0-1.0); %Eosinophils 9.5 % (0.0-10.0); %Lymphocytes 33.5 % (21.0-51.0); %Monocytes 7.6 % (0.0-10.0); %Neutrophils 47.7 % (42.0-75.0); Hemoglobin 11.4 g/dL (12.0-16.0); Mean Corpuscular HGB CONC 31.8 g/dL (32.0-36.0); Mean Corpuscular Hemoglobin 28.8 pg (27.0-31.0); Mean Corpuscular Volume 90.5 fl (78.0-98.0); Mean Platelet Volume 8.7 fL (7.4-10.4); Platelet Count 189 10x3/uL (130-400); RBC Distribution Width 12.5 % (11.5-14.5); Red Blood Cell (RBC) Count 3.97 mill/uL (4.20-5.40); White Blood Cell (WBC) Count 3.6 10x3/uL (4.8-10.8)
[2022-08-15 07:22] LABS: Anion Gap 11 mmol/L (10-20); BUN (Urea Nitrogen) 10 mg/dL (9.8-20.1); Calc. Creatinine Clearance 104 mL/min (70-130); Calcium 7.6 mg/dL (7.8-10.44); Carbon Dioxide 21 mmol/L (23-31); Chloride 109 mmol/L (98-107); Estimated GFR 89; Glucose 101 mg/dL (83-110); Potassium 4.1 mmol/L (3.5-5.1); Sodium 137 mmol/L (136-145)
[2022-08-15 07:25] VITALS: BP 157/84; TEMP 97.5
[2022-08-15] MEDS: Gabapentin 100 MG CAP PO SCH (08:43)
== END 2022-08-15 13:10 | DRG 871 ==
LOC: ERS 09:01 → ERHOLD 12:32 → T4-A 16:14
PROVIDERS: ADMIT Hospitalist; ATTEND Hospitalist
DX: A41.9 Sepsis, unspecified organism (principal); G93.41 Metabolic encephalopathy; L89.153 Pressure ulcer of sacral region, stage 3; N30.00 Acute cystitis without hematuria; L03.115 Cellulitis of right lower limb; I69.351 Hemiplegia and hemiparesis following cerebral infarction affecting right dominant side; I10 Essential (primary) hypertension; Z20.822 Contact with and (suspected) exposure to COVID-19; B96.20 Unspecified Escherichia coli [E. coli] as the cause of diseases classified elsewhere; G30.9 Alzheimer's disease, unspecified; F02.80 Dementia in other diseases classified elsewhere, unspecified severity, without behavioral disturbance, psychotic disturbance, mood disturbance, and anxiety; Z88.1 Allergy status to other antibiotic agents; Z88.5 Allergy status to narcotic agent; Z88.2 Allergy status to sulfonamides; Z88.8 Allergy status to other drugs, medicaments and biological substances; Z79.890 Hormone replacement therapy; Z90.710 Acquired absence of both cervix and uterus; Z90.49 Acquired absence of other specified parts of digestive tract
CPT/HCPCS: 36415; 36416; 51701; 70450; 71045; 71260; 74178; 80048; 80053; 80061; 80076; 81003; 81015; 83036; 83605; 83735; 84443; 84484; 85025; 85610; 85730; 86140; 87040; 87077; 87081; 87086; 87149; 87186; 93005; 96365; 96366; 96367; 97139; J0692; J1650; J2185; J2405; J3370; J3490; J7120; Q9967

== ENCOUNTER 2022-08-30 14:09 | Inpatient (IN) | payer MEDICARE, MEDICAID ==
[2022-08-30 15:14] LABS: #Basophils 0.1 thou/uL (0.0-0.2); #Eosinphils 0.1 thou/uL (0.0-0.7); #Monocytes 0.6 thou/uL (0.11-0.59); #Neutrophils 5.6 thou/uL (1.40-6.50); %Basophils 0.7 % (0.0-1.0); %Eosinophils 1.3 % (0.0-10.0); %Monocytes 8.4 % (0.0-10.0); %Neutrophils 76.6 % (42.0-75.0); Hemoglobin 13.8 g/dL (12.0-16.0); Mean Corpuscular HGB CONC 33.7 g/dL (32.0-36.0); Mean Corpuscular Hemoglobin 31.1 pg (27.0-31.0); Mean Corpuscular Volume 92.3 fl (78.0-98.0); Mean Platelet Volume 9.3 fL (7.4-10.4); Platelet Count 133 10x3/uL (130-400); RBC Distribution Width 12.9 % (11.5-14.5); Red Blood Cell (RBC) Count 4.42 mill/uL (4.20-5.40); White Blood Cell (WBC) Count 7.3 10x3/uL (4.8-10.8)
[2022-08-30 15:36] LABS: ALT (SGPT) 286 U/L (8-55); AST (SGOT) 470 U/L (5-34); Albumin 3.3 g/dL (3.4-4.8); Alkaline Phosphatase 302 U/L (40-110); Anion Gap 13 mmol/L (10-20); BUN (Urea Nitrogen) 15 mg/dL (9.8-20.1); Calc. Creatinine Clearance 0 mL/min (70-130); Calcium 8.5 mg/dL (7.8-10.44); Carbon Dioxide 22 mmol/L (23-31); Chloride 105 mmol/L (98-107); Estimated GFR 86; Globulin 3.2 g/dL (2.4-3.5); Glucose 158 mg/dL (83-110); Lipase 12 U/L (8-78); Potassium 4.4 mmol/L (3.5-5.1); Protein, Total 6.5 g/dL (5.8-8.1); Sodium 136 mmol/L (136-145)
[2022-08-30] MEDS ORDERED: Loperamide HCl 2 MG CAP PO PRN (16:04)
[2022-08-30] MEDS ORDERED: Polyethylene Glycol 3350 17 GM Packet PO PRN (16:04)
[2022-08-30] MEDS ORDERED: HumaLOG 300 UNITS/3 ML VIAL SC PRN (16:35)
[2022-08-30] MEDS ORDERED: Dextrose 5% in Water 1,000 ML IV PRN (16:35)
[2022-08-30] MEDS ORDERED: Dextrose 50% Abboject 50 ML SYRINGE SLOW IVP PRN (16:35)
[2022-08-30] MEDS ORDERED: Nitroglycerin 0.4 MG TAB (25 Tab Bottle) SL PRN (16:40)
[2022-08-30 18:45] LABS: Troponin I Less than 0.010 ng/mL (< 0.028)
[2022-08-30 21:23] LABS: Troponin I Less than 0.010 ng/mL (< 0.028)
[2022-08-30] MEDS ORDERED: Famotidine 20 MG TAB ONE (21:38)
[2022-08-30] MEDS: Gabapentin 100 MG CAP PO SCH (21:45)
[2022-08-30] MEDS: Famotidine 20 MG TAB PO SCH (21:55)
[2022-08-31] MEDS: Levothyroxine Sodium 100 MCG TAB PO SCH (07:53)
[2022-08-31 08:32] LABS: #Lymphocytes 1.3 thou/uL (1.20-3.40); #Monocytes 1.2 thou/uL (0.11-0.59); #Neutrophils 7.7 thou/uL (1.40-6.50); %Basophils 0.4 % (0.0-1.0); %Eosinophils 0.2 % (0.0-10.0); %Lymphocytes 12.9 % (21.0-51.0); %Neutrophils 74.5 % (42.0-75.0); Hemoglobin 12.6 g/dL (12.0-16.0); Mean Corpuscular HGB CONC 31.5 g/dL (32.0-36.0); Mean Corpuscular Hemoglobin 28.8 pg (27.0-31.0); Mean Corpuscular Volume 91.5 fl (78.0-98.0); Mean Platelet Volume 8.6 fL (7.4-10.4); Platelet Count 134 10x3/uL (130-400); RBC Distribution Width 13.3 % (11.5-14.5); Red Blood Cell (RBC) Count 4.37 mill/uL (4.20-5.40); White Blood Cell (WBC) Count 10.3 10x3/uL (4.8-10.8)
[2022-08-31 08:55] LABS: INR-International Normal Ratio 1.3; PTT 33.2 sec (22.9-36.1); Prothrombin Time 16.4 sec (12.0-14.7)
[2022-08-31] MEDS: Aspirin 81 mg Enteric Coated Tablet PO SCH (09:35)
[2022-08-31] MEDS: Gabapentin 100 MG CAP PO SCH ×3 (09:35→21:09)
[2022-08-31] MEDS: Famotidine 20 MG TAB PO SCH ×2 (09:35→21:09)
[2022-08-31] MEDS: Insulin Glargine 30 UNITS/0.3 ML VIAL SC SCH (09:36)
[2022-08-31 09:37] LABS: ALT (SGPT) 210 U/L (8-55); AST (SGOT) 233 U/L (5-34); Alkaline Phosphatase 320 U/L (40-110); Anion Gap 16 mmol/L (10-20); BUN (Urea Nitrogen) 20 mg/dL (9.8-20.1); Bilirubin, Total 5.4 mg/dL (0.2-1.2); Calc. Creatinine Clearance 94 mL/min (70-130); Calcium 8.5 mg/dL (7.8-10.44); Carbon Dioxide 19 mmol/L (23-31); Chloride 107 mmol/L (98-107); Estimated GFR 86; Glucose 107 mg/dL (83-110); Potassium 4.5 mmol/L (3.5-5.1); Sodium 137 mmol/L (136-145)
[2022-08-31 12:22] LABS: Clarity Hazy (Clear); Glucose, Urine (Dipstick) Unable to Interpret mg/dL (Negative); Ketone, Urine Unable to Interpret mg/dL (Negative); Leukocyte Unable to Interpret Leu/uL (Negative); Nitrite Unable to Interpret (Negative); Protein, Urine (Dipstick) Unable to Interpret mg/dL (Neg-Trace); Specific Gravity, Urine 1.028 (1.002-1.036); Urobilinogen UNABLE TO INTERPRET mg/dL (Less than 2); pH, Urine 5.8 (5.0-9.0)
[2022-08-31 12:23] LABS: Bilirubin Unable to Interpret (Negative); Blood, Urine Unable to Interpret (Negative)
[2022-08-31 12:38] LABS: RBC/HPF 0-3 HPF (0-3)
[2022-08-31 12:39] LABS: Bacteria/HPF 2+ HPF (None Seen); Squamous Epithelial 21-50 HPF (0-3)
[2022-08-31] MEDS ORDERED: Sodium Chloride 0.9% 500 ML IV SCH (13:00)
[2022-08-31] MEDS: cefTRIAXone\\ROCEPHIN 1 GM in Sodium Chloride 0.9% 100 ML IVPB SCH (13:35)
[2022-09-01] MEDS: Levothyroxine Sodium 100 MCG TAB PO SCH (05:48)
[2022-09-01] MEDS: Gabapentin 100 MG CAP PO SCH ×3 (08:17→20:41)
[2022-09-01] MEDS: Aspirin 81 mg Enteric Coated Tablet PO SCH (08:18)
[2022-09-01] MEDS: Insulin Glargine 30 UNITS/0.3 ML VIAL SC SCH (08:18)
[2022-09-01] MEDS: Famotidine 20 MG TAB PO SCH ×2 (08:18→20:41)
[2022-09-01 11:17] LABS: ALT (SGPT) 131 U/L (8-55); AST (SGOT) 115 U/L (5-34); Albumin 2.7 g/dL (3.4-4.8); Alkaline Phosphatase 329 U/L (40-110); Anion Gap 14 mmol/L (10-20); BUN (Urea Nitrogen) 21 mg/dL (9.8-20.1); Bilirubin, Total 4.8 mg/dL (0.2-1.2); Calc. Creatinine Clearance 95 mL/min (70-130); Calcium 8.4 mg/dL (7.8-10.44); Carbon Dioxide 20 mmol/L (23-31); Chloride 105 mmol/L (98-107); Estimated GFR 86; Globulin 2.7 g/dL (2.4-3.5); Glucose 131 mg/dL (83-110); Protein, Total 5.4 g/dL (5.8-8.1); Sodium 135 mmol/L (136-145)
[2022-09-01 11:23] VITALS: BMI 32.3
[2022-09-01] MEDS: cefTRIAXone\\ROCEPHIN 1 GM in Sodium Chloride 0.9% 100 ML IVPB SCH (14:05)
[2022-09-02] MEDS: Levothyroxine Sodium 100 MCG TAB PO SCH (05:29)
[2022-09-02 07:01] LABS: INR-International Normal Ratio 1.2; Prothrombin Time 15.9 sec (12.0-14.7)
[2022-09-02 07:11] LABS: ALT (SGPT) 110 U/L (8-55); AST (SGOT) 106 U/L (5-34); Albumin 2.6 g/dL (3.4-4.8); Alkaline Phosphatase 402 U/L (40-110); Anion Gap 14 mmol/L (10-20); BUN (Urea Nitrogen) 18 mg/dL (9.8-20.1); Bilirubin, Total 4.3 mg/dL (0.2-1.2); Calc. Creatinine Clearance 92 mL/min (70-130); Calcium 8.4 mg/dL (7.8-10.44); Carbon Dioxide 22 mmol/L (23-31); Chloride 103 mmol/L (98-107); Estimated GFR 82; Globulin 2.7 g/dL (2.4-3.5); Glucose 105 mg/dL (83-110); Iron 30 ug/dL (50-170); Iron Binding Capacity, Total 163 mcg/dL (265-497); Protein, Total 5.3 g/dL (5.8-8.1); Sodium 135 mmol/L (136-145)
[2022-09-02 07:28] LABS: Ferritin 343.23 ng/mL (10-291)
[2022-09-02 07:42] LABS: HBCM Index 0.07 S/CO (0-0.79); HBSAg Index 0.19 S/CO (0-0.99); Hep A IgM AB Non-Reactive S/CO (NonReactive); Hep A IgM S/CO 0.26 S/CO (0-0.79); Hep B Surf Ag Non-Reactive S/CO (NonReactive); Hep C IgG Ab Non-Reactive S/CO (NonReactive); Hep C Index 0.17 S/CO (0-0.79); Hepatitis B Core IgM Abs Non-Reactive S/CO (NonReactive)
[2022-09-02] MEDS: Famotidine 20 MG TAB PO SCH ×2 (08:32→21:49)
[2022-09-02] MEDS: Aspirin 81 mg Enteric Coated Tablet PO SCH (08:32)
[2022-09-02] MEDS: Gabapentin 100 MG CAP PO SCH ×3 (08:32→21:49)
[2022-09-02] MEDS: Insulin Glargine 30 UNITS/0.3 ML VIAL SC SCH (09:59)
[2022-09-02] MEDS: cefTRIAXone\\ROCEPHIN 1 GM in Sodium Chloride 0.9% 100 ML IVPB SCH (13:11)
[2022-09-02] MEDS ORDERED: Sevoflurane 250 ML INH ANEST BOTTLE ONE (22:43)
[2022-09-03] MEDS: Levothyroxine Sodium 100 MCG TAB PO SCH (00:47)
[2022-09-03 06:55] LABS: ALT (SGPT) 93 U/L (8-55); AST (SGOT) 80 U/L (5-34); Albumin 2.7 g/dL (3.4-4.8); Alkaline Phosphatase 462 U/L (40-110); Anion Gap 15 mmol/L (10-20); BUN (Urea Nitrogen) 15 mg/dL (9.8-20.1); Bilirubin, Total 3.9 mg/dL (0.2-1.2); Calc. Creatinine Clearance 103 mL/min (70-130); Calcium 8.4 mg/dL (7.8-10.44); Carbon Dioxide 20 mmol/L (23-31); Chloride 103 mmol/L (98-107); Estimated GFR 87; Globulin 3.1 g/dL (2.4-3.5); Glucose 83 mg/dL (83-110); Potassium 4.2 mmol/L (3.5-5.1); Protein, Total 5.8 g/dL (5.8-8.1); Sodium 134 mmol/L (136-145)
[2022-09-03] MEDS ORDERED: fentaNYL PF 100 MCG/2 ML SYRINGE ONE (06:55)
[2022-09-03] MEDS: Gabapentin 100 MG CAP PO SCH ×3 (07:14→20:59)
[2022-09-03] MEDS: Famotidine 20 MG TAB PO SCH ×2 (07:14→20:59)
[2022-09-03] MEDS: Aspirin 81 mg Enteric Coated Tablet PO SCH (07:14)
[2022-09-03] MEDS ORDERED: Sodium Chloride 0.9% 100 ML ONE (08:09)
[2022-09-03] MEDS ORDERED: cefTRIAXone (ROCEPHIN) 1 GM VIAL ONE (08:09)
[2022-09-03] MEDS ORDERED: Bupivacaine/Epinephrine 0.25% 30 ML VIAL ONE (08:14)
[2022-09-03] MEDS ORDERED: PHENYLEPHRINE-NS 100 MCG/ML 10 ML SYRINGE ONE (08:28)
[2022-09-03] MEDS ORDERED: Vasopressin 20 UNITS/ML VIAL ONE (08:28)
[2022-09-03] MEDS ORDERED: Phenylephrine 10 MG/ML VIAL ONE (08:29)
[2022-09-03] MEDS ORDERED: Glycopyrrolate 0.2 MG/ML 5 ML SYRINGE ONE (08:35)
[2022-09-03] MEDS ORDERED: Rocuronium Bromide 10 MG/ML (10ML VIAL) ONE (08:35)
[2022-09-03] MEDS ORDERED: Ondansetron PF 4 MG/2 ML Vial ONE (08:35)
[2022-09-03] MEDS ORDERED: Lidocaine 1% PF 5 ML VIAL ONE (08:35)
[2022-09-03] MEDS ORDERED: NEOSTIGMINE 3 MG/3 ML SYR 3 MG/3 ML SYRINGE ONE (08:35)
[2022-09-03] MEDS ORDERED: Dexamethasone 20 MG/5 ML VIAL ONE (08:35)
[2022-09-03] MEDS ORDERED: PROPOFOL 200 MG/20 ML VIAL ONE (08:35)
[2022-09-03] MEDS ORDERED: Iopamidol 15 ML ONE ×2 (10:58)
[2022-09-03] MEDS ORDERED: Indomethacin 50 MG SUPP ONE ×2 (10:59)
[2022-09-03] MEDS ORDERED: Ondansetron HCl/PF 4 MG/2 ML Vial IVP PRN (12:03)
[2022-09-03] MEDS ORDERED: Promethazine HCl 25 MG/ML VIAL IM PRN (12:03)
[2022-09-03] MEDS: cefTRIAXone\\ROCEPHIN 1 GM in Sodium Chloride 0.9% 100 ML IVPB SCH (12:09)
[2022-09-03] MEDS ORDERED: fentaNYL 50 mcg/mL 1 mL Vial ONE (12:12)
[2022-09-04] MEDS: Levothyroxine Sodium 100 MCG TAB PO SCH (05:14)
[2022-09-04 05:35] LABS: Hemoglobin 10.9 g/dL (12.0-16.0); Mean Corpuscular HGB CONC 31.9 g/dL (32.0-36.0); Mean Corpuscular Hemoglobin 29.4 pg (27.0-31.0); Mean Corpuscular Volume 92.2 fl (78.0-98.0); Mean Platelet Volume 8.8 fL (7.4-10.4); Platelet Count 143 10x3/uL (130-400); RBC Distribution Width 13.5 % (11.5-14.5); White Blood Cell (WBC) Count 9.2 10x3/uL (4.8-10.8)
[2022-09-04 05:59] LABS: ALT (SGPT) 67 U/L (8-55); AST (SGOT) 59 U/L (5-34); Albumin 2.5 g/dL (3.4-4.8); Alkaline Phosphatase 381 U/L (40-110); Anion Gap 11 mmol/L (10-20); BUN (Urea Nitrogen) 21 mg/dL (9.8-20.1); Bilirubin, Total 2.2 mg/dL (0.2-1.2); Calc. Creatinine Clearance 92 mL/min (70-130); Calcium 7.9 mg/dL (7.8-10.44); Carbon Dioxide 25 mmol/L (23-31); Chloride 104 mmol/L (98-107); Estimated GFR 82; Globulin 2.8 g/dL (2.4-3.5); Glucose 122 mg/dL (83-110); Potassium 4.1 mmol/L (3.5-5.1); Protein, Total 5.3 g/dL (5.8-8.1); Sodium 136 mmol/L (136-145)
[2022-09-04] MEDS: Sodium Chloride 0.9% 1,000 ML IV SCH ×2 (06:36→15:33)
[2022-09-04] MEDS: Insulin Glargine 30 UNITS/0.3 ML VIAL SC SCH (09:25)
[2022-09-04] MEDS: Famotidine 20 MG TAB PO SCH ×2 (09:25→20:12)
[2022-09-04] MEDS: Aspirin 81 mg Enteric Coated Tablet PO SCH (09:25)
[2022-09-04] MEDS: Gabapentin 100 MG CAP PO SCH ×3 (09:25→20:12)
[2022-09-04 12:35] LABS: ANA Symphony (Qualitative) Negative (Negative); ANA Symphony (Quantitative) 0.3 Ratio (< 0.7 Negative); EliA Vaculitis New Method **** NEW METHOD ****; Mitochondrial Ab 1.6 U/mL (<4 Negative); dsDNA IgG Antibody 1.2 IU/mL (<10 Negative)
[2022-09-04] MEDS: cefTRIAXone\\ROCEPHIN 1 GM in Sodium Chloride 0.9% 100 ML IVPB SCH (13:10)
[2022-09-05] MEDS ORDERED: Sodium Chloride 0.9% 500 ML IV SCH (01:00)
[2022-09-05] MEDS: Levothyroxine Sodium 100 MCG TAB PO SCH (05:09)
[2022-09-05 05:51] LABS: ALT (SGPT) 51 U/L (8-55); AST (SGOT) 40 U/L (5-34); Albumin 2.4 g/dL (3.4-4.8); Alkaline Phosphatase 309 U/L (40-110); Anion Gap 11 mmol/L (10-20); BUN (Urea Nitrogen) 25 mg/dL (9.8-20.1); Bilirubin, Total 2.2 mg/dL (0.2-1.2); Calc. Creatinine Clearance 92 mL/min (70-130); Calcium 7.3 mg/dL (7.8-10.44); Carbon Dioxide 23 mmol/L (23-31); Chloride 106 mmol/L (98-107); Estimated GFR 82; Globulin 2.7 g/dL (2.4-3.5); Glucose 270 mg/dL (83-110); Potassium 4.4 mmol/L (3.5-5.1); Protein, Total 5.1 g/dL (5.8-8.1); Sodium 136 mmol/L (136-145)
[2022-09-05] MEDS ORDERED: Dextrose 10% in Water 1,000 ML IV SCH (06:45)
[2022-09-05] MEDS: Aspirin 81 mg Enteric Coated Tablet PO SCH (10:22)
[2022-09-05] MEDS: Famotidine 20 MG TAB PO SCH ×2 (10:23→20:23)
[2022-09-05] MEDS: Gabapentin 100 MG CAP PO SCH ×3 (10:23→20:23)
[2022-09-05] MEDS: cefTRIAXone\\ROCEPHIN 1 GM in Sodium Chloride 0.9% 100 ML IVPB SCH (12:46)
[2022-09-05 13:31] LABS: Bilirubin Unable to Interpret (Negative); Blood, Urine Unable to Interpret (Negative); Clarity Cloudy (Clear); Glucose, Urine (Dipstick) Unable to Interpret mg/dL (Negative); Ketone, Urine Unable to Interpret mg/dL (Negative); Leukocyte Unable to Interpret (Negative); Nitrite Unable to Interpret (Negative); Protein, Urine (Dipstick) Unable to Interpret mg/dL (Neg-Trace); Specific Gravity, Urine 1.018 (1.002-1.036); Urobilinogen UNABLE TO INTERPRET mg/dL (Less than 2); pH, Urine 5.9 (5.0-9.0)
[2022-09-05 13:33] LABS: Bacteria/HPF 2+ HPF (None Seen); CAUTI Indications for Culture Alt mental st,lethar; RBC/HPF None Seen HPF (0-3); WBC/HPF 21-50 HPF (0-3)
[2022-09-05 13:34] LABS: Urine Culture Reflex Yes Yes
[2022-09-05] MEDS: Dextrose 5%-Lactated Ringers 1,000 ML IV SCH (17:23)
[2022-09-05] MEDS: Cefepime 1 GM in Sodium Chloride 0.9% 100 ML IVPB SCH (20:23)
[2022-09-06] MEDS: Levothyroxine Sodium 100 MCG TAB PO SCH (05:27)
[2022-09-06] MEDS: Dextrose 5%-Lactated Ringers 1,000 ML IV SCH ×2 (05:28→17:51)
[2022-09-06 05:53] LABS: Hemoglobin 9.8 g/dL (12.0-16.0); Mean Corpuscular HGB CONC 32.6 g/dL (32.0-36.0); Mean Corpuscular Hemoglobin 30.2 pg (27.0-31.0); Mean Corpuscular Volume 92.6 fl (78.0-98.0); Mean Platelet Volume 8.6 fL (7.4-10.4); Platelet Count 162 10x3/uL (130-400); RBC Distribution Width 13.5 % (11.5-14.5); Red Blood Cell (RBC) Count 3.24 mill/uL (4.20-5.40)
[2022-09-06 06:17] LABS: ALT (SGPT) 35 U/L (8-55); AST (SGOT) 34 U/L (5-34); Albumin 2.3 g/dL (3.4-4.8); Alkaline Phosphatase 237 U/L (40-110); Anion Gap 11 mmol/L (10-20); BUN (Urea Nitrogen) 33 mg/dL (9.8-20.1); Bilirubin, Total 1.6 mg/dL (0.2-1.2); Calc. Creatinine Clearance 82 mL/min (70-130); Calcium 7.1 mg/dL (7.8-10.44); Carbon Dioxide 21 mmol/L (23-31); Chloride 108 mmol/L (98-107); Estimated GFR 71; Globulin 2.6 g/dL (2.4-3.5); Glucose 118 mg/dL (83-110); Potassium 4.4 mmol/L (3.5-5.1); Protein, Total 4.9 g/dL (5.8-8.1); Sodium 136 mmol/L (136-145)
[2022-09-06] MEDS: Aspirin 81 mg Enteric Coated Tablet PO SCH (08:19)
[2022-09-06] MEDS: Cefepime 1 GM in Sodium Chloride 0.9% 100 ML IVPB SCH ×2 (08:19→20:50)
[2022-09-06] MEDS: Famotidine 20 MG TAB PO SCH ×2 (08:19→20:51)
[2022-09-06] MEDS: Gabapentin 100 MG CAP PO SCH ×3 (08:22→20:51)
[2022-09-06] MEDS: Acetaminophen 325 MG TAB PO PRN (20:51)
[2022-09-07] MEDS: Levothyroxine Sodium 100 MCG TAB PO SCH (05:23)
[2022-09-07 06:16] LABS: Hemoglobin 8.7 g/dL (12.0-16.0); Mean Corpuscular HGB CONC 31.2 g/dL (32.0-36.0); Mean Corpuscular Hemoglobin 29.3 pg (27.0-31.0); Mean Corpuscular Volume 93.7 fl (78.0-98.0); Platelet Count 137 10x3/uL (130-400); RBC Distribution Width 13.4 % (11.5-14.5); Red Blood Cell (RBC) Count 2.96 mill/uL (4.20-5.40); White Blood Cell (WBC) Count 14.5 10x3/uL (4.8-10.8)
[2022-09-07] MEDS: Famotidine 20 MG TAB PO SCH ×2 (08:37→21:17)
[2022-09-07] MEDS: Aspirin 81 mg Enteric Coated Tablet PO SCH (08:37)
[2022-09-07] MEDS: Vancomycin HCl 125 MG/5 ML (BATCHED) UDCUP PO SCH ×3 (08:37→21:39)
[2022-09-07] MEDS: Gabapentin 100 MG CAP PO SCH ×3 (08:38→21:17)
[2022-09-07] MEDS: Dextrose 5%-Lactated Ringers 1,000 ML IV SCH ×2 (08:39→21:17)
[2022-09-07] MEDS: Cefepime 1 GM in Sodium Chloride 0.9% 100 ML IVPB SCH ×2 (08:39→21:15)
[2022-09-07 09:05] LABS: Band 34 % (5-11); Hypochromia SLIGHT = 6-15 cells (100X) (0-5/hpf); Lymphocytes 10 % (21-51); MDiff Complete? YES; Monocytes 1 % (0-10); Neutrophil 54 % (42-75); Platelet Morphology Comment Appears Adequate; Polychromasia SLIGHT = 2-3 cells (100X) (0-2/hpf); Reactive Lymphocytes 1 % (0-10)
[2022-09-07] MEDS: Ondansetron PF 4 MG/2 ML Vial IVP PRN (14:28)
[2022-09-07] MEDS: Acetaminophen 325 MG TAB PO PRN (14:29)
[2022-09-08] MEDS: Vancomycin HCl 125 MG/5 ML (BATCHED) UDCUP PO SCH ×2 (04:04→09:15)
[2022-09-08 04:57] LABS: Hemoglobin 8.8 g/dL (12.0-16.0); Mean Corpuscular HGB CONC 30.8 g/dL (32.0-36.0); Mean Corpuscular Hemoglobin 29.1 pg (27.0-31.0); Mean Corpuscular Volume 94.5 fl (78.0-98.0); Platelet Count 132 10x3/uL (130-400); RBC Distribution Width 13.4 % (11.5-14.5); Red Blood Cell (RBC) Count 3.04 mill/uL (4.20-5.40); White Blood Cell (WBC) Count 16.3 10x3/uL (4.8-10.8)
[2022-09-08] MEDS: Levothyroxine Sodium 100 MCG TAB PO SCH (05:10)
[2022-09-08 05:16] LABS: Anion Gap 11 mmol/L (10-20); BUN (Urea Nitrogen) 27 mg/dL (9.8-20.1); Calc. Creatinine Clearance 104 mL/min (70-130); Calcium 7.2 mg/dL (7.8-10.44); Carbon Dioxide 21 mmol/L (23-31); Chloride 110 mmol/L (98-107); Estimated GFR 88; Glucose 107 mg/dL (83-110); Potassium 3.9 mmol/L (3.5-5.1); Sodium 138 mmol/L (136-145)
[2022-09-08] MEDS: Aspirin 81 mg Enteric Coated Tablet PO SCH (09:12)
[2022-09-08] MEDS: Famotidine 20 MG TAB PO SCH ×2 (09:12→20:20)
[2022-09-08] MEDS: Gabapentin 100 MG CAP PO SCH ×3 (09:12→20:20)
[2022-09-08] MEDS: Ondansetron PF 4 MG/2 ML Vial IVP PRN (09:15)
[2022-09-08] MEDS: Dextrose 5%-Lactated Ringers 1,000 ML IV SCH (11:35)
[2022-09-09] MEDS: Dextrose 5%-Lactated Ringers 1,000 ML IV SCH (01:20)
[2022-09-09] MEDS: Levothyroxine Sodium 100 MCG TAB PO SCH (05:26)
[2022-09-09 07:04] LABS: #Eosinphils 0.4 thou/uL (0.0-0.7); #Monocytes 0.6 thou/uL (0.11-0.59); #Neutrophils 8.4 thou/uL (1.40-6.50); %Basophils 0.4 % (0.0-1.0); %Eosinophils 3.6 % (0.0-10.0); %Lymphocytes 13.1 % (21.0-51.0); %Monocytes 5.2 % (0.0-10.0); %Neutrophils 76.4 % (42.0-75.0); Hemoglobin 8.5 g/dL (12.0-16.0); Mean Corpuscular HGB CONC 29.6 g/dL (32.0-36.0); Mean Corpuscular Hemoglobin 28.1 pg (27.0-31.0); Mean Corpuscular Volume 94.7 fl (78.0-98.0); Mean Platelet Volume 11.6 fL (7.4-10.4); Platelet Count 133 10x3/uL (130-400); RBC Distribution Width 14.9 % (11.5-14.5); Red Blood Cell (RBC) Count 3.03 mill/uL (4.20-5.40)
[2022-09-09 07:58] VITALS: TEMP 97.7
[2022-09-09 08:14] LABS: Anisocytosis SLIGHT = 6-15 cells HPF (0-5); CellaVision Operator ID LAB.GE; Macrocytosis SLIGHT = 6-15 cells HPF (0-5); Platelet Morphology Comment Platelets Normal; Polychromasia SLIGHT = 2-3 cells HPF (0-2)
[2022-09-09] MEDS: Famotidine 20 MG TAB PO SCH (09:54)
[2022-09-09] MEDS: Gabapentin 100 MG CAP PO SCH (09:54)
[2022-09-09] MEDS: Aspirin 81 mg Enteric Coated Tablet PO SCH (09:54)
[2022-09-09 12:06] VITALS: BP 125/65
== END 2022-09-09 13:07 | DRG 417 ==
LOC: ERS 14:09 → ERHOLD 16:02 → 2NO 08-31 01:08 → OBSVTOIN 09-01 11:17 → T4-A 09-01 16:14
PROVIDERS: ADMIT Internal Medicine; ATTEND Internal Medicine
PROC: 0FT44ZZ Resection of Gallbladder, Percutaneous Endoscopic Approach (ICD-10-PCS; principal; 2022-09-03)
PROC: 02HV33Z Insertion of Infusion Device into Superior Vena Cava, Percutaneous Approach (ICD-10-PCS; 2022-09-03)
PROC: 0F798ZZ Dilation of Common Bile Duct, Via Natural or Artificial Opening Endoscopic (ICD-10-PCS; 2022-09-03)
PROC: BF101ZZ Fluoroscopy of Bile Ducts using Low Osmolar Contrast (ICD-10-PCS; 2022-09-03)
DX: K80.12 Calculus of gallbladder with acute and chronic cholecystitis without obstruction (principal); Z66 Do not resuscitate; G93.41 Metabolic encephalopathy; A04.72 Enterocolitis due to Clostridium difficile, not specified as recurrent; E87.1 Hypo-osmolality and hyponatremia; I50.32 Chronic diastolic (congestive) heart failure; N39.0 Urinary tract infection, site not specified; I13.0 Hypertensive heart and chronic kidney disease with heart failure and stage 1 through stage 4 chronic kidney disease, or unspecified chronic kidney disease; N18.2 Chronic kidney disease, stage 2 (mild); R33.9 Retention of urine, unspecified; F02.80 Dementia in other diseases classified elsewhere, unspecified severity, without behavioral disturbance, psychotic disturbance, mood disturbance, and anxiety; G30.9 Alzheimer's disease, unspecified; E11.22 Type 2 diabetes mellitus with diabetic chronic kidney disease; E03.9 Hypothyroidism, unspecified; R74.01 Elevation of levels of liver transaminase levels; E11.649 Type 2 diabetes mellitus with hypoglycemia without coma; Z88.1 Allergy status to other antibiotic agents; Z88.5 Allergy status to narcotic agent; Z88.2 Allergy status to sulfonamides; Z88.8 Allergy status to other drugs, medicaments and biological substances; Z86.73 Personal history of transient ischemic attack (TIA), and cerebral infarction without residual deficits; Z79.899 Other long term (current) drug therapy; Z79.890 Hormone replacement therapy; Z79.4 Long term (current) use of insulin; Z90.49 Acquired absence of other specified parts of digestive tract; Z90.710 Acquired absence of both cervix and uterus; Z98.890 Other specified postprocedural states
CPT/HCPCS: 36415; 36416; 70450; 71045; 74018; 74181; 74330; 76700; 78227; 80048; 80053; 80074; 81001; 82390; 82728; 83516; 83540; 83550; 83690; 83880; 84484; 85025; 85027; 85610; 85730; 86015; 86038; 86225; 86301; 87086; 87324; 87449; 87493; 88304; 93005; 93306; 96374; A9537; C1751; C1889; G0378; J0692; J0696; J1100; J1650; J1815; J2370; J2405; J2704; J3010; J3490; J7030; J7050; J7070; J7999; Q9967